=== PATIENT | male | born 1950 | race Caucasian/White ===

== ENCOUNTER 2017-11-20 08:35 | Emergency (ER) | payer BC, OTHER ==
--- NOTE | 2017-11-20 09:23 | EDPHYS ---
Physician Documentation [facility] Name: Bart Forrest Age: 67 yrs Sex: Male : 1950 Arrival Date: 11/20/2017 Time: 08:39 Bed 16 Private MD: ED Physician Nury Centeno HPI: 11/20 09:20 This 67 yrs old Male presents to ER via Ambulatory with complaints of ma2 Shoulder Pain. 09:20 The patient or guardian complains of pain, that is acute. left shoulder. Context: The ma2 problem was sustained. 09:20 Context: started yesterday after got pneumococcal injection at same site . Onset: The ma2 symptoms/episode began/occurred gradually, 2 day(s) ago. Associated signs and symptoms: Pertinent negatives: abdominal pain, diaphoresis, dyspnea, neck pain, tingling. Severity of symptoms: At their worst the symptoms were mild. Historical: - Allergies: 08:48 larium; hj - Home Meds: 08:48 pantoprazole 40 mg oral TbEC 1 tab once daily [Active]; metoprolol tartrate 25 mg Oral hj tab 1 tab once daily [Active]; balsalazide 750 mg oral cap 3 caps 3 times per day [Active]; fenofibrate 150 mg oral cap 1 cap once daily [Active]; montelukast 10 mg oral tab 1 tab once daily [Active]; fluticasone 50 mcg/actuation nasal spsn 2 sprays once daily [Active]; Proctozone-HC 2.5 % rectal crea 2 times per day [Active]; Xarelto 20 mg oral tab 1 tab once daily [Active]; - PMHx: 08:48 Hypertension; Hyperlipidemia; allergies; Atrial Fib; hj - PSHx: 08:48 foot surgery; hj - Immunization history:: Adult Immunizations up to date, Last tetanus immunization: up to date Pneumococcal vaccine is up to date, Flu vaccine is up to date. - Social history:: Smoking status: Patient/guardian denies using tobacco, never smoked, Patient uses alcohol, but reports only rare drinking. ROS: 09:20 Constitutional: Negative for fever, chills, and weight loss, ENT: Negative for injury, ma2 pain, and discharge, Neck: Negative for injury, pain, and swelling, Cardiovascular: Negative for chest pain, palpitations, and edema, Abdomen/GI: Negative for abdominal pain, nausea, diarrhea, and constipation, Back: Negative for injury and pain, : Negative for injury, bleeding, discharge, and swelling, Skin: Negative for injury, rash, and discoloration, Neuro: Negative for headache, weakness, numbness, tingling, and seizure, Allergy/Immunology: Negative for hives, rash, and allergies, Endocrine: Negative for neck swelling, polydipsia, polyuria, polyphagia, and marked weight changes, Hematologic/Lymphatic: Negative for swollen nodes, abnormal bleeding, and unusual bruising. Exam: 09:20 Constitutional: This is a well developed, well nourished patient who is awake, alert, ma2 and in no acute distress. Head/Face: Normocephalic, atraumatic. Neck: Trachea midline, no thyromegaly or masses palpated, and no cervical lymphadenopathy. Supple, full range of motion without nuchal rigidity, or vertebral point tenderness. No Meningismus. Chest/axilla: Normal chest wall appearance and motion. Nontender with no deformity. No lesions are appreciated. Cardiovascular: Regular rate and rhythm with a normal S1 and S2. No gallops, murmurs, or rubs. Normal PMI, no JVD. No pulse deficits. MS/ Extremity: Pulses equal, no cyanosis. Neurovascular intact. Full, normal range of motion. Neuro: Awake and alert, GCS 15, oriented to person, place, time, and situation. Cranial nerves II-XII grossly intact. Motor strength 5/5 in all extremities. Sensory grossly intact. Cerebellar exam normal. Normal gait. Vital Signs: 08:48 BP 132 / 81; Pulse 81; Resp 18; Temp 97.9(TE); Pulse Ox 97% on R/A; Weight 86.18 kg; hj Height 5 ft. 8 in. (172.72 cm); Pain 7/10; 09:15 BP 128 / 77; Pulse 74; Resp 16 S; Pulse Ox 98% on R/A; Pain 6/10; jtb 08:48 Body Mass Index 28.89 (86.18 kg, 172.72 cm) hj MDM: 08:58 Patient medically screened. ma2 09:20 Differential diagnosis: DJD, tendonitis, MSK pain. Data reviewed: vital signs, nurses ma2 notes. Counseling: I had a detailed discussion with the patient and/or guardian regarding: the historical points, exam findings, and any diagnostic results supporting the discharge/admit diagnosis, the need for outpatient follow up. Administered Medications: 09:20 Drug: TORadol 60 mg Route: IM; Site: right gluteus; jl7 09:43 Follow up: Response: No adverse reaction; Pain is decreased jl7 Disposition: 11/20/17 09:22 Discharged to Home. Impression: Pain in left shoulder. - Condition is Stable. - Discharge Instructions: Musculoskeletal Pain. - Prescriptions for Tylenol- Codeine #3 300-30 mg Oral Tablet - take 2 tablet by ORAL route every 6 hours As needed; 30 tablet. - Medication Reconciliation Form, Thank You Letter, Antibiotic Education, Prescription Opioid Use form. - Follow up: Private Physician; When: Tomorrow; Reason: Continuance of care. - Problem is new. - Symptoms are unchanged. Signatures: Aquiles Metzger RN RN hj Judy Billings RN RN jl7 Nury Centeno MD MD [facility] Que Pierre j
--- NOTE | 2017-11-20 09:23 | ER ---
Nurse's Notes [facility] Name: Bart Forrest Age: 67 yrs Sex: Male : 1950 Arrival Date: 11/20/2017 Time: 08:39 Bed 16 Private MD: Diagnosis: Pain in left shoulder Presentation: 11/20 08:40 Presenting complaint: Patient states: on Wednesday, i had pneumonia shot on the L hj shoulder at [facility] in [place], the pain on the area is getting worse after the shot until now, the pain is from the L shoulder and radiates to the elbow; denies fever and chills; denies numbness on tingling on the L arm;. Transition of care: patient was not received from another setting of care. Onset of symptoms was November 20, 2017. Care prior to arrival: None. 08:40 Method Of Arrival: Ambulatory 08:40 Acuity: ROBERTO 4 hj Triage Assessment: 08:48 General: Appears in no apparent distress. uncomfortable, Behavior is calm, cooperative, hj appropriate for age. Pain: Complains of pain in anterior aspect of left shoulder, left bicep and left antecubital area. Historical: - Allergies: 08:48 larium; hj - Home Meds: 08:48 pantoprazole 40 mg oral TbEC 1 tab once daily [Active]; metoprolol tartrate 25 mg Oral hj tab 1 tab once daily [Active]; balsalazide 750 mg oral cap 3 caps 3 times per day [Active]; fenofibrate 150 mg oral cap 1 cap once daily [Active]; montelukast 10 mg oral tab 1 tab once daily [Active]; fluticasone 50 mcg/actuation nasal spsn 2 sprays once daily [Active]; Proctozone-HC 2.5 % rectal crea 2 times per day [Active]; Xarelto 20 mg oral tab 1 tab once daily [Active]; - PMHx: 08:48 Hypertension; Hyperlipidemia; allergies; Atrial Fib; hj - PSHx: 08:48 foot surgery; hj - Immunization history:: Adult Immunizations up to date, Last tetanus immunization: up to date Pneumococcal vaccine is up to date, Flu vaccine is up to date. - Social history:: Smoking status: Patient/guardian denies using tobacco, never smoked, Patient uses alcohol, but reports only rare drinking. Screenin:00 Abuse screen: Denies threats or abuse. Denies injuries from another. Nutritional jtb screening: No deficits noted. Tuberculosis screening: No symptoms or risk factors identified. Fall Risk None identified. Assessment: 09:00 General: Appears in no apparent distress. uncomfortable, Behavior is calm, cooperative, jtb appropriate for age, Pt reports receiving a pneumonia vaccine in the left upper shoulder area Wednesday which started the pain.. Pain: Complains of pain in anterior aspect of left shoulder Pain radiates to left bicep, left elbow and left trapezius Pain currently is 7 out of 10 on a pain scale. at worst was 10 out of 10 on a pain scale. Quality of pain is described as stabbing, Pain began Wednesday Is continuous. Neuro: Level of Consciousness is awake, alert, obeys commands, Oriented to person, place, time, situation. Cardiovascular: Patient's skin is warm and dry. Respiratory: Airway is patent Respiratory effort is even, unlabored, Respiratory pattern is regular, symmetrical. GI: No signs and/or symptoms were reported involving the gastrointestinal system. : No signs and/or symptoms were reported regarding the genitourinary system. EENT: No signs and/or symptoms were reported regarding the EENT system. Derm: Skin is intact, Skin is pink, warm \T\ dry. Musculoskeletal: Range of motion: limited in left shoulder. Vital Signs: 08:48 BP 132 / 81; Pulse 81; Resp 18; Temp 97.9(TE); Pulse Ox 97% on R/A; Weight 86.18 kg; hj Height 5 ft. 8 in. (172.72 cm); Pain 7/10; 09:15 BP 128 / 77; Pulse 74; Resp 16 S; Pulse Ox 98% on R/A; Pain 6/10; jtb 08:48 Body Mass Index 28.89 (86.18 kg, 172.72 cm) ED Course: 08:39 Patient arrived in ED. rg4 08:43 Triage completed. hj 08:48 Arm band placed on right wrist. hj 08:51 Judy Billings RN is Primary Nurse. jl7 08:58 Nury Centeno MD is Attending Physician. ma2 09:00 Patient has correct armband on for positive identification. Placed in gown. Bed in low jtb position. Call light in reach. Side rails up X 1. Pulse ox on. NIBP on. 09:43 No provider procedures requiring assistance completed. Patient did not have IV access jtb during this emergency room visit. Administered Medications: 09:20 Drug: TORadol 60 mg Route: IM; Site: right gluteus; jl7 09:43 Follow up: Response: No adverse reaction; Pain is decreased jl7 Outcome: 09:22 Discharge ordered by . santy 09:43 Discharged to home ambulatory. jtb 09:43 Condition: stable 09:43 Discharge instructions given to patient, family, Instructed on discharge instructions, follow up and referral plans. medication usage, Demonstrated understanding of instructions, follow-up care, medications, Prescriptions given X 1. 09:45 Attestation : I agree with everything documented by Que Pierre, Student Nurse. jl7 09:46 Patient left the ED. jtb Signatures: Aquiles Metzger, RN RN Barb Ontiveros 4 Judy Billings RN RN jl7 Nury Centeno MD MD ma2 Bryson, James jraymundo Corrections: (The following items were deleted from the chart) 09:14 09:00 General: Appears in no apparent distress. uncomfortable, Behavior is calm, jtb cooperative, appropriate for age, jtb
[2017-11-20] MEDS ORDERED: KETOROLAC 30 MG/ML INJ ONE (09:32)
== END 2017-11-20 09:46 | disposition home or self-care (01) ==
LOC: ER 08:35
DX: M25.512 Pain in left shoulder (principal); I10 Essential (primary) hypertension; E78.5 Hyperlipidemia, unspecified; I48.91 Unspecified atrial fibrillation; Z88.8 Allergy status to other drugs, medicaments and biological substances
CPT/HCPCS: 96372; 99283

== ENCOUNTER 2018-04-13 07:31 | Emergency (ER) | payer OTHER ==
[2018-04-13] MEDS ORDERED: PHENYLEPHRINE 0.5% NOSE 15ML NAS ONE (07:48)
--- NOTE | 2018-04-13 09:56 | ER ---
Nurse's Notes [facility] Name: Bart Forrest Age: 68 yrs Sex: Male : 1950 Arrival Date: 04/13/2018 Time: 07:33 Bed 20 Private MD: Ming Townsend T Diagnosis: Epistaxis Presentation: 04/13 07:36 Presenting complaint: Patient states: Had sinus surgery 1 week ago, started bleeding at jl7 0130 this morning and hasn't stopped, takes Xarelto. Transition of care: patient was not received from another setting of care. Onset of symptoms was April 13, 2018. Risk Assessment: Do you want to hurt yourself or someone else? Patient reports no desire to harm self or others. Initial Sepsis Screen: Does the patient meet any 2 criteria? No. Patient's initial sepsis screen is negative. Does the patient have a suspected source of infection? No. Patient's initial sepsis screen is negative. Care prior to arrival: None. 07:36 Method Of Arrival: Ambulatory [facility] 07:36 Acuity: ROBERTO 3 jl7 Triage Assessment: 07:55 General: Appears in no apparent distress. uncomfortable, Behavior is calm, cooperative, jl7 appropriate for age. Pain: Denies pain. EENT: Nares with bleeding noted on left. Neuro: Level of Consciousness is awake, alert, obeys commands, Oriented to person, place, time, situation. Cardiovascular: Patient's skin is warm and dry. Respiratory: Airway is patent Respiratory effort is even, unlabored, Respiratory pattern is regular, symmetrical. GI: No signs and/or symptoms were reported involving the gastrointestinal system. : No signs and/or symptoms were reported regarding the genitourinary system. Derm: Skin is pink, warm \T\ dry. Musculoskeletal: No signs and/or symptoms reported regarding the musculoskeletal system. Historical: - Allergies: 07:55 larium; jl7 - Home Meds: 07:55 pantoprazole 40 mg Oral TbEC 1 tab once daily [Active]; fenofibrate 145 mg oral cap jl7 once daily [Active]; montelukast 10 mg Oral tab 1 tab once daily [Active]; balsalazide 750 mg Oral cap 3 caps [Active]; metoprolol tartrate 25 mg Oral tab 1 tab once daily [Active]; Xarelto 20 mg Oral tab 1 tab once daily [Active]; ferrous gluconate 324 mg (36 mg iron) Oral tab [Active]; fluticasone 50 mcg/actuation nasal spsn 2 sprays once daily [Active]; Proctozone-HC 2.5 % rectal crea 2 times per day [Active]; Vega 128 Opht [Active]; mupirocin topical topical [Active]; - PMHx: 07:55 allergies; Atrial Fib; Hyperlipidemia; Hypertension; jl7 - PSHx: 07:55 Nasal Surgery; Right foot surgery; jl7 - Immunization history:: Adult Immunizations up to date. - Social history:: Smoking status: Patient/guardian denies using tobacco. - Family history:: not pertinent. - Ebola Screening: : No symptoms or risks identified at this time. - Hospitalizations: : No recent hospitalization is reported. Screenin:58 Abuse screen: Denies threats or abuse. Denies injuries from another. Nutritional jl7 screening: No deficits noted. Tuberculosis screening: No symptoms or risk factors identified. Fall Risk None identified. Assessment: 07:45 Reassessment: Dr. Han administered nasal spray and placed nose clamp. jl7 07:58 General: See triage assessment. jl7 08:25 Reassessment: Dr. Han removed nose clamp and pt had a small amount of blood start to jl7 drip. Dr. Han placed a rapid rhino. Will continue to monitor. 09:30 Reassessment: Patient and/or family updated on plan of care and expected duration. Pain jl7 level reassessed. Patient is alert, oriented x 3, equal unlabored respirations, skin warm/dry/pink. 10:05 Reassessment: pt attempted to get out of bed and reported his nose started bleeding jl7 again, ERD notified. 10:30 Reassessment: Pt's bleeding appears to be clotted off, pt reported talking to his ENT jl7 doctor and has an appointment today at 1545. 10:56 Reassessment: Pt states his ENT doctor is requesting for blood work to be done prior to jl7 discharge so she will have the results for his appointment today. ERD notified. Pt will be discharged once results are back. 12:09 Reassessment: Rapid rhino remains in place, no active bleeding noted. Pt is discharged jl7 and will leave once his returns. Vital Signs: 07:55 BP 142 / 59; Pulse 72; Resp 16 S; Temp 98.2(TE); Pulse Ox 97% on R/A; Weight 86.18 kg jl7 (R); Height 5 ft. 8 in. (172.72 cm) (R); Pain 0/10; 08:35 BP 125 / 59; Pulse 57; Resp 16; Pulse Ox 97% on R/A; jl7 09:55 BP 118 / 69; Pulse 56; Resp 19 S; Pulse Ox 98% on R/A; jl7 10:56 BP 127 / 72; Pulse 61; Resp 16 S; Pulse Ox 98% on R/A; jl7 12:09 BP 128 / 71; Pulse 60; Resp 16; Pulse Ox 98% ; jl7 07:55 Body Mass Index 28.89 (86.18 kg, 172.72 cm) jl7 ED Course: 07:33 Patient arrived in ED. mr 07:33 Ming Townsend MD is Private Physician. mr 07:36 Linus Han MD is Attending Physician. rn 07:36 Judy Billings RN is Primary Nurse. jl7 07:48 Triage completed. jl7 07:55 Arm band placed on right wrist. jl7 07:58 Patient has correct armband on for positive identification. Bed in low position. Call jl7 light in reach. Side rails up X 1. Pulse ox on. NIBP on. 09:56 Ming Townsend MD is Referral Physician. rn 09:56 Referral Physician role handed off by Ming Townsend MD rn 11:08 Initial lab(s) drawn, by ks, sent to lab. Inserted saline lock: 20 gauge in left jl7 antecubital area, using aseptic technique. Blood collected. 12:09 No provider procedures requiring assistance completed. IV discontinued, intact, jl7 bleeding controlled, No redness/swelling at site. Pressure dressing applied. Administered Medications: 07:50 Drug: Merrill-Synephrine [place] 0.5 % 1 sprays Route: Intranasal; Site: both nares; jl7 08:01 CANCELLED (Other Intervention Used): Oxymetazoline Drops (0.05 %) 1 sprays Intranasal jl7 once Outcome: 09:56 Discharge ordered by . rn 12:09 Discharged to home ambulatory. jl7 12:09 Condition: stable 12:09 Discharge instructions given to patient, Instructed on discharge instructions, follow up and referral plans. medication usage, Demonstrated understanding of instructions, follow-up care, medications, Prescriptions given X 1. 12:24 Patient left the ED. jl7 Signatures: Starla Coates Roman, MD MD rn Leal, SON Kim RN vince Corrections: (The following items were deleted from the chart) 12:12 12:09 Discharged to home ambulatory, jl7 jl7 12:12 12:09 Discharge instructions given to patient, Instructed on discharge instructions, jl7 follow up and referral plans. Demonstrated understanding of instructions, follow-up care, jl7
--- NOTE | 2018-04-13 09:56 | EDPHYS ---
Physician Documentation [facility] Name: Bart Forrest Age: 68 yrs Sex: Male : 1950 Arrival Date: 04/13/2018 Time: 07:33 Bed 20 Private MD: Ming Townsend T ED Physician Linus Han HPI: 04/13 07:49 This 68 yrs old Male presents to ER via Ambulatory with complaints of Nose rn bleed. 07:49 The patient presents with a nose bleed, that is apparently anterior, occurred from an rn unknown cause, that is continuous small amount. Onset: The symptoms/episode began/occurred this morning. Associated signs and symptoms: Loss of consciousness: the patient experienced no loss of consciousness, Pertinent negatives: chest pain, lightheadedness, shortness of breath. Severity of symptoms: At their worst the symptoms were moderate in the emergency department the symptoms have improved. The patient has not experienced similar symptoms in the past. The patient has been recently seen by a physician:. Reports recent sinus surgery, has been doing fine this week, this AM woke up with nose bleed, slowly improving, tried nasal rinse, no sob/lightheadedness, on xarelto. Sleep with cpap.. Historical: - Allergies: 07:55 larium; jl7 - Home Meds: 07:55 pantoprazole 40 mg Oral TbEC 1 tab once daily [Active]; fenofibrate 145 mg oral cap jl7 once daily [Active]; montelukast 10 mg Oral tab 1 tab once daily [Active]; balsalazide 750 mg Oral cap 3 caps [Active]; metoprolol tartrate 25 mg Oral tab 1 tab once daily [Active]; Xarelto 20 mg Oral tab 1 tab once daily [Active]; ferrous gluconate 324 mg (36 mg iron) Oral tab [Active]; fluticasone 50 mcg/actuation nasal spsn 2 sprays once daily [Active]; Proctozone-HC 2.5 % rectal crea 2 times per day [Active]; Vega 128 Opht [Active]; mupirocin topical topical [Active]; - PMHx: 07:55 allergies; Atrial Fib; Hyperlipidemia; Hypertension; jl7 - PSHx: 07:55 Nasal Surgery; Right foot surgery; jl7 - Immunization history:: Adult Immunizations up to date. - Social history:: Smoking status: Patient/guardian denies using tobacco. - Family history:: not pertinent. - Ebola Screening: : No symptoms or risks identified at this time. - Hospitalizations: : No recent hospitalization is reported. 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 Exam: 07:49 Constitutional: This is a well developed, well nourished patient who is awake, alert, rn and in no acute distress. ENT: + anterior blood in left nare, slow bleeding with some clot visualized, unable to visualize exact bleeder. Vital Signs: 07:55 BP 142 / 59; Pulse 72; Resp 16 S; Temp 98.2(TE); Pulse Ox 97% on R/A; Weight 86.18 kg jl7 (R); Height 5 ft. 8 in. (172.72 cm) (R); Pain 0/10; 08:35 BP 125 / 59; Pulse 57; Resp 16; Pulse Ox 97% on R/A; jl7 09:55 BP 118 / 69; Pulse 56; Resp 19 S; Pulse Ox 98% on R/A; jl7 10:56 BP 127 / 72; Pulse 61; Resp 16 S; Pulse Ox 98% on R/A; jl7 12:09 BP 128 / 71; Pulse 60; Resp 16; Pulse Ox 98% ; jl7 07:55 Body Mass Index 28.89 (86.18 kg, 172.72 cm) jl7 Procedures: 08:37 Epistaxis treatment: A small amount of bleeding noted from Treated using Oxymetazoline rn sprays, nasal clamp, anterior packing, Bleeding stopped. MDM: 07:36 Patient medically screened. rn 09:55 Differential diagnosis: spontaneous epistaxis. Data reviewed: vital signs, nurses rn notes, and as a result, I will discharge patient. Counseling: I had a detailed discussion with the patient and/or guardian regarding: the historical points, exam findings, and any diagnostic results supporting the discharge/admit diagnosis, the need for outpatient follow up, to return to the emergency department if symptoms worsen or persist or if there are any questions or concerns that arise at home. Response to treatment: the patient's symptoms have markedly improved after treatment, and as a result, I will discharge patient. Special discussion: I discussed with the patient/guardian in detail that at this point there is no indication for admission to the hospital. It is understood, however, that if the symptoms persist or worsen the patient needs to return immediately for re-evaluation. Based on the history and exam findings, there is no indication for further emergent testing or inpatient evaluation. I discussed with the patient/guardian the need to see the ENT specialist for further evaluation of the symptoms. ED course: Pt is calling his ENT for f/u today, told to return if worsens. . 04/13 10:55 Order name: CBC with Diff; Complete Time: 11:33 rn 04/13 10:55 Order name: Protime (+inr); Complete Time: 11:33 rn 04/13 10:55 Order name: Ptt, Activated; Complete Time: 11:33 rn 04/13 10:55 Order name: Basic Metabolic Panel; Complete Time: 11:33 rn 04/13 10:55 Order name: IV Start; Complete Time: 11:08 rn Administered Medications: 07:50 Drug: Merrill-Synephrine [place] 0.5 % 1 sprays Route: Intranasal; Site: both nares; jl7 08:01 CANCELLED (Other Intervention Used): Oxymetazoline Drops (0.05 %) 1 sprays Intranasal jl7 once Disposition: 04/13/18 09:56 Discharged to Home. Impression: Epistaxis. - Condition is Stable. - Discharge Instructions: Nosebleed, Adult. - Prescriptions for Augmentin 875- 125 mg Oral Tablet - take 1 tablet by ORAL route every 12 hours for 10 days; 20 tablet. - Medication Reconciliation Form, Thank You Letter, Antibiotic Education, Prescription Opioid Use form. - Follow up: Ming Townsend MD; When: As needed; Reason: Recheck today's complaints, Re-evaluation by your physician. Follow up: Private Physician; When: Upon discharge from the Emergency Department; Reason: Recheck today's complaints, Re-evaluation by your physician. - Problem is new. - Symptoms have improved. Signatures: Dispatcher [employer] EDMS Linus Han MD MD rn Billings, Jahala, RN RN jl7 Corrections: (The following items were deleted from the chart) 08:01 07:49 Oxymetazoline Drops (0.05 %) 1 sprays Intranasal once ordered. orquidea jl7 12:24 09:56 04/13/2018 09:56 Discharged to Home. Impression: Epistaxis. Condition is Stable. jl7 Forms are Medication Reconciliation Form, Thank You Letter, Antibiotic Education, Prescription Opioid Use. Follow up: Private Physician; When: Upon discharge from the Emergency Department; Reason: Recheck today's complaints, Re-evaluation by your physician. Problem is new. Symptoms have improved. rn
[2018-04-13 11:22] LABS: Absolute Lymphocytes (CBC) 1.1 K/uL (0.7-4.9); Absolute Monocytes 0.5 K/uL (0.1-1.3); Absolute Neutrophil 4.2 K/uL (1.8-8.0); Basophils % 0.6 % (0-1.3); Eosinophils % 1.3 % (0-4.4); Hematocrit 38.2 % (39.6-49.0); Lymphocytes % 17.8 % (15.3-44.8); MCH 29.4 pg (27.0-35.0); MCV 86.9 fL (80-100); MPV 8.4 fL (7.6-11.3); Monocytes % 8.8 % (3.3-12.3); RBC Red Blood Cell Count 4.39 M/uL (4.33-5.43)
[2018-04-13 11:24] LABS: Protime INR 1.32
[2018-04-13 11:28] LABS: Potassium 4.4 mmol/L (3.5-5.1)
== END 2018-04-13 12:24 | disposition home or self-care (01) ==
LOC: ER 07:31
PROC: 2Y41X5Z Packing of Nasal Region using Packing Material (ICD-10-PCS; principal; 2018-04-13)
DX: R04.0 Epistaxis (principal); I10 Essential (primary) hypertension; I48.91 Unspecified atrial fibrillation; E78.5 Hyperlipidemia, unspecified; Z79.02 Long term (current) use of antithrombotics/antiplatelets; Z88.8 Allergy status to other drugs, medicaments and biological substances
CPT/HCPCS: 30901; 36415; 80048; 85025; 85610; 85730; 99284

== ENCOUNTER 2022-10-28 06:22 | Day surgery (SDC) | payer OTHER ==
[2022-10-28 07:04] LABS: Hematocrit 33.3 % (39.6-49.0); MCV 86.4 fL (80-100); MPV 7.5 fL (7.6-11.3); RBC Red Blood Cell Count 3.85 M/uL (4.33-5.43)
[2022-10-28 07:17] LABS: Potassium 3.8 mmol/L (3.5-5.1)
[2022-10-28] MEDS ORDERED: CEFAZOLIN SODIUM 1 GM/VIAL ONE (07:32)
[2022-10-28] MEDS ORDERED: Ringers Lactate 1,000 ML IV ONE (07:32)
--- NOTE | 2022-10-28 07:46 | RAD REPORT ---
EXAM DESCRIPTION: RAD - Chest Single View - 10/28/2022 6:54 am CLINICAL HISTORY: PREOP COMPARISON: No comparisons FINDINGS: Lines: None. Lungs: No evidence of edema or pneumonia. Pleural: No significant pleural effusions or pneumothorax. Cardiac: The heart size is within normal limits. Mediastinum: Within normal limits. Bones: No acute fractures. Other: None IMPRESSION: No acute cardiopulmonary disease.
[2022-10-28] MEDS ORDERED: CELECOXIB 100 MG CAPSULE ONE (09:12)
[2022-10-28] MEDS ORDERED: BUPIVACAINE 0.5% PF 10 ML VIAL ONE (09:12)
[2022-10-28] MEDS ORDERED: ACETAMINOPHEN 500 MG TAB ONE (09:12)
[2022-10-28] MEDS ORDERED: ROCURONIUM 50 MG/5 ML VIAL IV ONE (09:16)
[2022-10-28] MEDS ORDERED: propofoL 200 MG/20 ML VIAL IV ONE (09:16)
[2022-10-28] MEDS ORDERED: FENTANYL CITR 100 MCG/2 ML ONE (09:16)
[2022-10-28] MEDS ORDERED: LIDOCAINE 2% MPF 5 ML VIAL ONE (09:16)
[2022-10-28] MEDS ORDERED: ONDANSETRON 4 MG/2 ML VIAL ONE (09:16)
[2022-10-28] MEDS ORDERED: dexAMETHasone 10 MG/ML VIAL ONE (09:18)
[2022-10-28] MEDS ORDERED: KETOROLAC 30 MG/ML INJ ONE (09:19)
[2022-10-28] MEDS ORDERED: NS 0.9% VIAL 10 ML ONE (09:57)
[2022-10-28] MEDS ORDERED: GLYCOPYRROLATE 0.2 MG/ML SYR ONE ×2 (10:07→10:27)
[2022-10-28] MEDS ORDERED: EPHEDRINE SULF 50 MG/ML VIAL ONE (10:09)
[2022-10-28] MEDS ORDERED: NEOSTIGMINE 1 MG/ML -10 ML VIAL ONE (10:28)
--- NOTE | 2022-10-28 10:28 | P.OP ---
Date of Service: 10/28/22 Preop diagnosis: Umbilical hernia Postop diagnosis: Same Procedure performed: Laparoscopic assisted repair of umbilical hernia Surgeon: Ayo Hall MD Wafer Slicer: SUN Ibarra Estimated blood loss: Minimal Specimen: Hernia sac and contents Findings: As above Anesthesia: General Complications: None Drains: None Fluids and blood products: Nonapplicable Disposition: Recovery room Operative note: Patient brought to the OR and placed in supine position. General anesthesia begun. Patient prepped and draped in the usual sterile fashion. Marcaine 0.5% infiltrated locally. 15 blade used to make a 1 cm left upper quadrant incision. Subcutaneous tissue divided. Fascia identified and divided. #1 Vicryl stay suture placed. Peritoneal cavity entered with sharp and blunt dissection. 12 mm trocar placed into the peritoneal cavity under direct vision. Pneumoperitoneum established. And then 5 mm trocar placed in the left lower quadrant. Under direct vision. Laparoscopy revealed a small umbilical hernia approximately 2 cm in diameter. There was no incarceration present. A 3 cm incision was made right over the umbilicus. Subcutaneous tissue divided. Hernia sac and contents identified. Hernia sac excised sent to pathology as specimen. 2 cm defect remained. Ventralex mesh placed into the peritoneal cavity in the standard fashion. #1 PDS [id number] suture used to secure the mesh and closed the midline fascia. Subsequently pneumoperitoneum reestablished. And pro tacker used to tack the mesh to the peritoneal surface. Complete coverage of the defect accomplished with at least 3 cm margins on all end. Subsequently all trocars removed under direct vision. Stay sutures tied to reapproximate the fascial defect. Subcutaneous wounds irrigated and bleeding controlled with cautery. 0 chromic used to approximate subcutaneous tissue and close skin. Sterile dressing applied. Patient awakened and taken to recovery room in good general condition. CC: Dr. Townsend's office
[2022-10-28] MEDS ORDERED: HYDROCODONE/APAP 7.5/325 MG TAB PO PRN (10:30)
[2022-10-28] MEDS ORDERED: HYDROMORPHONE HCL 1 MG/ML INJ ONE (10:59)
[2022-10-28] MEDS ORDERED: HYDROCODONE/APAP 7.5/325 MG TAB ONE (11:38)
[2022-10-28 13:07] VITALS: BP 112/58; TEMP 96.9; O2SAT 95
--- NOTE | 2022-10-28 15:19 | EKG ---
Test Date: 2022-10-28 Test Time: 07:29:37 Child Care Lead Teacher: KRYSTEN MEASUREMENT RESULTS: Intervals: Rate: 51 IN: 148 QRSD: 102 QT: 438 QTc: 403 [place]: P: 60 IN: 148 QRS: 45 T: 20 INTERPRETIVE STATEMENTS: Sinus bradycardia Otherwise normal ECG Compared to ECG 09/11/2004 05:49:00 Sinus rhythm no longer present T-wave abnormality no longer present Electronically Signed On 10-28-22 15:19:07 EYELET CUTTER by Dewey Bond
== END 2022-10-28 12:40 | disposition home or self-care (01) ==
LOC: PRE 06:22 → OR 12:40
PROVIDERS: ATTEND Surgery
PROC: 0WUF4JZ Supplement Abdominal Wall with Synthetic Substitute, Percutaneous Endoscopic Approach (ICD-10-PCS; principal; 2022-10-28 08:45)
DX: K42.9 Umbilical hernia without obstruction or gangrene (principal)
CPT/HCPCS: 93005; 85025; 80048; 36415; 88302; 71045; 49591; J2704; J2710; J2001; J3010; J1100; A4216; J1170; J7120; J2405; J0690

== ENCOUNTER 2022-10-28 15:39 | Inpatient (IN) | payer OTHER ==
--- OUTSIDE RECORDS SUMMARY | 2022-10-28 15:44 | XMS REPORT | Continuity of Care Document ---
:1950 [facility] t Address Formerly [facility], [id number] [place] [address] Care Team Providers Name Role Phone KEEGAN STRATTON Primary Care Physician Unavailable [facility] Attending Clinician Unavailable ZABRINA GASTON Attending Clinician Unavailable Zabrina Gastno MD Attending Clinician Doctor Unassigned, [place] Attending Clinician Unavailable ROSLYN PERRY Attending Clinician Unavailable [facility] Admitting Clinician Unavailable ZABRINA GASTON Admitting Clinician Unavailable Payers Payer Name Policy Type Policy Number Effective Date Expiration Date S ourhugo [employer] PPO POS EPO [id number] 2013 CHOICE 00:00:00 [employer] MANAGED [id number] 2021 MEDICARE PPO-PEDRO 00:00:00 [employer] MEDICARE HMO [id number] 2019 POS 00:00:00 Problems Condition Condition Condition Status Onset Resolution Last Treating Co mments Source Name Details Category Date Date Treatment Clinician Date No known No known Disease Unive rs active active ity of problems problems [facility] Allergies, Adverse Reactions, Alerts Allergy Allergy Status Severity Reaction(s) Onset Inactive Treating Comm ents Source Name Type Date Date Clinician Co Propensi Active Other - See Lowers Uni vers [id number] ty to comments 5-23 blood ity of Oil-Omeg adverse 00:00: pressure [place] a 3-E reaction 00 Medical s Branch Mefloqui Propensi Active Other - See Migraine s Univers ne Hcl ty to comments 01-26 ity of adverse 00:00: [place] reaction 00 Medical s Branch Pitavast Propensi Active Other - See Muscle U nivers atin ty to comments 01-26 weakness ity of adverse 00:00: [place] reaction 00 Medical s Branch Lovastat Propensi Active Other - See Lowers U nivers in ty to comments 01-26 cholester ity o f adverse 00:00: ol [place] reaction 00 Medical s Branch Pravasta Propensi Active Other - See Lowers U nivers tin ty to comments 01-26 cholestro ity o f adverse 00:00: l [place] reaction 00 Medical s Branch Amoxicil Propensi Active Diarrhea Univ ers billie-Pot ty to 03-07 ity of Clavulan adverse 00:00: [place] ate reaction 00 Medical s Branch Simvasta Propensi Active Other - See Mild U nivers tin ty to comments 03-07 Muscle ity of adverse 00:00: Pains in [place] reaction 00 the legs Medica l s Branch Naproxen Drug Active Hives WHELPS [facility] S[facility] Allergy 02-07 (BLOOD [facility] 00:00: BLISTERS) Medical 00 Center Amoxicil Drug Active Diarrhea [facility] Allergy 02-07 [facility] 00:[facility]: Medical 00 Center Mefloqui Drug Active Other (See MIGRAINES [facility] Allergy Comments) 02-07 [facility] 00:[facility] Medical 00 Center Simvasta Drug Active Other (See MUSCLE [facility] tin Allergy Comments) 02-07 PAIN [facility] 00:[facility]: Medical 00 Center Metoprol Drug Active Itching [facility] Allergy 02-07 [facility] Succinat 00:[facility]: Medical e 00 Center Amoxicil Propensi Active Diarrhea Univ ers billie ty to 02-07 ity of adverse 00:00: [place] reaction 00 Medical s Branch Mefloqui Propensi Active Other - See MIGRAINE S Univers ne ty to comments 02-07 ity of adverse 00:00: [place] reaction 00 Medical s Branch Metoprol Propensi Active Itching Unive rs ol ty to 02-07 ity of Succinat adverse 00:00: [place] e reaction 00 Medical s Branch Naproxen Propensi Active Other - See WHELPS U nivers Sodium ty to comments 02-07 (BLOOD ity of adverse 00:00: BLISTERS) [place] reaction 00 Medical s Branch NAPROXEN Allergy Active High Hives [facility] SODIUM 6-04 [facility]: Medical 00 Center AMOXICIL Allergy Active Med Diarrhea [facility] 6[facility]04 [facility] 00:[facility] Medical 00 Center MEFLOQUI Allergy Active Low Other [facility] 6-04 [facility] 00:[facility]: Medical 00 Center SIMVASTA Allergy Active Low Other [facility] TIN 6-04 [facility] 00:[facility]: Medical 00 Center METOPROL Allergy Active Low Itching [facility] OL 6-04 [facility] SUCCINAT 00:00: Medical E 00 Center Social History Social Habit Start Date Stop Date Quantity Comments Source History SDOH [facility] Alcohol Frequency Medical Center History SDOH [facility] Alcohol Std Medical Cente r Drinks History SDOH [facility] Alcohol Binge Medical Betty ter Exposure to 2022-02-15 2022-02-25 Not sure [facility] SARS-CoV-2 00:00:00 13:51:00 [facility] (event) Branch Alcohol intake 2020-03-07 2020-03-07 [facility]er [facility] alcohol [facility] (finding) History SDOH 2014-02-07 2014-02-[address] [facility] Alcohol Comment 00:00:00 00:00:00 Medical C enter Tobacco use and 2014-02-07 2014-02-[address] [facility] exposure 00:00:00 00:00:00 Medical Center Sex Assigned At [address] [address] [facility] 00:00:00 00:00:00 Medical Center Smoking Status Start Date Stop Date Source Never smoker [facility] Medical Branch Medications Ordered Filled Start Stop Current Ordering Indication Dosage Frequency Signature Comments Components Source Medication Medication Date Date Medication? Clinician (SIG) Name Name montelukast Yes 10mg QD Take [address] (SINGULAIR) 03-07 by mouth Luke s 10 mg 12:15: nightly. Medical tablet 33 [place] balsalazide 2020-0 Yes 2250mg Q.5D Take 2,[address] (COLAZAL) 7-02 mg by [facility] 750 mg 12:15: mouth 2 Medical capsule 33 (two) Center times daily. desoximetas 2020-0 Yes Q.5D Apply [facility] one 7- topically [facility] (TOPICORT) 12:15: 2 (two) Medi hu 0.25 % 33 times Center cream daily. fexofenadin 2020-0 Yes 180mg QD Take [address] (KALEB) 7-02 mg by [facility] 180 MG 12:15: mouth Medical tablet 33 daily. [place] acetaminoph 2020-0 Yes 500mg Take [address] en 7-02 mg by [facility] (TYLENOL) 12:15: mouth Medical 500 MG 33 every 6 Center tablet (six) hours as needed for Pain. fenofibrate 2020-0 Yes 145mg QD Take [address] (TRICOR) 7-02 mg by [facility] 145 MG 12:15: mouth Medical tablet 33 daily. [place] fluticasone 2020-0 Yes 1{spray QD [address] propionate 7- } Nasal [facility] (FLONASE) 12:15: route Medical 50 33 daily. Center mcg/actuati on nasal spray Missing or 2020-[address] Non-Formula 7- [facility] ry 12:15: Medical Medication [address] [place] [address] folic acid 2019-0 Yes 1mg QD Take [address] (FOLVITE) 1 7-02 by mouth Luke s MG tablet 12:15: daily. Medica l 33 [place] ferrous 2020-0 Yes Take by [facility] gluconate 7-02 mouth. [facility] 324 mg 12:15: Medical (37.[address] [place] [address] iron) Tab zinc 2019-0 Yes 50mg QD Take [address] gluconate 7-02 by mouth [facility] 50 mg 12:15: daily. Medical tablet 33 [place] guaiFENesin 2020-0 Yes 1200mg Q.5D Take 1,[address] (MUCINEX) 7-02 mg by [facility] 600 mg 12 12:15: mouth 2 Medic al hr tablet 33 (two) Center times daily. 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 Medic al 20 MG 33 Center tablet metoprolol 2019-0 Yes 25mg QD Take [address] (TOPROL-XL) 7-02 by mouth Luke s 25 MG 24 hr 12:15: daily. Medi hu tablet 33 Center montelukast 2019-0 Yes 10mg QD Take [address] (SINGULAIR) -02 by mouth Luke s 10 mg 12:15: nightly. Medical tablet 33 Center balsalazide 2019-0 Yes 2250mg Q.5D Take 2,[address] (COLAZAL) 7-02 mg by [facility] 750 mg 12:15: mouth 2 Medical capsule 33 (two) Center times daily. desoximetas 2020-0 Yes Q.5D Apply [facility] t one 03-07 topically [facility] (TOPICORT) 12:15: 2 (two) Medi hu 0.25 % 33 times Center cream daily. fexofenadin 2019-0 Yes 180mg QD Take [address] [facility] (KALEB) 7-02 mg by [facility] 180 MG 12:15: mouth Medical tablet 33 daily. [place] acetaminoph 2019-0 Yes 500mg Take [address] en 7-02 mg by [facility] (TYLENOL) 12:15: mouth Medical 500 MG 33 every 6 Center tablet (six) hours as needed for Pain. fenofibrate 2019-0 Yes 145mg QD Take [address] (TRICOR) 7-02 mg by [facility] 145 MG 12:15: mouth Medical tablet 33 daily. [place] fluticasone 2019-0 Yes 1{spray QD [address] propionate 03-07 } Nasal [facility] (FLONASE) 12:15: route Medical 50 33 daily. Center mcg/actuati on nasal spray Missing or 2019-[address] Non-Formula 03-07 [facility] ry 12:15: Medical Medication 33 [place] folic acid 2019-0 Yes 1mg QD Take [address] (FOLVITE) 1 - by mouth Luke s MG tablet 12:15: daily. Medica l 33 Center ferrous 2020-0 Yes Take by [facility] gluconate - mouth. [facility] 324 mg 12:15: Medical (37.5 mg 33 Center iron) Tab zinc 2019-0 Yes 50mg QD Take [address] gluconate 7-02 by mouth [facility] 50 mg 12:15: daily. Medical tablet 33 [place] guaiFENesin 2020-0 Yes 1200mg Q.5D Take 1,[address] (MUCINEX) 7-02 mg by [facility] 600 mg 12 12:15: mouth 2 Medic al hr tablet 33 (two) Center times daily. 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 Medic al [address] [place] [address] tablet metoprolol 2019-0 Yes 25mg QD Take [address] (TOPROL-XL) 7-02 by mouth Luke s 25 MG 24 hr 12:15: daily. Medi hu tablet 33 [place] montelukast 2020-0 Yes 10mg QD Take [address] (SINGULAIR) 7-02 by mouth Luke s 10 mg 12:15: nightly. Medical tablet 33 [place] balsalazide 2019-0 Yes 2250mg Q.5D Take 2,[address] (COLAZAL) 7-02 mg by [facility]ukes 750 mg 12:15: mouth 2 Medical capsule 33 (two) Center times daily. desoximetas 2020-0 Yes Q.5D Apply [facility] t one 03-07 topically [facility] (TOPICORT) 12:15: 2 (two) Medi hu 0.25 % 33 times Center cream daily. fexofenadin 2020-0 Yes 180mg QD Take [address] (KALEB) 7-02 mg by [facility] 180 MG 12:15: mouth Medical tablet 33 daily. [place] acetaminoph 2020-0 Yes 500mg Take [address] en 7-02 mg by [facility]ukes (TYLENOL) 12:15: mouth Medical 500 MG 33 every 6 Center tablet (six) hours as needed for Pain. fenofibrate 2020-0 Yes 145mg QD Take [address] (TRICOR) 7-02 mg by [facility]ukes 145 MG 12:15: mouth Medical tablet 33 daily. [place] fluticasone 2020-0 Yes 1{spray QD [address] propionate 7- } Nasal [facility] (FLONASE) 12:15: route Medical 50 33 daily. Center mcg/actuati on nasal spray Missing or 2020-[address] Non-Formula 7- [facility]ukes ry 12:15: Medical Medication [address] [place] [address] folic acid 2019-0 Yes 1mg QD Take [address] (FOLVITE) 1 7-02 by mouth Luke s MG tablet 12:15: daily. Medica l [address] [place] [address] ferrous 2019-0 Yes Take by [facility] gluconate 7-02 mouth. [facility] 324 mg 12:15: Medical (37.[address] [place] [address] iron) Tab zinc 2019-0 Yes 50mg QD Take [address] gluconate 7-02 by mouth [facility]ukes 50 mg 12:15: daily. Medical tablet [address] [place] [address] guaiFENesin 0 Yes 1200mg Q.5D Take 1,[address] (MUCINEX) 7-02 mg by [facility]ukes 600 mg 12 12:15: mouth 2 Medic al hr tablet 33 (two) Center times daily. UNKNOWN [address] [facility] 7- bpf/ [facility]ukes 12:15: supplement Medical cholestero [place] l adoption coordinator . pantoprazol 0 Yes 20mg QD Take [address] e 7-02 by mouth [facility] (PROTONIX) 12:15: daily. Medic al [address] [place] [address] tablet metoprolol 2019-0 Yes 25mg QD Take [address] (TOPROL-XL) 7-02 by mouth Luke s 25 MG 24 hr 12:15: daily. Medi hu tablet [address] [place] [address] montelukast 2019-0 Yes 10mg QD Take [address] (SINGULAIR) 7-02 by mouth Luke s 10 mg 12:15: nightly. Medical tablet [address] [place] [address] pantoprazol 2019-0 Yes 20mg QD Take [address] e 7-02 by mouth [facility]ukes (PROTONIX) 12:15: daily. Medic al [address] [place] [address] tablet metoprolol 2019-0 Yes 25mg QD Take [address] (TOPROL-XL) 7-02 by mouth Luke s 25 MG 24 hr 12:15: daily. Medi hu tablet [address] [place] [address] montelukast 2019-0 Yes 10mg QD Take [address] (SINGULAIR) 7-02 by mouth Luke s 10 mg 12:15: nightly. Medical tablet [address] [place] [address] balsalazide 2020-0 Yes 2250mg Q.5D Take 2,[address] (COLAZAL) 7-02 mg by [facility]ukes 750 mg 12:15: mouth 2 Medical capsule 33 (two) Center times daily. desoximetas 2020-0 Yes Q.5D Apply [facility] t one 7- topically [facility] (TOPICORT) 12:15: 2 (two) Medi hu 0.25 % 33 times Center cream daily. fexofenadin 2020-0 Yes 180mg QD Take [address] (KALEB) 7-02 mg by [facility]ukes 180 MG 12:15: mouth Medical tablet 33 daily. [place] acetaminoph 2020-0 Yes 500mg Take [address] en 7-02 mg by [facility]ukes (TYLENOL) 12:15: mouth Medical 500 MG 33 every 6 Center tablet (six) hours as needed for Pain. fenofibrate 2020-0 Yes 145mg QD Take [address] (TRICOR) 7-02 mg by [facility]ukes 145 MG 12:15: mouth Medical tablet 33 daily. [place] fluticasone 2019-0 Yes 1{spray QD [address] propionate - } Nasal [facility]ukes (FLONASE) 12:15: route Medical 50 33 daily. [place] mcg/actuati on nasal spray Missing or 2020-[address] Non-Formula 7- [facility]ukes ry 12:15: Medical Medication 33 [place] folic acid 2019-0 Yes 1mg QD Take [address] (FOLVITE) 1 7-02 by mouth Luke s MG tablet 12:15: daily. Medica l 33 [place] ferrous 2019-0 Yes Take by [facility] gluconate 7-02 mouth. [facility] 324 mg 12:15: Medical (37.5 mg 33 [place] iron) Tab zinc 2019-0 Yes 50mg QD Take [address] gluconate 7-02 by mouth [facility]ukes 50 mg 12:15: daily. Medical tablet 33 [place] guaiFENesin 2019-0 Yes 1200mg Q.5D Take 1,[address] (MUCINEX) 7-02 mg by [facility] 600 mg 12 12:15: mouth 2 Medic al hr tablet 33 (two) Center times daily. 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 balsalazide 2019-0 Yes 2250mg Q.5D Take 2,[address] (COLAZAL) 7-02 mg by [facility] 750 mg 12:15: mouth 2 Medical capsule 33 (two) Center times daily. desoximetas 2020-0 Yes Q.5D Apply [facility] t one - topically [facility] (TOPICORT) 12:15: 2 (two) Medi hu 0.25 % 33 times Center cream daily. fexofenadin 2020-0 Yes 180mg QD Take [address] (KALEB) 7-02 mg by [facility]ukes 180 MG 12:15: mouth Medical tablet 33 daily. [place] acetaminoph 2020-0 Yes 500mg Take [address] en 7-02 mg by [facility]ukes (TYLENOL) 12:15: mouth Medical 500 MG 33 every 6 Center tablet (six) hours as needed for Pain. fenofibrate 2020-0 Yes 145mg QD Take [address] (TRICOR) 7-02 mg by [facility]ukes 145 MG 12:15: mouth Medical tablet 33 daily. [place] fluticasone 2019-0 Yes 1{spray QD [address] propionate 03-07 } Nasal [facility] (FLONASE) 12:15: route Medical 50 33 daily. Center mcg/actuati on nasal spray Missing or 2020-[address] Non-Formula - [facility]ukes ry 12:15: Medical Medication 33 [place] folic acid 2019-0 Yes 1mg QD Take [address] (FOLVITE) 1 7-02 by mouth Luke s MG tablet 12:15: daily. Medica l 33 [place] ferrous 2019-0 Yes Take by [facility] gluconate 7- mouth. [facility]ukes 324 mg 12:15: Medical (37.5 mg 33 [place] iron) Tab zinc 2020-0 Yes 50mg QD Take [address] gluconate 7-02 by mouth [facility]ukes 50 mg 12:15: daily. Medical tablet 33 [place] guaiFENesin 2020-0 Yes 1200mg Q.5D Take 1,[address] (MUCINEX) 7-02 mg by [facility] 600 mg 12 12:15: mouth 2 Medic al hr tablet 33 (two) Center times daily. 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 pantoprazol 2020-0 Yes 20mg QD Take [address] e 7-02 by mouth [facility]ukes (PROTONIX) 12:15: daily. Medic al 20 MG 33 Center tablet metoprolol 0 Yes 25mg QD Take [address] (TOPROL-XL) 02 by mouth Luke s 25 MG 24 hr 12:15: daily. Medi hu tablet 33 Center fenofibrate Yes 145mg Take 145 U nivers 145 mg 4-11 mg by ity of tablet 09:29: mouth. [address] SOD[address]UM Yes [address] in Univers CHLORIDE 4-11 each eye. ity of (KRIS 128 09:29: [place] OPHTHALMIC) [address] [place] [address] fenofibrate Yes 145mg Take 145 U nivers 145 mg 4-11 mg by ity of tablet 09:29: mouth. [address] SOD[address]UM Yes Place in Univers CHLORIDE 4-11 each eye. ity of (KRIS 128 09:29: [place] OPHTHALMIC) [address] [place] [address] pantoprazol Yes 20mg Take 20 mg Univers e 20 mg EC 4-11 by mouth. ity of tablet 09:23: [address] pantoprazol Yes 20mg Take 20 mg Univers e 20 mg EC 4-11 by mouth. ity of tablet 09:23: [place] [facility] XARELTO 20 Yes Univers mg tablet 4-03 ity of 00:00: [address] XARELTO 20 Yes Univers mg tablet 4-03 ity of 00:00: [address] pseudoephed Yes 1{tbl} Take 1 Un dagoberto rine-gua[place] 3-19 tablet by ity of nesin 15:46: mouth. [place] 60-600 mg 03 Medical per tablet Branch pseudoephed Yes 1{tbl} Take 1 Un dagoberto r[place] 3-19 tablet by ity of nesin 15:46: mouth. [place] 60-600 mg 03 Medical per tablet Branch fexofenadin Yes 180mg Take 180 U nivers e 180 mg 3-19 mg by ity of tablet 15:45: mouth. [address] fexofenadin Yes 180mg Take 180 U nivers e 180 mg 3-19 mg by ity of tablet 15:45: mouth. [address] methylPREDN Yes 84mg Take 21 Uni vers ISolone 3-19 tablets by ity of (MEDROL, 00:00: mouth [place] MEGAN,) 4 mg 00 SEE-INSTRU Med ical tablets CTIONS. Branch follow package directions methylPREDN Yes 84mg Take 21 Uni vers ISolone 3-19 tablets by ity of (MEDROL, 00:00: mouth [place] MEGAN,) 4 mg 00 SEE-INSTRU Med ical tablets CTIONS. Branch follow package directions metoprolol Yes Univers tartrate 25 3-16 ity of mg tablet 00:00: [place] 00 [facility] metoprolol 0 Yes Univers tartrate 25 3-16 ity of mg tablet 00:00: [place] [facility] PROCTO-MED Yes Univers HC 2.5 % 2-27 ity of rectal 00:00: [place] cream [facility] PROCTO-MED 0 Yes Univers HC 2.5 % 2-27 ity of rectal 00:00: [place] cream [facility] balsalazide 0 Yes Univer s 750 mg 2-15 ity of capsule 00:00: [place] [facility] balsalazide 0 Yes Univer s 750 mg 2-15 ity of capsule 00:00: [place] [facility] fluticasone 0 Yes Univer s 50 2-10 ity of mcg/actuati 00:00: [place] on nasal 00 [facility] spray Branch fluticasone 0 Yes Univer s 50 2-10 ity of mcg/actuati 00:00: [place] on nasal 00 [facility] spray [place] montelukast 0 Yes Univer s 10 mg 1-08 ity of tablet 00:00: [place] [facility] montelukast [address] Yes Univer s 10 mg 1-08 ity of tablet 00:00: [address] Immunizations Ordered Filled Immunization Date Status Comments [facility] e Immunization Name Name SARS-COV-2 COVID-19 2020-11-09 Completed Unive rsity of MODERNA VACCINE 00:00:00 [facility] SARS-COV-2 COVID-19 2020-11-09 Completed Unive rsity of MODERNA VACCINE 00:00:00 [facility] SARS-COV-2 COVID-19 2020-10-12 Completed Unive rsity of MODERNA VACCINE 00:00:00 [facility] SARS-COV-2 COVID-19 2020-10-12 Completed Unive rsity of MODERNA VACCINE 00:00:00 [facility] Vital Signs Vital Name Observation Time Observation Value Comments Source HEIGHT 2020-02-23 00:00:00 172.7 cm WEIGHT 2020-02-23 00:00:00 82.237 kg Body height 2022-02-25 18:59:00 172.7 cm [facility] Body weight 2022-02-25 18:59:00 83.915 kg [facility] BMI 2022-02-25 18:59:00 28.13 kg/m2 [facility] HEIGHT 2020-02-23 00:00:00 172.7 cm WEIGHT 2020-02-23 00:00:00 82.237 kg Procedures This patient has no known procedures. Plan of Care Planned Activity Planned Date Details Comments Source Future Scheduled 2030-03-07 Screening for malignant [facility] Test 00:00:00 neoplasm of colon Medical Ce nter (procedure) [code = 151975321] Future Scheduled 2030-03-07 Screening for malignant [facility] Test 00:00:00 neoplasm of colon Medical Ce nter (procedure) [code = 668263374] Future Scheduled 2030-03-07 Screening for malignant [facility] Test 00:00:00 neoplasm of colon Medical Ce nter (procedure) [code = 501897288] Future Scheduled 2030-03-07 Screening for malignant [facility] Test 00:00:00 neoplasm of colon Medical Ce nter (procedure) [code = 207342207] Future Scheduled 2030-03-07 Screening for malignant [facility] Test 00:00:00 neoplasm of colon Medical Ce nter (procedure) [code = 036256650] Future Scheduled 2030-03-07 Screening for malignant [facility] Test 00:00:00 neoplasm of colon Medical Ce nter (procedure) [code = 514537749] Future Scheduled 2030-03-07 Screening for malignant [facility] Test 00:00:00 neoplasm of colon Medical Ce nter (procedure) [code = 013510523] Future Scheduled 2030-03-07 Screening for malignant [facility] Test 00:00:00 neoplasm of colon Medical Ce nter (procedure) [code = 154032473] Future Scheduled 2030-03-07 Screening for malignant [facility] Test 00:00:00 neoplasm of colon Medical Ce nter (procedure) [code = 669096246] Future Scheduled 2030-03-07 Screening for malignant [facility] Test 00:00:00 neoplasm of colon Medical Ce nter (procedure) [code = 125914581] Future Scheduled 2022-09-[address] [facility] Test 00:00:00 (12+) [code = Medical Center DEPRESSION SCREENING (12+)] Future Scheduled 2022-09-06 FALLS RISK SCREENING [facility] Test 00:00:00 [code = FALLS RISK Medical C enter SCREENING] Future Scheduled 2022-09-[address] [facility] Test 00:00:00 (12+) [code = Medical Center DEPRESSION SCREENING (12+)] Future Scheduled 2022-09-06 FALLS RISK SCREENING [facility] Test 00:00:00 [code = FALLS RISK Medical C enter SCREENING] Future Scheduled 2022-09-[address] [facility] Test 00:00:00 (12+) [code = Medical Center DEPRESSION SCREENING (12+)] Future Scheduled 2022-09-06 FALLS RISK SCREENING [facility] 00:00:00 [code = FALLS RISK Medical C enter SCREENING] Future Scheduled 2022-05-07 INFLUENZA VACCINE (#1) [facility] 00:00:00 [code = INFLUENZA Medical Ce nter VACCINE (#1)] Future Scheduled 2022-05-07 INFLUENZA VACCINE (#1) [facility] 00:00:00 [code = INFLUENZA Medical Ce nter VACCINE (#1)] Future Scheduled 2022-05-07 INFLUENZA VACCINE (#1) [facility] 00:00:00 [code = INFLUENZA Medical Ce nter VACCINE (#1)] Future Scheduled 2022-05-07 INFLUENZA VACCINE (#1) [facility] 00:00:00 [code = INFLUENZA Medical Ce nter VACCINE (#1)] Future Scheduled 2022-05-07 INFLUENZA VACCINE (#1) [facility] 00:00:00 [code = INFLUENZA Medical Ce nter VACCINE (#1)] Future Scheduled 2021-09-[address] [facility] 00:00:00 (12+) [code = Medical Center DEPRESSION SCREENING (12+)] Future Scheduled 2021-09-06 FALLS RISK SCREENING [facility] 00:00:00 [code = FALLS RISK Medical C enter SCREENING] Future Scheduled 2021-09-[address] [facility] 00:00:00 (12+) [code = Medical Center DEPRESSION SCREENING (12+)] Future Scheduled 2021-09-06 FALLS RISK SCREENING [facility] 00:00:00 [code = FALLS RISK Medical C enter SCREENING] Future Scheduled 2021-03-[address] [facility] Test 00:00:00 Counseling and Medical Cente r Screening (12+) [code = Tobacco Cessation Counseling and Screening (12+)] Future Scheduled 2021-03-[address] [facility] 00:00:00 Counseling and Medical Cente r Screening (12+) [code = Tobacco Cessation Counseling and Screening (12+)] Future Scheduled 2021-03-[address] [facility] Test 00:00:00 Counseling and Medical Cente r Screening (12+) [code = Tobacco Cessation Counseling and Screening (12+)] Future Scheduled 2021-03-[address] [facility] Test 00:00:00 Counseling and Medical Cente r Screening (12+) [code = Tobacco Cessation Counseling and Screening (12+)] Future Scheduled 2021-03-[address] [facility] Test 00:00:00 Counseling and Medical Cente r Screening (12+) [code = Tobacco Cessation Counseling and Screening (12+)] Future Scheduled 2020-09-[address] [facility] [facility] 00:00:00 WELLNESS (YEAR 2 or Medical Center FIRST YEAR if no IPPE) [code = MEDICARE ANNUAL WELLNESS (YEAR 2 or FIRST YEAR if no IPPE)] Future Scheduled 2020-09-[address] [facility] [facility] 00:00:00 WELLNESS (YEAR 2 or Medical Center FIRST YEAR if no IPPE) [code = MEDICARE ANNUAL WELLNESS (YEAR 2 or FIRST YEAR if no IPPE)] Future Scheduled 2020-09-[address] [facility] 00:00:00 WELLNESS (YEAR 2 or Medical Center FIRST YEAR if no IPPE) [code = MEDICARE ANNUAL WELLNESS (YEAR 2 or FIRST YEAR if no IPPE)] Future Scheduled 2020-09-[address] [facility] 00:00:00 WELLNESS (YEAR 2 or Medical Center FIRST YEAR if no IPPE) [code = MEDICARE ANNUAL WELLNESS (YEAR 2 or FIRST YEAR if no IPPE)] Future Scheduled 2020-09-[address] [facility] 00:00:00 WELLNESS (YEAR 2 or [facility] if no IPPE) [code = MEDICARE ANNUAL WELLNESS (YEAR 2 or FIRST YEAR if no IPPE)] Future Scheduled 2015 PNEUMOCOCCAL 65+ YRS ([address] [facility] 00:00:00 - PCV) [code = Medical Cent[facility] r PNEUMOCOCCAL 65+ YRS (1 - PCV)] Future Scheduled 2015 PNEUMOCOCCAL 65+ YRS ([address] [facility] 00:00:00 - PCV) [code = Medical Cent[facility] PNEUMOCOCCAL 65+ YRS (1 - PCV)] Future Scheduled 2015 PNEUMOCOCCAL 65+ YRS ([address] [facility] 00:00:00 - PCV) [code = Medical Cente r PNEUMOCOCCAL 65+ YRS (1 - PCV)] Future Scheduled 2015 PNEUMOCOCCAL 65+ YRS ([address] [facility] 00:00:00 - PCV) [code = Medical Cent[facility] PNEUMOCOCCAL 65+ YRS (1 - PCV)] Future Scheduled 2015 PNEUMOCOCCAL 65+ YRS ([address] [facility] 00:00:00 - PCV) [code = Medical Cente r PNEUMOCOCCAL 65+ YRS (1 - PCV)] Future Scheduled 2000 SHINGLES VACCINES ([address] [facility] 00:00:00 2) [code = SHINGLES Medical Center VACCINES (1 of 2)] Future Scheduled 2000 SHINGLES VACCINES ([address] [facility] 00:00:00 2) [code = SHINGLES Medical Center VACCINES (1 of 2)] Future Scheduled 2000 SHINGLES VACCINES ([address] [facility] 00:00:00 2) [code = SHINGLES Medical Center VACCINES (1 of 2)] Future Scheduled 2000 SHINGLES VACCINES ([address] [facility] 00:00:00 2) [code = SHINGLES Medical Center VACCINES (1 of 2)] Future Scheduled 2000 SHINGLES VACCINES ([address] [facility] 00:00:00 2) [facility] Future Scheduled 1969 DTAP/TDAP/TD [facility]ACCINES [facility] 00:00:00 (1 - Tdap) [code = Medical C enter DTAP/TDAP/TD VACCINES (1 - Tdap)] Future Scheduled 1969 DTAP/TDAP/TD [facility]ACCINES [facility] 00:00:00 (1 - Tdap) [code = Medical C enter DTAP/TDAP/TD VACCINES (1 - Tdap)] Future Scheduled 1969 DTAP/TDAP/TD [facility]ACCINES [facility] 00:00:00 (1 - Tdap) [code = Medical C enter DTAP/TDAP/TD VACCINES (1 - Tdap)] Future Scheduled 1969 DTAP/TDAP/TD [facility]ACCINES [facility] 00:00:00 (1 - Tdap) [code = Medical C enter DTAP/TDAP/TD VACCINES (1 - Tdap)] Future Scheduled 1969 DTAP/TDAP/TD [facility]ACCINES [facility] 00:00:00 (1 - Tdap) [code = Medical C enter DTAP/TDAP/TD VACCINES (1 - Tdap)] Future Scheduled 1968 HEPATITIS C [facility]CREENING [facility] 00:00:00 [code = HEPATITIS C [facility] Center SCREENING] Future Scheduled 1968 HEPATITIS C [facility]ING [facility] 00:00:00 [code = HEPATITIS C Medical Center SCREENING] Future Scheduled 1968 HEPATITIS C [facility]ING [facility] 00:00:00 [code = HEPATITIS C Medical Center SCREENING] Future Scheduled 1968 HEPATITIS C [facility]ING [facility] 00:00:00 [code = HEPATITIS C Medical Center SCREENING] Future Scheduled 1968 HEPATITIS C [facility]ING [facility] 00:00:00 [code = HEPATITIS C Medical Center SCREENING] Future Scheduled 1950 COVID-19 VACCINE (#1[facility] 00:[facility] [code = COVID-[address] VACCINE (#1)] Future Scheduled 1950 COVID-19 VACCINE (#1[facility] 00:00:00 [code = COVID-[address] VACCINE (#1)] Future Scheduled 1950 COVID-19 VACCINE (#1[facility] 00:00:00 [code = COVID-[address] VACCINE (#1)] Future Scheduled 1950 COVID-19 VACCINE (#1) [facility] 00:00:00 [code = COVID-[address] VACCINE (#1)] Future Scheduled 1950 COVID-19 VACCINE (#1) [facility] 00:00:00 [code = COVID-[address] VACCINE (#1)] Future Scheduled 1950 CT Colonography (combo) [facility] 00:00:00 [code = CT Colonography [facility] (combo)] Future Scheduled 1950 Screening for malignant [facility] 00:00:00 neoplasm of colon Medical Ce nter (procedure) [code = [id number]] Future Scheduled 1950 Screening for malignant [facility] 00:00:00 neoplasm of colon Medical Ce [facility]ter (procedure) [code = 404994887] Future Scheduled 1950 Sigmoidoscopy [code = [facility] 00:[facility] Sigmoidoscopy] [facility] Cent[facility] Future Scheduled 1950 CT Colonography (combo) [facility] 00:00:00 [code = CT Colonography [facility] (combo)] Future Scheduled 1950 Screening for malignant [facility] 00:00:00 neoplasm of colon Medical Ce nter (procedure) [code = 608796663] Future Scheduled 1950 Screening for malignant [facility] 00:00:00 neoplasm of colon Medical Ce nter (procedure) [code = 461961244] Future Scheduled 1950 Sigmoidoscopy [code = [facility] 00:[facility] S[facility]oidoscopy] [facility] Cent[facility] Future Scheduled 1950 CT Colonography (combo) [facility] 00:00:00 [code = CT Colonography [facility] (combo)] Future Scheduled 1950 Screening for malignant [facility] 00:00:00 neoplasm of colon Medical Ce nter (procedure) [code = 290324999] Future Scheduled 1950 Screening for malignant [facility] 00:00:00 neoplasm of colon Medical Ce nter (procedure) [code = 107427853] Future Scheduled 1950 Sigmoidoscopy [code = [facility] 00:[facility] Sigmoidoscopy] [facility] Cent[facility] Future Scheduled 1950 CT Colonography (combo) [facility] 00:00:00 [code = CT Colonography [facility] (combo)] Future Scheduled 1950 Screening for malignant [facility] 00:00:00 neoplasm of colon Medical Ce nter (procedure) [code = 225470911] Future Scheduled 1950 Screening for malignant [facility] 00:00:00 neoplasm of colon Medical Ce nter (procedure) [code = 679440622] Future Scheduled 1950 Sigmoidoscopy [code = [facility] 00:[facility] Sigmoidoscopy] [facility] Cent[facility] Future Scheduled 1950 CT Colonography (combo) [facility] 00:00:00 [code = CT Colonography [facility] (combo)] Future Scheduled 1950 Screening for malignant [facility] 00:00:00 neoplasm of colon Medical Ce nter (procedure) [code = 817661733] Future Scheduled 1950 Screening for malignant [facility] 00:00:00 neoplasm of colon Medical Ce nter (procedure) [code = 526726242] Future Scheduled 1950 Sigmoidoscopy [code = [facility] 00:[facility] Sigmoidoscopy] Medical Cente r Encounters Start End Encounter Admission Attending Care Care Encounter Source Date/Time Date/Time Type Type Clinicians Facility Department ID 2021-06-10 Outpatient [facility] [id number] [facility] 21:09:00 CHUNG 2022-02-25 2022-02-25 Outpatient R [facility] [id number] Univers 15:45:00 16:15:32 ZABRINA [facility] 2022-02-25 2022-02-25 Office Maynor [facility]AY[facility] [id number] Univers 15:45:00 16:15:32 Visit Zabrina SIMPSON [id number] [facility] [id number] Yash as JONO?BLEA [id number] Tn brissa [address] MEDICAL OFFICE [facility] 2022-02-11 2022-02-11 [facility] [id number] Univers 08:52:53 23:59:[address] [facility] 2022-02-11 2022-02-11 [facility] [id number] Univers 08:52:53 23:59:00 Encounter Zabrina PRIDE [id number] ity of [place] [id number] [place] [facility] [id number] [facility] [address] 2022-02-11 2022-02-11 Orders Doctor SADAF [id number] Univers 00:00:00 00:00:00 Only Unassigned, DORIS [id number] [facility] [id number] Yash as [id number] [facility] [address] 2022-01-26 2022-01-26 [facility] [id number] Univers 14:35:00 23:59:[address] [facility] 2022-01-26 2022-01-26 Office [facility] [id number] Univers 15:30:00 15:30:00 Visit Zabrina SIMPSON [id number] it y [facility] [id number] Yash as JONO?BLEA [phone] Tn mariohugh AIDAN [address] [place] [address] OFFICE [facility] 2022-01-26 2022-01-26 [facility] [id number] Univers 15:30:00 14:54:29 [facility] 2022-[facility]-26 2022-01-26 Orders Doctor TALAVERA [id number] Univers 00:00:00 00:00:00 Only Unassigned, DORIS [id number] ity of [place] [facility] [id number] Yash as [id number] [address] 2020-11-09 2020-11-09 Outpatient R VICKY [facility] [id number] Univers 10:20:00 10:20:[address] [facility] 2020-10-12 2020-10-12 Outpatient [facility] [id number] Univers 10:20:00 10:20:00 [facility] 2020-03-05 2020-03-05 Outpatient [facility] [id number] SLE 00:00:00 00:00:00 Results Test Description Test Time Test Comments Results Result Comments Source TISSUE EXAM 2020-03-13 Surgical Pathology 10:39:00 Report Case: [id number] Authorizing Provider: Chung Chi MD Collected: 03/07/2020 11:07 AM Ordering Location: [facility] Endoscopy Received: 03/07/2020 02:40 PM Services Pathologist: Elisabeth Abel MD Specimen: Colon Biopsy, Random, BX R/O DYSPLASIA H/O CROHN'S COLON,RANDOM, ENDOSCOPIC BIOPSIES: - NO PATHOLOGIC ALTERATION - NO SIGNIFICANT ARCHITECTURAL DISTORTION SEEN - NO INCREASED CHRONIC INFLAMMATION OR ACTIVITY PRESENT - NO VIRAL INCLUSIONS, MICROSCOPIC COLITIS, DYSPLASIA OR MALIGNANCY PRESENT Signing Pathologist Direct Phone Line: [phone] mane signed by Elisabeth Abel MD on 03/13/2020 at 10:39 [id number] anemiaColon biopsy, randomReceived in formalin labeled with the same patient's information and "random colon biopsy, rule out dysplasia, history of Crohn's" is a 1.3 x 0.4 x 0.2 cm aggregate of brown-bernard irregular shaped fragment of soft tissue that is submitted in toto in cassette (A1). LENCHO/ewPERFORMED SARS-COV2/RT-PCR ([facility]) 2020-03-07 10:08:00 Test Item Value Reference Range Interpretation Comme nts SARS-COV2/RT-PCR (test code = 6409112) Not Detected Not Detected, N egative SARS-COV-2 PERFORMING LAB (test code = [facility] [id number]) Negative results do not preclude SARS-CoV-2 infection and should not be used as the sole basis for patient management decisions. Negative results must be combined with clinical observations, patient history, and epidemiological information. A false negative result may occur if a specimen is improperly collected, transported or handled.The limit of detection for this assay is 250 copies/mL.This SARS CoV-2 test is a rapid, real-time RT-PCR test intended for the qualitative detection of nucleic acid from SARS-CoV-2 in a nasopharyngeal swab specimen collected from individuals suspected of COVID-19 by their healthcare provider.This test has not been Food and Drug Administration (FDA) cleared or approved and has been authorized by FDA under an Emergency Use Authorization (EUA). This EUA will be effective until the declaration that circumstances exist justifying the authorization of the emergency use of in vitro diagnostic tests for detection and/or diagnosis of COVID-19 is terminated under Section 564(b)(2) of the Act or the EUA is revoked under Section 564(g) of the Act.Fact Sheet for Healthcare Pro viders:https://www.[employer]/Documents/Xpert%20Xpress%20SARS%20CoV-2/Fact%20Sh eets/3023802%39HIHH-GTI-7%20HEALTHCARE%20PROVIDERS%20FACT%20SHEET.pdfFact Sheet for Healthcare Patients:https://www.[employer]/Documents/Xpert%20Xpress%20SARS%20CoV-2/Fact%20Sheets/3023801%20SARS-COV -2%20PATIENT%20FACT%20SHEET.pdfPerforming Laboratory:[facility] [place] [address]
[2022-10-28] MEDS ORDERED: NA CHLORIDE 0.9% 1,000 ML ONE (15:59)
[2022-10-28 16:30] LABS: Absolute Lymphocytes (CBC) 0.3 K/uL (0.7-4.9); Hematocrit 32.8 % (39.6-49.0); Lymphocytes % 2.7 % (15.3-44.8); MCV 86.2 fL (80-100); MPV 8.2 fL (7.6-11.3)
[2022-10-28 16:32] LABS: Protime INR 1.14
[2022-10-28 16:49] LABS: Albumin 3.9 g/dL (3.4-5.0); Bilirubin Direct 0.2 mg/dL (0-0.2); Bilirubin Total 0.4 mg/dL (0.2-1.0); Magnesium 2.1 mg/dL (1.6-2.4); Potassium 3.4 mmol/L (3.5-5.1); Protein, Total 7.1 g/dL (6.4-8.2); Troponin High Sensitivity 7.8 pg/mL (<58.9)
--- NOTE | 2022-10-28 16:50 | ER ---
Nurse's Notes [facility] Name: Bart Forrest Age: 72 yrs Sex: Male : 1950 Arrival Date: 10/28/2022 Time: 15:46 Bed 6 Private MD: Diagnosis: Abdominal pain, unspecified;Anemia, unspecified;Postprocedural hemorrhage of skin and subcutaneous tissue following other procedure-umbilical repair Presentation: 10/28 15:46 Chief complaint: Patient states: he had umbilical hernia repair sx this morning with kc6 Dr. Hall. stated he was sitting in his recliner at home eating when he looked down and noticed bleeding at the sight and got light headed and dizzy. Coronavirus screen: Vaccine status: Patient reports receiving the 2nd dose of the covid vaccine. At this time, the client does not indicate any symptoms associated with coronavirus-19. Ebola Screen: No symptoms or risks identified at this time. Initial Sepsis Screen: Does the patient meet any 2 criteria? No. Patient's initial sepsis screen is negative. Does the patient have a suspected source of infection? No. Patient's initial sepsis screen is negative. Risk Assessment: Do you want to hurt yourself or someone else? Patient reports no desire to harm self or others. Onset of symptoms was October 28, 2022. 15:46 Method Of Arrival: EMS: [facility] kc6 15:46 Acuity: ROBERTO 3 kc6 Triage Assessment: 15:48 General: Appears in no apparent distress. comfortable, Behavior is calm, cooperative, kc6 appropriate for age. Pain: Complains of pain in umbilical area Pain does not radiate. Pain currently is 3 out of 10 on a pain scale. Is continuous, Also complains of no other associated symptoms. EENT: No signs and/or symptoms were reported regarding the EENT system. Neuro: Ochoa Agitation-Sedation Scale (RASS): 0 - Alert and Calm Level of Consciousness is awake, alert, obeys commands, Oriented to person, place, time, situation, Appropriate for age. Cardiovascular: Capillary refill < 3 seconds. Respiratory: Airway is patent Trachea midline Respiratory effort is even, unlabored, Respiratory pattern is regular, symmetrical. GI: No signs and/or symptoms were reported involving the gastrointestinal system. : No signs and/or symptoms were reported regarding the genitourinary system. Derm: No signs and/or symptoms reported regarding the dermatologic system. Skin post surgical incision located to the umbilical area. abdominal binder in place with blood noted to the site Skin is dry, Skin is pale, Skin temperature is warm. Musculoskeletal: No signs and/or symptoms reported regarding the musculoskeletal system. Circulation, motion, and sensation intact. Capillary refill < 3 seconds, Range of motion: intact in all extremities. Historical: - Allergies: 15:48 larium; kc6 15:48 Novfmnj-GLZ-JcV Reductase Inhibitors; kc6 - PMHx: 15:48 Atrial Fib; Hyperlipidemia; Hypertension; allergies; kc6 - Immunization history:: Client reports receiving the 2nd dose of the Covid vaccine, Flu vaccine is up to date. - Social history:: Smoking status: Patient denies any tobacco usage or history of. - Family history:: not pertinent. Screenin:52 [facility] ED Fall Risk Assessment (Adult) History of falling in the last 3 months, kc6 including since admission No falls in past 3 months (0 pts) Confusion or Disorientation No (0 pts) Intoxicated or Sedated No (0 pts) Impaired Gait No (0 pts) Mobility Assist Device Used No (0 pt) Altered Elimination No (0 pt) Score/Fall Risk Level 0 - 2 = Low Risk Oriented to surroundings, Maintained a safe environment, Educated pt \T\ family on fall prevention, incl call for assistance when getting out of bed, Assessed \T\ reinforced patient's understanding of fall precautions, Hourly rounding (assess needs \T\ fall precautionary measures) done. Abuse screen: Denies threats or abuse. Denies injuries from another. Nutritional screening: No deficits noted. Tuberculosis screening: No symptoms or risk factors identified. Assessment: 15:46 Reassessment: please see triage assessment. 6 16:04 Reassessment: pt transported to CT via stretcher with nurse. vg1 Vital Signs: 15:46 BP 110 / 58; Pulse 73; Resp 16 S; Pulse Ox 93% on R/A; Weight 83.01 kg (R); Height 5 kc6 ft. 9 in. (175.26 cm) (R); Pain 3/10; 15:46 Body Mass Index 27.02 (83.01 kg, 175.26 cm) kc6 ED Course: 15:46 Patient arrived in ED. 6 15:46 Michael Enriquez MD is Attending Physician. david 15:48 Triage completed. kc6 15:48 Arm band placed on. kc6 15:52 Kiersten Mai RN is Primary Nurse. kc6 15:52 Patient has correct armband on for positive identification. Bed in low position. Call kc6 light in reach. Side rails up X2. Adult w/ patient. 15:53 Maintain EMS IV. Dressing intact. Good blood return noted. Site clean \T\ dry. Gauge \T\ santino 6 site: 20G L Hand. 15:58 Troponin HS Sent. jl7 15:58 PT-INR Sent. jl7 15:58 NT PRO-BNP Sent. jl7 15:58 Magnesium Sent. jl7 15:58 LFT's Sent. jl7 15:58 CBC with Diff Sent. jl7 15:58 Basic Metabolic Panel Sent. jl7 15:58 Type And Screen Sent. jl7 16:02 Inserted saline lock: 20 gauge in left antecubital area, using aseptic technique. kc6 ,using aseptic technique. inserted by Deisy Arredondo RN Blood collected. 16:47 Ayo Hall MD is Hospitalizing Provider. david 17:05 SARS RAPID Sent. kc6 17:06 No provider procedures requiring assistance completed. Patient admitted, IV remains in kc6 place. Administered Medications: 15:55 Drug: NS 0.9% 1000 ml Route: IV; Rate: 1 bolus; Site: left antecubital; kc6 17:06 Follow up: Response: No adverse reaction; IV Status: Completed infusion; IV Intake: kc6 1000ml 17:05 Not Given (Physician Discretion): Ancef (cefazolin) 1 grams IVPB once kc6 17:05 Not Given (Physician Discretion): Pepcid (famotidine) 20 mg IVP once; dilute with 10 mL kc6 0.9% NaCl; give over 2 minutes Medication: 17:06 VIS not applicable for this client. kc6 Intake: 17:06 IV: 1000ml; Total: 1000ml. [facility] Outcome: 16:49 Decision to Hospitalize by Provider[facility] 17:06 Admitted to OR accompanied by nurse, via stretcher, with chart, Report called to [facility] SON [place] 17:06 Condition: stable 17:06 Instructed on the need for admit. 17:07 Patient left the ED. [facility] Signatures: Michael Enriquez MD MD cha Leal, Jahala, RN RN jl7 Randi Rosario, RN RN vg1 Kiersten Mai RN RN kc6
--- NOTE | 2022-10-28 16:50 | EDPHYS ---
Physician Documentation [facility] Name: Bart Forrest Age: 72 yrs Sex: Male : 1950 Arrival Date: 10/28/2022 Time: 15:46 Bed 6 Private MD: ED Physician Michael Enriquez HPI: 10/28 16:41 This 72 yrs old Male presents to ER via EMS with complaints of Post Surgical david Bleeding. 16:41 The patient presents with abdominal pain abdominal distention in the upper abdomen, in david the lower abdomen. Onset: The symptoms/episode began/occurred just prior to arrival. The patient was previously evaluated in the emergency department HAD UMBILICAL HERNIA SURGERY NOT TODAY. Present symptoms: abdominal pain, has improved, mildly. Associated signs and symptoms: Pertinent positives: WOUND BLEEDING. Modifying factors: The symptoms are alleviated by remaining still, the symptoms are aggravated by movement, pressure, walking. Historical: - Allergies: 15:48 larium; kc6 15:48 Fouwxix-IUC-QvM Reductase Inhibitors; kc6 - PMHx: 15:48 Atrial Fib; Hyperlipidemia; Hypertension; allergies; kc6 - Immunization history:: Client reports receiving the 2nd dose of the Covid vaccine, Flu vaccine is up to date. - Social history:: Smoking status: Patient denies any tobacco usage or history of. - Family history:: not pertinent. ROS: 16:41 Constitutional: Negative for fever, chills, and weight loss, Eyes: Negative for injury, david pain, redness, and discharge, ENT: Negative for injury, pain, and discharge, Neck: Negative for injury, pain, and swelling, Cardiovascular: Negative for chest pain, palpitations, and edema, Respiratory: Negative for shortness of breath, cough, wheezing, and pleuritic chest pain, Back: Negative for injury and pain, : Negative for injury, bleeding, discharge, and swelling, MS/Extremity: Negative for injury and deformity, Neuro: Negative for headache, weakness, numbness, tingling, and seizure, Psych: Negative for depression, anxiety, suicide ideation, homicidal ideation, and hallucinations, Allergy/Immunology: Negative for hives, rash, and allergies, Endocrine: Negative for neck swelling, polydipsia, polyuria, polyphagia, and marked weight changes, Hematologic/Lymphatic: Negative for swollen nodes, abnormal bleeding, and unusual bruising. 16:41 Abdomen/GI: Positive for abdominal pain, abdominal cramps, of the umbilical area. Exam: 16:41 Constitutional: This is a well developed, well nourished patient who is awake, alert, david and in no acute distress. Head/Face: Normocephalic, atraumatic. Eyes: Pupils equal round and reactive to light, extra-ocular motions intact. Lids and lashes normal. Conjunctiva and sclera are non-icteric and not injected. Cornea within normal limits. Periorbital areas with no swelling, redness, or edema. ENT: Nares patent. No nasal discharge, no septal abnormalities noted. Tympanic membranes are normal and external auditory canals are clear. Oropharynx with no redness, swelling, or masses, exudates, or evidence of obstruction, uvula midline. Mucous membranes moist. Neck: Trachea midline, no thyromegaly or masses palpated, and no cervical lymphadenopathy. Supple, full range of motion without nuchal rigidity, or vertebral point tenderness. No Meningismus. Chest/axilla: Normal chest wall appearance and motion. Nontender with no deformity. No lesions are appreciated. Cardiovascular: Regular rate and rhythm with a normal S1 and S2. No gallops, murmurs, or rubs. Normal PMI, no JVD. No pulse deficits. Respiratory: Lungs have equal breath sounds bilaterally, clear to auscultation and percussion. No rales, rhonchi or wheezes noted. No increased work of breathing, no retractions or nasal flaring. Back: No spinal tenderness. No costovertebral tenderness. Full range of motion. Male : Normal genitalia with no discharge or lesions. MS/ Extremity: Pulses equal, no cyanosis. Neurovascular intact. Full, normal range of motion. Neuro: Awake and alert, GCS 15, oriented to person, place, time, and situation. Cranial nerves II-XII grossly intact. Motor strength 5/5 in all extremities. Sensory grossly intact. Cerebellar exam normal. Normal gait. Psych: Awake, alert, with orientation to person, place and time. Behavior, mood, and affect are within normal limits. 16:41 ECG was reviewed by the Attending Physician. 16:41 Abdomen/GI: Inspection: abdomen appears normal, Bowel sounds: normal, Palpation: moderate abdominal tenderness, in the umbilical area, right lower quadrant and left lower quadrant, BLEEDING ON DRESSINGS. Vital Signs: 15:46 BP 110 / 58; Pulse 73; Resp 16 S; Pulse Ox 93% on R/A; Weight 83.01 kg (R); Height 5 kc6 ft. 9 in. (175.26 cm) (R); Pain 3/10; 15:46 Body Mass Index 27.02 (83.01 kg, 175.26 cm) kc6 MDM: 15:46 Patient medically screened. david 16:45 Differential diagnosis: bowel obstruction, diverticulitis, gastritis, non-specific abd david pain, Peritonitis, bowel obstruction, non-specific abd pain, pancreatitis. Data reviewed: vital signs, nurses notes, lab test result(s), EKG, radiologic studies, CT scan. Consideration of Admission/Observation Patient was admitted/placed on observation. Escalation of care including admission/observation considered. I considered the following discharge prescriptions or medication management in the emergency department Medications were administered in the Emergency Department. See MAR. Test considered but Not performed: Ultrasound NO fast. Historians other than the Patient: Spouse/Significant Other: . Care significantly affected by the following chronic conditions: Hypertension, a fib, hyperlipidemia. 10/28 15:52 Order name: Basic Metabolic Panel [facility] 10/28 15:52 Order name: CBC with Diff [facility] 10/28 15:52 Order name: LFT's david 10/28 15:52 Order name: Magnesium [facility] 10/28 15:52 Order name: NT PRO-BNP david 10/28 15:52 Order name: PT-INR [facility] 10/28 15:52 Order name: Troponin HS [facility] 10/28 15:52 Order name: Type And Screen [facility] 10/28 16:32 Order name: Protime (+INR); Complete Time: 16:39 [facility] 10/28 16:35 Order name: CBC with Automated Diff [facility] 10/28 16:49 Order name: Basic Metabolic Panel; Complete Time: 16:54 EDMS 10/28 16:49 Order name: Liver (Hepatic) Function; Complete Time: 16:54 [facility]OR 10/28 16:49 Order name: Troponin High Sensitivity; Complete Time: 16:54 [facility]OR 10/28 16:49 Order name: NT PRO-BNP; Complete Time: 16:54 [facility]OR 10/28 15:52 Order name: XRAY Chest (1 view) [facility] 10/28 15:52 Order name: EKG; Complete Time: 15:53 [facility] 10/28 15:52 Order name: Cardiac monitoring; Complete Time: 15:53 [facility] 10/28 15:52 Order name: EKG - Nurse/Tech; Complete Time: 16:24 [facility] 10/28 15:52 Order name: IV Saline Lock; Complete Time: 15:53 [facility] 10/28 15:52 Order name: Labs collected and sent; Complete Time: 15:58 [facility] 10/28 15:52 Order name: O2 Per Protocol; Complete Time: 15:53 [facility] 10/28 15:52 Order name: CT Abd/Pelvis - IV Contrast Only [facility] 10/28 16:49 Order name: Magnesium; Complete Time: 16:54 EDMS 10/28 16:52 Order name: SARS RAPID em1 10/28 16:59 Order name: CT EDMS 10/28 16:59 Order name: RAD EDMS 10/28 17:05 Order name: Type and Screen [facility] 10/28 15:52 Order name: O2 Sat Monitoring; Complete Time: 15:53 [facility] 10/28 15:52 Order name: NPO; Complete Time: 15:53 [facility] 10/28 15:52 Order name: Urine Dipstick-Ancillary (obtain specimen) [facility] EC:41 Rate is 62 beats/min. Rhythm is regular. QRS [place] is Normal. VT interval is normal. QRS david interval is normal. QT interval is normal. No Q waves. T waves are Normal. No ST changes noted. Clinical impression: NSR w/ Non-specific ST/T Changes and No evidence of ischemia. Interpreted by me. Reviewed by me. Administered Medications: 15:55 Drug: NS 0.9% 1000 ml Route: IV; Rate: 1 bolus; Site: left antecubital; kc6 17:06 Follow up: Response: No adverse reaction; IV Status: Completed infusion; IV Intake: kc6 1000ml 17:05 Not Given (Physician Discretion): Ancef (cefazolin) 1 grams IVPB once kc6 17:05 Not Given (Physician Discretion): Pepcid (famotidine) 20 mg IVP once; dilute with 10 mL kc6 0.9% NaCl; give over 2 minutes Disposition Summary: 10/28/22 16:49 Hospitalization Ordered Hospitalization Status: Observation david Provider: Ayo Hall cha Location: Operating Room david Condition: Stable david Problem: new david Symptoms: have improved david Bed/Room Type: Standard [facility] Room Assignment: david Diagnosis - Abdominal pain, unspecified david - Anemia, unspecified david - Postprocedural hemorrhage of skin and subcutaneous tissue following other procedure david - umbilical repair Discharge Instructions: - Discharge Summary Sheet em1 Forms: - Medication Reconciliation Form david - SBAR form em1 Signatures: Dispatcher [employer] Michael Bundy MD MD cha Campbell, Kaitlyn RN RN kc6
--- NOTE | 2022-10-28 16:57 | RAD REPORT ---
EXAM DESCRIPTION: CT - Abdomen Pelvis W Contrast - 10/28/2022 4:16 pm CLINICAL HISTORY: Status post umbilical hernia repair today. Leading COMPARISON: None. TECHNIQUE: Biphasic, helical CT imaging of the abdomen and pelvis was performed following intravenou s administration of 95 mL Isovue-300. Multiplanar reformats were generated and reviewed. All CT scans are performed using dose optimization technique as appropriate and may include automated exposure control or mA/KV adjustment according to patient size. FINDINGS: Subsegmental dependent right lung atelectasis. The liver, spleen, and pancreas show no suspicious findings. Incidentally noted hepatic segment 5 carrie ght fluid density 1.2 centimeter cyst. Gallbladder and biliary tree are also without suspicious findi ng. Symmetric renal function is seen with no hydronephrosis or suspicious renal mass. Postsurgical changes are noted along the anterior abdominal wall, with mesh tacks underlying the umbi lical region. Mild thickening and soft tissue gas locules along the left anterior abdominal wall musc ulature. Minimal fat stranding along the omentum in the left upper quadrant likely related to recent surgical intervention as well. No dilated bowel loops or bowel wall thickening. Mild colonic diverticulosis. Minimal amounts of free air anteriorly, likely related to recent surgery. Small volume free fluid along the right lower quad rant and the pelvis, as well as trace perihepatic fluid. The fluid shows density slightly above that of simple fluid, approximately 30 Hounsfield units. Small amount fluid tracks along a small left ingu inal hernia. A small right fat containing inguinal hernia is also present. No suspicious masses or ad enopathy. The urinary bladder is without significant finding. No suspicious bony findings. Mild lumbar spine degenerative changes. IMPRESSION: Recent postsurgical changes as above. Small volume free fluid along the right lower quadrant, pelvis, and right perihepatic region. The flu id is mildly complex, raising concern for a component of bleeding, although no definite source of ble eding can be identified. Incidental findings, as above.
--- NOTE | 2022-10-28 16:58 | RAD REPORT ---
EXAM DESCRIPTION: RADChest Single View10/28/2022 4:43 pm CLINICAL HISTORY: COUGH COMPARISON: Chest Single View dated 10/28/2022 TECHNIQUE: Portable AP view of the chest. FINDINGS: The lungs are clear.Mild bibasilar atelectatic changes. Decreased inspiratory effort limit s evaluation. No pneumothorax or effusion. The cardiomediastinal contours are unremarkable. IMPRESSION: No acute cardiopulmonary process.
--- NOTE | 2022-10-28 17:03 | P.HP ---
Date of Service: 10/28/22 Chief complaint: Bleeding from umbilical wound History of present Illness: Patient is a 72-year-old gentleman who had a laparoscopic assisted repair of umbilical hernia earlier today. Patient went home and was doing well. When he sat up to eat lunch he noticed blood inferiorly from his abdominal binder. He had to change the dressing twice. He called my office and was advised to come to the office immediately. Upon arrival to the office, the patient appeared pale. Initial blood pressure was 74 systolic and heart rate was in the 40s his respiratory rate was 20 and O2 sat was 94%. On exam, umbilical dressing was saturated with blood. The dressing was removed and the wound had venous blood oozing from the umbilicus. Pressure dressing was applied. Patient at this point felt dizzy and stated that he was going to pass out. 911 was called. Oxygen was supplemented to the patient. Patient remained awake and alert while EMS arrived. Patient was immediately taken to the emergency room awake, alert and oriented x3. His vitals were stable with systolic greater than 100 and diastolic in the low 60s with a heart rate in the low 60s. Upon evaluation in the ER, patient was awake and alert in no distress. His vitals remained stable. H&H was 11.1 and 32.8essentially the same as the preop value. Patient had a CT of the abdomen pelvis done. There was small amount of blood noted on the right side of the abdomen going towards the pelvis. At this point, my concern is that patient is having some venous bleeding or oozing intraperitoneally. Therefore, patient will be taken to the OR for diagnostic laparoscopy. Review of systems: Otherwise unremarkable Past medical history: Hypertension, A-fib, hypercholesterolemia Past surgical history: As per HPI Allergies: Lariam Social history: Patient does not smoke or drink Family history: Noncontributory Vital signs: Stable, afebrile Physical exam: Awake, alert oriented x3 HEENT: Pale sclera. No masses. No JVD. Throat clear. Neck supple. Chest: Clear Heart: S1-S2 Abdomen: Soft, nondistended, nontender, positive bowel sounds. No further bleeding at the umbilicus after pressure dressing was applied. Extremity: Neurovascular intact, nontender Neuro: Nonfocal Diagnostic data: As per HPI Assessment: Status post umbilical hernia repair with intraperitoneal bleeding and recent history of hypotension Plan/recommendation: Diagnostic laparoscopy, possible open. Patient understands risks, benefits and alternatives and agrees to procedure. CC:
[2022-10-28] MEDS ORDERED: propofoL 200 MG/20 ML VIAL IV ONE (17:10)
[2022-10-28] MEDS ORDERED: LIDOCAINE 2% MPF 5 ML VIAL ONE (17:10)
[2022-10-28] MEDS ORDERED: ROCURONIUM 50 MG/5 ML VIAL IV ONE (17:11)
[2022-10-28] MEDS ORDERED: Phenylephrine HCl 10 MG/ML 1 ML VIAL ONE (17:11)
[2022-10-28 17:12] LABS: Blood Morphology Comment NOT SEEN (NOT SEEN); Platelet Estimate ADEQ
[2022-10-28] MEDS ORDERED: Ringers Lactate 1,000 ML IV ONE ×3 (17:16→19:55)
[2022-10-28] MEDS ORDERED: SUCCINYLCHOLINE 20 MG/ML (10 ML) IV ONE (17:18)
[2022-10-28 17:20] LABS: SARS-CoV-2 Antigen Rapid Res Negative (Negative)
[2022-10-28] MEDS: CEFAZOLIN SODIUM 1 GM/VIAL ONE ×2 (17:30→17:56)
[2022-10-28] MEDS ORDERED: GLYCOPYRROLATE 0.2 MG/ML SYR ONE ×2 (17:40→18:01)
[2022-10-28] MEDS ORDERED: FENTANYL CITR 100 MCG/2 ML ONE (17:55)
[2022-10-28] MEDS ORDERED: ONDANSETRON 4 MG/2 ML VIAL ONE (17:59)
[2022-10-28] MEDS ORDERED: KETOROLAC 30 MG/ML INJ ONE (17:59)
[2022-10-28] MEDS: CEFAZOLIN 1 GM in NA CHLORIDE 0.9% 50 ML IVPB SCH (18:15)
[2022-10-28] MEDS ORDERED: SUGAMMADEX SODIUM 200 MG/2 ML VIAL IV ONE (18:18)
--- NOTE | 2022-10-28 18:24 | P.OP ---
Date of Service: 10/28/22 Preop diagnosis: Status post laparoscopic assisted umbilical hernia repair, abdominal bleeding Postop diagnosis: Same Procedure performed: Diagnostic laparoscopy, evacuation of intraperitoneal blood Surgeon: Ayo Hall MD Barn Hand: Amaris GARSIA Estimated blood loss: Minimal Specimen: None Findings: No active source of bleeding identified Anesthesia: General Complications: None Drains: MATT #10 flat Fluids and blood products: Nonapplicable Disposition: Recovery room Operative note: Patient brought to the OR and placed in supine position. General anesthesia begun. Patient prepped and draped in usual sterile fashion. Marcaine 0.5% right locally. 15 blade used to open up the left upper quadrant wound. Sutures removed. Peritoneal cavity entered with sharp and blunt dissection after #1 Vicryl stay sutures were placed. Collar trocar placed into the peritoneal cavity under direct vision. Two 5 mm trocars placed 1 in the left lower quadrant and 1 in the suprapubic region. Laparoscopy revealed old blood clot in the top of the omentum very minimal in nature and some old blood in the pelvis and the right side of the abdomen which were aspirated all trocar sites and hernia repair site were carefully examined there was no evidence of any active bleeding through examination thorough examination of all areas did not reveal any source of active bleeding at this point as patient was stable his H&H is essentially stable since preop we decided to place a drain in the right lower quadrant and pelvis. This was done and secured with 3-0 nylon. All trocars were removed under direct vision and there was no evidence of bleeding noted from the trocar site. Stay sutures were tied to each other in the left upper quadrant to reapproximate the fascial defect. Subcutaneous wound irrigated umbilical wound was opened and examined carefully there was no evidence of active bleeding noted. Subsequently all wounds were irrigated bleeding controlled cautery and then 3-0 chromic used to approximate subcutaneous tissue and close skin. Patient awakened and taken to recovery room in good general condition. CC: Dr. Townsend's office
[2022-10-28] MEDS ORDERED: ONDANSETRON 4 MG/2 ML VIAL IV PRN ×2 (18:26)
[2022-10-28] MEDS ORDERED: NEOSTIGMINE 1 MG/ML -10 ML VIAL ONE (18:37)
[2022-10-28] MEDS ORDERED: ACETAMINOPHEN 325 MG TABLET PO PRN (18:54)
[2022-10-28] MEDS ORDERED: Ringers Lactate 1,000 ML IV SCH (19:00)
[2022-10-28 19:54] LABS: Hematocrit 30.2 % (39.6-49.0)
[2022-10-28] MEDS: NS KCL 20MEQ 20 MEQ/1,000 ML BAG IV SCH (20:39)
[2022-10-28] MEDS: FAMOTIDINE 20 MG/2 ML VIAL IV SCH (20:40)
[2022-10-28] MEDS: HYDROMORPHONE HCL 1 MG/ML INJ IV PRN (20:40)
[2022-10-29] MEDS: CEFAZOLIN 1 GM in NA CHLORIDE 0.9% 50 ML IVPB SCH ×5 (00:37→23:05)
[2022-10-29 01:14] LABS: Hematocrit 28.4 % (39.6-49.0)
[2022-10-29 02:50] VITALS: BMI 27.1
[2022-10-29 04:20] LABS: Absolute Lymphocytes (CBC) 0.5 K/uL (0.7-4.9); Hematocrit 28.5 % (39.6-49.0); Lymphocytes % 5.6 % (15.3-44.8); MCV 86.6 fL (80-100); MPV 8.1 fL (7.6-11.3); RBC Red Blood Cell Count 3.29 M/uL (4.33-5.43)
[2022-10-29 04:32] LABS: Albumin 3.3 g/dL (3.4-5.0); Bilirubin Direct 0.2 mg/dL (0-0.2); Bilirubin Total 0.3 mg/dL (0.2-1.0); Potassium 4.1 mmol/L (3.5-5.1); Protein, Total 6.3 g/dL (6.4-8.2)
[2022-10-29] MEDS: HYDROMORPHONE HCL 1 MG/ML INJ IV PRN ×2 (04:39→11:36)
[2022-10-29] MEDS: NS KCL 20MEQ 20 MEQ/1,000 ML BAG IV SCH ×3 (04:39→17:22)
[2022-10-29] MEDS ORDERED: PNEUMOCOCCAL VACCINE 0.5 ML IMVAC ONE (08:00)
[2022-10-29] MEDS: FAMOTIDINE 20 MG/2 ML VIAL IV SCH (09:29)
[2022-10-29] MEDS: FE SULF/FA/VIT B COMP & C TAB PO SCH (10:00)
[2022-10-29] MEDS: FOLIC ACID 1 MG TABLET PO SCH (10:00)
[2022-10-29] MEDS: PANTOPRAZOLE 40MG TABLET PO SCH (10:00)
[2022-10-29] MEDS: METOPROLOL TAR 25 MG TAB PO SCH ×2 (10:00→20:40)
[2022-10-29] MEDS: FLUTICASONE 50MCG NASAL SPRAY NAS SCH (10:00)
[2022-10-29] MEDS: FEXOFENADINE 180 MG TAB PO SCH (10:00)
[2022-10-29] MEDS: FENOFIBRATE 160 MG TAB PO SCH (11:36)
[2022-10-29] MEDS: DOCUSATE NA 100 MG CAP PO SCH (11:36)
--- NOTE | 2022-10-29 12:11 | DS ---
Date of Discharge: 10/29/2022 Admitting Diagnosis: Abdominal bleeding. Discharge Diagnosis: Hemoperitoneum. Procedures Performed: Diagnostic laparoscopy. Hospital Course: The patient is a 72-year-old gentleman, who underwent an uneventful laparoscopic-as sisted umbilical hernia repair. After he went home, he noticed some bleeding from 1 of the wounds, c doris to the office, was hypotensive and bradycardic, and the patient was feeling very ill at that time when the dressing was being taken off. He remained hypertensive for a few minutes; however, he did feel better after a few minutes, but given his condition, we called on 911 and got an ambulance to [facility] office and transferred him to the emergency room where a workup was done, which showed a small amou nt of hemoperitoneum and the patient had a vasovagal response earlier, wanted to do a diagnostic lapa roscopy to make sure there was no active bleeding and there was approximately 100-200 cc of blood in the peritoneal cavity, mostly old clots and old blood. There was no evidence of any active bleeding noted. A drain was placed and the patient was admitted for overnight for observation. He did have d ifficulty urinating and a bladder scan revealed 600 cc of urine and Black was placed. The patient fe els much better and tolerating diet, ambulating, pain controlled on p.o. pain medications, afebrile, and H and H have been stable hovering between 9.1 and 9.5, therefore the patient will be discharged t o home. Disposition: Home. Condition: Stable. Discharge Instructions: Resume home medications and diet. Hold the blood thinners till I see him in the office and remove the drain and Hemocyte Plus, Keflex and Colace have been called in to the patient's pharmacy. /MODL Voice ID: [id number] Report ID: [id number]
--- NOTE | 2022-10-29 16:31 | EKG ---
Test Date: 2022-10-28 Test Time: 16:30:18 Skip Load Driver: [place] MEASUREMENT RESULTS: Intervals: Rate: 62 [place]: 148 QRSD: 98 QT: 442 QTc: 448 [place]: P: 54 [place]: 148 QRS: 55 T: 31 INTERPRETIVE STATEMENTS: Normal sinus rhythm Normal ECG Compared to ECG 10/28/2022 07:29:37 Sinus bradycardia no longer present Electronically Signed On 10-29-22 16:29:15 PSYCHIATRY INSTRUCTOR by Dewey Bond
[2022-10-29] MEDS: HYDROCODONE/APAP 7.5/325 MG TAB PO PRN ×2 (17:23→22:56)
[2022-10-29] MEDS ORDERED: DIGOXIN 0.25 MG/ML AMP IV ONE (22:19)
--- NOTE | 2022-10-29 23:37 | P.CNS ---
Date of Consult: 10/29/22 Reason for Consult: Afib RVR Requesting Physician: Ayo Hall Primary Care Provider: Cary History of Present Illness: Patient is a 72-year-old male with past medical history of hypertension, atrial fibrillation, and crohns disease who underwent laparoscopic assisted repair of umbilical hernia yesterday. After going home, he was bleeding inferiorly from his abdominal binder, became hypotensive, and was taken back to the OR for diagn ostic laparoscopy, evacuation of intraperitoneal blood. No active source of bleeding was identified. Hemoglobin has gone from 11.1 to 8.2 in 24 hours after both operations. This evening, I was contacted because patient went into afib RVR, rate in the 130s-140s. Patient asymptomatic. RN gave him home metoprolol dose, which did not help. He is prescribed xarelto, last taken Wednesday evening. I ordered patient 0.5 IV digoxin which did not convert him. Patient states he believes he goes into afib RVR at least once a week but typically converts quickly on his own. States that he has never had to have any medical intervention. Allergies Aakgyed-[id number] Reductase Inhibitor Allergy (Verified 10/28/22 19:36) SEVERE MUSCLE WEAKNESS larium Allergy (Uncoded 10/28/22 19:36) MIGRAINE, HEADACHE Home medications list reviewed: Yes Home Medications: Balsalazide Disodium 750 mg PO DAILY 10/28/22 Fenofibrate [Tricor*] 145 mg PO DAILY 10/28/22 Fexofenadine HCl [Christi Allergy] 180 mg PO DAILY 10/28/22 Fluticasone Propionate [Flonase Allergy Relief] 1 ml DAILY 10/28/22 Folic Acid 1 mg PO DAILY 10/28/22 Hydrocortisone [Procto-Med Hc] 1 refugio TOP DAILY 10/28/22 Metoprolol Tartrate 25 mg PO DAILY 10/28/22 Mupirocin Oint [Bactroban 2% Ointment*] 1 appl TOP DAILY 10/28/22 Pantoprazole [Protonix Tab*] 40 mg PO DAILY 10/28/22 Rivaroxaban [Xarelto] 20 mg PO DAILY 10/28/22 - Past Medical/Surgical History Diabetic: No -: afib -: htn -: crohns -: abdominal hernia -: right foot sx x2 -: cataract -: wisdom teeth -: sinus sx - Family History Father Medical History: Heart disease, Hypertension, Kidney disease Mother Medical History: Hypertension, Diabetes - Social History Smoking Status: Never smoker Alcohol use: No CD- Drugs: No Caffeine use: Yes Place of Residence: Home Review of Systems Unremarkable Physical Examination Temp Pulse Resp BP Pulse Ox 97.5 F 131 H 17 146/65 H 93 10/29/22 20:00 10/29/22 20:40 10/29/22 20:00 10/29/22 20:40 10/29/22 20:00 General: Alert, In no apparent distress HEENT: Atraumatic, Normocephalic Neck: Supple, 2+ carotid pulse no bruit Respiratory: Clear to auscultation bilaterally, Normal air movement Cardiovascular: Irregular heart rate/rhythm (afib RVR) Gastrointestinal: Normal bowel sounds, Soft and benign Musculoskeletal: No clubbing Integumentary: No rashes, No ulcers Neurological: Normal speech, Normal affect - Problems (1) Atrial fibrillation with rapid ventricular response Current Visit: Yes Status: Acute Conclusions/Impression: Patient did not convert after 0.5 digoxin. Will give patient 500 cc bolus and IV metoprolol to try and convert him, repeat as necessary then proceed from there. He has no complaints of chest pain, palpitations, or shortness of breath. In terms of anticoagulation, patient last took his xarelto on Wednesday evening. I will hold off on restarting it given the bleeding complications with his recent procedures. Cardiology has been consulted regarding patient's care. Physician Review: Patient Assessed, Agree with Above Assessment and Plan Critical Care: No Time Spent Managing Pts care (In Minutes): 30
[2022-10-29] MEDS ORDERED: NA CHLORIDE 0.9% 250 ML ONE ×2 (23:38→23:47)
[2022-10-29] MEDS ORDERED: NA CHLORIDE 0.9% 500 ML IV ONE (23:39)
[2022-10-29] MEDS ORDERED: METOPROLOL TARTRATE 5 MG/5 ML INJ IV STA (23:52)
[2022-10-30] MEDS ORDERED: ALBUMIN HUMAN 25% 100 ML IV ONE (00:55)
[2022-10-30] MEDS: HYDROMORPHONE HCL 1 MG/ML INJ IV PRN (02:26)
[2022-10-30] MEDS: NS KCL 20MEQ 20 MEQ/1,000 ML BAG IV SCH ×2 (02:31→10:26)
[2022-10-30] MEDS: CEFAZOLIN 1 GM in NA CHLORIDE 0.9% 50 ML IVPB SCH ×4 (06:02→23:24)
[2022-10-30] MEDS: FE SULF/FA/VIT B COMP & C TAB PO SCH (08:00)
[2022-10-30] MEDS: FLUTICASONE 50MCG NASAL SPRAY NAS SCH (09:00)
[2022-10-30] MEDS: METOPROLOL TAR 25 MG TAB PO SCH ×2 (09:00→18:31)
[2022-10-30 09:27] LABS: Hematocrit 27.3 % (39.6-49.0)
--- NOTE | 2022-10-30 10:25 | P.PN ---
Date of Service: 10/30/22 Subjective: Patient was supposed to be discharged yesterday afternoon. However, patient felt a little weak and wanted to spend another night in the hospital. His H&H and vitals were stable at that time. Later in the evening however patient went into A-fib with RVR and hypotension. The hospitalist service was consulted. Patient was given fluids and digoxin. Patient responded well and is in sinus rhythm now. Patient still has a Black in place. We are awaiting the cardiology consult at this time. Patient feels better. Objective: Vital signs, stable afebrile. H&H is 9.2 and 27 this morning. MATT put out 60 cc of serosanguineous fluid Abdomen: Soft, nondistended, nontender, positive bowel sounds. Dressing is clean dry and intact Assessment: Status post diagnostic laparoscopy Plan: Continue current management. Follow-up from the hospitalist service. Await cardiology consult. We will DC the Black at midnight. Hopefully, patient can be discharged in the morning. CC:
[2022-10-30] MEDS: HYDROCODONE/APAP 7.5/325 MG TAB PO PRN ×2 (11:00→23:25)
[2022-10-30] MEDS: FOLIC ACID 1 MG TABLET PO SCH (11:00)
[2022-10-30] MEDS: FENOFIBRATE 160 MG TAB PO SCH (11:00)
[2022-10-30] MEDS: DOCUSATE NA 100 MG CAP PO SCH (11:01)
[2022-10-30] MEDS: FEXOFENADINE 180 MG TAB PO SCH (11:01)
[2022-10-30] MEDS: PANTOPRAZOLE 40MG TABLET PO SCH (11:03)
[2022-10-30] MEDS: MORPHINE 2 MG/ML SYR IV PRN ×2 (13:08→18:32)
--- NOTE | 2022-10-30 13:21 | EKG ---
Test Date: 2022-10-30 Test Time: 02:37:06 Soap Tender: MERVIN MEASUREMENT RESULTS: Intervals: Rate: 78 NC: 134 QRSD: 98 QT: 344 QTc: 392 [place]: P: 67 NC: 134 QRS: 51 T: -16 INTERPRETIVE STATEMENTS: Normal sinus rhythm T wave abnormality, consider inferior ischemia Abnormal ECG Compared to ECG 10/29/2022 22:01:28 T-wave abnormality now present Atrial fibrillation no longer present ST (T wave) deviation no longer present Possible ischemia still present Electronically Signed On 10-30-22 13:18:46 MOOSE HUNTER by Dewey Bond
--- NOTE | 2022-10-30 13:21 | EKG ---
Test Date: 2022-10-29 Test Time: 22:01:28 Hostel Parent: MERVIN MEASUREMENT RESULTS: Intervals: Rate: 144 WI: QRSD: 90 QT: 294 QTc: 455 Bazine: P: WI: QRS: 54 T: -74 INTERPRETIVE STATEMENTS: Atrial fibrillation with rapid ventricular response ST & T wave abnormality, consider inferior ischemia or digitalis effect Abnormal ECG Compared to ECG 10/28/2022 16:30:18 ST (T wave) deviation now present Possible ischemia now present Sinus rhythm no longer present Electronically Signed On 10-30-22 13:18:43 CLINICAL ADMISSIONS MANAGER by Dewey Bond
[2022-10-30] MEDS ORDERED: NS KCL 20MEQ 20 MEQ/1,000 ML BAG IV SCH (14:00)
--- NOTE | 2022-10-30 16:23 | P.PN ---
Subjective Date of Service: 10/30/22 Primary Care Provider: Townsend Patient has no new complaint. He denies shortness of breath. He is currently in sinus rhythm. Physical Examination - Vital Signs Temperature: 98.2 F Blood Pressure: 139/68 Pulse: 71 Respirations: 18 Pulse Ox (%): 92 - Studies Laboratory Data (last 24 hrs) 10/30/22 09:07: Hgb 9.2 L D, Hct 27.3 L 10/29/22 20:08: Hgb 8.2 L D, Hct 24.0 L Assessment And Plan - Plan General: Alert, In no apparent distress Neck: Supple, no elevated JVD Respiratory: Clear to auscultation bilaterally, Normal air movement Cardiovascular: Normal rate, regular rhythm. Gastrointestinal: Normal bowel sounds, Soft and benign, MATT drain-serosanguineous output Integumentary: No rashes, No ulcers Neurological: Normal speech, Normal affect Urogenital: Black catheter in place. Plan: Patient is currently in sinus rhythm. Continue oral metoprolol. He was given IV digoxin last night. 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 Awaiting cardiology input. Monitor and optimize electrolytes. Xarelto is on hold due to recent bleeding from surgical site. He is tolerating diet.
--- NOTE | 2022-10-30 17:26 | CON ---
Date of Consultation: 10/30/2022 Reason For Consultation: Atrial fibrillation with rapid ventricular response. History Of Present Illness: A 72-year-old male with history of hypertension, atrial fibrillation, dy slipidemia, underwent laparoscopic repair of umbilical hernia. Apparently while in the hospital, he had a rapid ventricular response with atrial fibrillation and then he converted to sinus rhythm on hi s own and he does have paroxysmal atrial fibrillation. He follows periodically in our office for laura t matter. Denies having any chest pain, shortness of breath. Past Medical History: Hypertension, atrial fibrillation, dyslipidemia. Medications: Refer to reconciliation sheet for detailed list. Allergies: HE IS ALLERGIC TO STATINS. Family History: No premature coronary artery disease or cancer. Social History: Does not smoke or drink. Does not use any drugs. Review of Systems: All systems reviewed and they were negative except what mentioned in HPI. Physical Examination: Vital Signs: Reviewed. Head and Neck: Pupils are equal, reactive to light. Intact eye movements. No JVD. No cervical lym phadenopathy. Neck is supple. Thyroid is not enlarged. Lungs: Clear to auscultation bilaterally. No rhonchi, wheezing, or crackles. No accessory muscle u se. Heart: Regular rate and rhythm. No extra sounds. Abdomen: Soft, nontender. Bowel sounds positive. No organomegaly. No masses or hernia. No rigidi ty or rebound. Extremities: No edema, clubbing, or cyanosis. Intact pulses. Skin: No rash. Neurologic: Alert, awake, oriented x3. No acute focal deficits appreciated. Investigations: BUN 22, creatinine 1.22 down from 1.56, and hemoglobin is 9.2. Assessment And Recommendations: 1.Atrial fibrillation with rapid ventricular response, now back in sinus rhythm. Recommend metoprol ol 25 mg twice a day and once it is feasible to resume Eliquis. 2.Umbilical hernia, status post surgical repair. 3.Hypertension. Blood pressure is controlled. The patient is in sinus rhythm and clinically stable . Cardiology will sign off and I will see the patient on an outpatient basis. SR/MODL Voice ID: [id number] Report ID: [id number]
[2022-10-31 04:51] LABS: Absolute Lymphocytes (CBC) 0.9 K/uL (0.7-4.9); Hematocrit 23.8 % (39.6-49.0); Lymphocytes % 15.3 % (15.3-44.8); MCV 87.1 fL (80-100); RBC Red Blood Cell Count 2.74 M/uL (4.33-5.43)
[2022-10-31 05:09] LABS: Potassium 3.9 mmol/L (3.5-5.1)
[2022-10-31] MEDS: CEFAZOLIN 1 GM in NA CHLORIDE 0.9% 50 ML IVPB SCH ×3 (05:34→18:02)
[2022-10-31] MEDS: HYDROCODONE/APAP 7.5/325 MG TAB PO PRN ×2 (06:05→18:04)
[2022-10-31] MEDS: FE SULF/FA/VIT B COMP & C TAB PO SCH (08:00)
[2022-10-31] MEDS: METOPROLOL TAR 25 MG TAB PO SCH ×2 (09:00→09:22)
[2022-10-31] MEDS: FLUTICASONE 50MCG NASAL SPRAY NAS SCH ×2 (09:00→09:17)
[2022-10-31] MEDS: FEXOFENADINE 180 MG TAB PO SCH ×2 (09:00→09:17)
[2022-10-31] MEDS: DOCUSATE NA 100 MG CAP PO SCH (09:17)
[2022-10-31] MEDS: FENOFIBRATE 160 MG TAB PO SCH (09:22)
[2022-10-31] MEDS: FOLIC ACID 1 MG TABLET PO SCH (09:22)
[2022-10-31] MEDS: PANTOPRAZOLE 40MG TABLET PO SCH (09:23)
[2022-10-31] MEDS ORDERED: BISACODYL E.C. 5 MG TAB PO PRN (09:56)
[2022-10-31] MEDS ORDERED: BISACODYL E.C. 5 MG TAB PO ONE (09:56)
[2022-10-31 10:58] VITALS: O2SAT 93
[2022-10-31] MEDS ORDERED: NA CHLORIDE 0.9% 250 ML ONE (11:38)
--- NOTE | 2022-10-31 11:59 | PN ---
Subjective: The patient is awake and alert. No complaints. Vital stable. Afebrile. The patient d id state that when he stands up he feels a little weak. His H and H, was 9.2 last night, it is 7.9 t his morning. His abdomen is benign. Dressing is clean, dry, and intact. MATT output is less than 100 cc per 24 hours. It is serosanguineous in nature. Assessment: Status post hernia repair with intraperitoneal bleeding with a low hemoglobin probably s econdary to a combination of intraperitoneal bleeding as well as hemodilution from the boluses patien t was given when he went into hypertension and rapid ventricular response with atrial fibrillation. Recommendations: We will give the patient 1 unit of blood. We will check his H and H to makes sure it is stable, and he continued to progress. Probable discharge tomorrow morning. Plan of care discu ssed with Dr. Hicks. /MODL Voice ID: [id number] Report ID: [id number]
[2022-10-31] MEDS ORDERED: METOPROLOL TAR 25 MG TAB PO SCH (18:00)
[2022-10-31 18:42] LABS: Hematocrit 28.7 % (39.6-49.0)
--- NOTE | 2022-10-31 19:11 | P.PN ---
Subjective Date of Service: 10/31/22 Primary Care Provider: [place] Patient denies any new complain He remained in sinus rhythm. Hemoglobin dropped to 7.9 from yesterday Physical Examination - Vital Signs Temperature: 97.8 F Blood Pressure: 137/60 Pulse: 88 Respirations: 16 Pulse Ox (%): 95 Assessment And Plan - Current Problems (Diagnosis) (1) Acute blood loss anemia Current Visit: Yes Status: Acute (2) Hematoma Current Visit: Yes Status: Acute (3) Atrial fibrillation with rapid ventricular response Current Visit: Yes Status: Acute - Plan General: Alert, In no apparent distress Neck: Supple, no elevated JVD Respiratory: Clear to auscultation bilaterally, Normal air movement Cardiovascular: Normal rate, regular rhythm. Gastrointestinal: Normal bowel sounds, Soft and benign, MATT drain-serosanguineous output Integumentary: No rashes, No ulcers Neurological: Normal speech, Normal affect Urogenital: Black catheter in place. Plan: Patient is currently in sinus rhythm. Continue oral metoprolol. Continue to hold Xarelto. 1 unit PRBC transfusion ordered for target hemoglobin of 8 given cardiopulmonary disease. 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 Cardiology input appreciated. No further recommendation Monitor and optimize electrolytes. Possible discharge in a.m. if his hemoglobin remains stable.
[2022-10-31] MEDS ORDERED: HOME MED 1 EA UNK (Ascorbate Calcium [Vitamin C] 500 MG Tablet) PO SCH (19:15)
[2022-10-31] MEDS ORDERED: UBIDECARENONE 300 MG PO SCH (19:15)
[2022-10-31] MEDS ORDERED: IRON PO SCH (19:15)
[2022-10-31] MEDS ORDERED: [UNRECOGNIZED DRUG - OTHER] PO SCH (19:15)
[2022-10-31] MEDS ORDERED: FENOFIBRATE 145 MG TAB PO SCH (20:00)
[2022-10-31] MEDS ORDERED: FEXOFENADINE 180 MG TAB PO SCH (21:00)
[2022-11-01] MEDS: CEFAZOLIN 1 GM in NA CHLORIDE 0.9% 50 ML IVPB SCH ×2 (00:37→06:15)
[2022-11-01] MEDS: HYDROCODONE/APAP 7.5/325 MG TAB PO PRN ×2 (00:53→06:15)
[2022-11-01 04:05] LABS: Absolute Lymphocytes (CBC) 0.8 K/uL (0.7-4.9); Hematocrit 27.3 % (39.6-49.0); Lymphocytes % 18.2 % (15.3-44.8); MCV 85.3 fL (80-100); MPV 7.5 fL (7.6-11.3)
[2022-11-01 04:17] LABS: Potassium 3.9 mmol/L (3.5-5.1)
[2022-11-01] MEDS: FE SULF/FA/VIT B COMP & C TAB PO SCH (08:00)
[2022-11-01] MEDS: PANTOPRAZOLE 40MG TABLET PO SCH (08:09)
[2022-11-01] MEDS: DOCUSATE NA 100 MG CAP PO SCH (08:09)
[2022-11-01] MEDS: FOLIC ACID 1 MG TABLET PO SCH (08:09)
[2022-11-01] MEDS: FEXOFENADINE 180 MG TAB PO SCH (08:09)
[2022-11-01] MEDS: FENOFIBRATE 160 MG TAB PO SCH (08:09)
[2022-11-01] MEDS: FLUTICASONE 50MCG NASAL SPRAY NAS SCH (08:10)
[2022-11-01 08:31] VITALS: BP 167/71; TEMP 98
[2022-11-01] MEDS ORDERED: [UNRECOGNIZED DRUG - OTHER] PO SCH (09:00)
[2022-11-01] MEDS ORDERED: K2 PO SCH (09:00)
[2022-11-01] MEDS ORDERED: HOME MED 1 EA UNK (Fluticasone Propionate [Flonase Allergy Relief] 9.9 ML Spray.Susp) NS SCH (09:00)
[2022-11-01] MEDS ORDERED: PANTOPRAZOLE 40MG TABLET PO SCH (09:00)
[2022-11-01] MEDS ORDERED: FOLIC ACID 1 MG TABLET PO SCH (09:00)
[2022-11-01] MEDS ORDERED: VITAMIN D3 PO SCH (09:00)
[2022-11-01] MEDS ORDERED: ASCORBIC ACID 500 MG TABLET PO SCH (12:00)
--- NOTE | 2022-11-02 13:37 | DS ---
Date of Discharge: 11/01/2022 Admitting Diagnosis: Abdominal bleeding. Discharge Diagnosis: Abdominal bleeding with atrial fibrillation with rapid ventricular response dur ing his stay. Hospital Course: The patient is a 72-year-old gentleman, who was admitted after umbilical hernia jeromy eduar with bleeding from his abdominal wound and hypotension. The patient is on beta-blockers. He li s never really had any tachycardia; however, CAT scan shows a little bit of blood on the right side o f his abdomen and small amount in his pelvis, although we could have watched this site, did a diagnos tic laparoscopy to make sure there was no active bleeding and there was none. A drain was placed and postoperatively the patient was doing okay on afternoon. In the evening, he developed AFib with RVR. Hospitalist and Cardiology were consulted. No intervention was taken. No medication david nge was required as the patient went back into sinus rhythm spontaneously. The patient's H and H, ho wever, were close to borderline. Yesterday morning, it was 7.9 and the patient was transfused 1 unit of blood as he was somewhat symptomatic with feeling of weakness. Today, he is tolerating diet, amb ulating, pain controlled with p.o. pain medicine. He is afebrile and feels good and he is ready to g o home. Disposition: Home. Condition: Stable. Discharge Instructions: Resume home medications and diet. Activity as tolerated. Record MATT output q.12 hours, bring record to office. Hemocyte Plus Colace and Keflex as well as pain medications have been called into the patient's pharmacy. The patient to call my office for appointment. ROBERT/JEN Voice ID: [id number] Report ID: [id number]
== END 2022-11-01 08:45 | disposition home or self-care (01) | DRG 909 ==
LOC: ER 15:39 → DS 16:50 → 4TH 18:44 → OBSVTOIN 10-30 16:09
PROVIDERS: ADMIT Surgery; ATTEND Surgery
PROC: 0W3G4ZZ Control Bleeding in Peritoneal Cavity, Percutaneous Endoscopic Approach (ICD-10-PCS; 2022-10-28)
PROC: 0W9G40Z Drainage of Peritoneal Cavity with Drainage Device, Percutaneous Endoscopic Approach (ICD-10-PCS; principal; 2022-10-28 16:30)
DX: K91.840 Postprocedural hemorrhage of a digestive system organ or structure following a digestive system procedure (principal); E78.5 Hyperlipidemia, unspecified; I10 Essential (primary) hypertension; I48.0 Paroxysmal atrial fibrillation; I95.9 Hypotension, unspecified; D64.9 Anemia, unspecified; Z88.8 Allergy status to other drugs, medicaments and biological substances; Z79.01 Long term (current) use of anticoagulants; Z79.899 Other long term (current) drug therapy; Z20.822 Contact with and (suspected) exposure to COVID-19; Y83.8 Other surgical procedures as the cause of abnormal reaction of the patient, or of later complication, without mention of misadventure at the time of the procedure
CPT/HCPCS: 36415; 71045; 74177; 80048; 80076; 83690; 83735; 83880; 84132; 84484; 85014; 85018; 85025; 85610; 86850; 86900; 86901; 87811; 88302; 93005; 94010; 96360; 99285; A4216; G0378; J0330; J0690; J1100; J1160; J1170; J2001; J2270; J2370; J2405; J2704; J2710; J3010; J3480; J7030; J7050; J7120; P9016; P9047; Q9967

== ENCOUNTER 2023-01-26 11:13 | Day surgery (SDC) | payer OTHER ==
[2023-01-15 13:37] LABS: Absolute Lymphocytes (CBC) 1.2 K/uL (0.7-4.9); Hematocrit 36.2 % (39.6-49.0); Lymphocytes % 23.8 % (15.3-44.8); MCV 87.3 fL (80-100); MPV 8.3 fL (7.6-11.3); Potassium 3.9 mEq/L (3.5-5.1); RBC Red Blood Cell Count 4.15 M/uL (4.33-5.43)
[2023-01-15 13:40] LABS: Protime INR 0.97
[2023-01-26] MEDS ORDERED: CEFAZOLIN SODIUM 2 GM/VIAL ONE (11:38)
[2023-01-26] MEDS ORDERED: Ringers Lactate 1,000 ML IV ONE (11:39)
[2023-01-26] MEDS ORDERED: dexAMETHasone 10 MG/ML VIAL ONE (13:05)
[2023-01-26] MEDS ORDERED: propofoL 200 MG/20 ML VIAL IV ONE (13:05)
[2023-01-26] MEDS ORDERED: ONDANSETRON 4 MG/2 ML VIAL ONE (13:05)
[2023-01-26] MEDS ORDERED: MIDAZOLAM HCL 2 MG/2 ML INJ ONE (13:54)
[2023-01-26] MEDS ORDERED: FENTANYL CITR 100 MCG/2 ML ONE (13:54)
[2023-01-26] MEDS ORDERED: TRIAMCINOLONE ACETON 40 MG/ML VIAL ONE (14:04)
[2023-01-26] MEDS ORDERED: GLYCOPYRROLATE 0.2 MG/ML SYR ONE (14:35)
[2023-01-26] MEDS: TRIAMCINOLONE ACETON 40 MG/ML VIAL ONE ×2 (14:57→15:10)
[2023-01-26 16:24] VITALS: BP 130/63; TEMP 98; O2SAT 96
[2023-01-26] MEDS ORDERED: HYDROCODONE/APAP 10/325 TAB ONE (16:52)
--- NOTE | 2023-01-26 19:56 | OP ---
Surgeon: DRISS GONSALEZ Preoperative Diagnosis: Meatal stenosis. Postoperative Diagnosis: Meatal stenosis. Principal Procedures: 1.Urethral dilation using sounds. 2.Cystoscopy. 3.Meatoplasty. 4.Intralesional Kenalog 40 mg. Indication For Procedure: Mr. Forrest presented to the [facility] with obstructive urinary sympt oms and ballooning of the urethra to a point of obstruction in the distal urethra at the meatus disco nila to be secondary to meatal stricture/stenosis. He underwent initial dilation in the office and then performed urethral calibration using a 16-Emirati catheter, but noted that despite the calibratio n, the stenosis progressively began to worsen associated with worsening of his left lower urinary tra ct symptoms. As a result, he was counseled on the recommendation for operative management of the str icture disease and I had initially suggested the potential for a direct vision internal urethrotomy. Procedure In Detail: The patient was consented in the preoperative holding area before being transfe rred to operative suite where general anesthesia was induced. He was given Ancef 2 g IV antimicrobia l prophylaxis and pneumo boots were provided for DVT prophylaxis. He was placed in the lithotomy pos ition, padded and secured to the table appropriately. His genitalia were prepped with Hibiclens and he was draped in standard fashion. The case was begun requiring the use of sounds to dilate a very t ight fossa navicularis stricture from around 14 to 16-Emirati up to 30-Emirati. This was required in o rder to insert the 26-Emirati sheath and obturator for the direct vision internal urethrotome. Once i nserted, I then navigated the visualization of the scope to assess the point of stricture disease, bu t the stricture disease was so distal at the distal end of the fossa navicularis, that attempts to in cise it using the cold knife were unsuccessful. As a result, I instead performed cystoscopy as origi robbin intended and traverse the remainder of the urethra through the prostatic urethra and into the b ladder with ease. The bladder was decompressed of fluid and clear yellow urine. The ureteral orific es were orthotopic in location, and the remainder of the bladder was free of any mucosal lesions, for eign body, or stone. The prostatic urethra was potentially partially obstructive with an elevated me kristine bar without significant lateral lobar hypertrophy. As a result, I removed the cystoscope and th en repositioned the patient to prepare for a formal meatoplasty. I began by using a straight clamp t o crush ligate any bleeding vessels within the ventral portion of the meatal opening and then incised the devascularized tissue in between using tenotomy scissors. This was done twice in order to achie ve an approximately 0.5 cm increased opening in the size of the meatus. At this point, I was then ab michelle to visualize the scarred tissue within the fossa navicularis. As a result, using an 11 blade, I i ncised this tissue ventrally to further generate the opening. Small Rakes were used to hold the part of the meatus while this was performed. Once the scarred mucosa was incised, I then utilized 4-0 Mo nocryl to reapproximate the edge of the incised mucosa with the skin of the glans penis in an interru pted fashion. Once this was performed, I then injected 40 mg of Kenalog in 1 cc of total solution vo lume in and around the meatus in the area that was otherwise incised or opened. In the end, I was ab michelle to pass a 30-Emirati sound into the meatus with ease without any significant obstruction. I then p laced a 22-Emirati 2-way Black catheter via his urethra into his bladder with ease. The catheter was connected to gravity drainage with a leg bag after 10 cc of sterile water was placed in the balloon. He was then taken out of the lithotomy position, awakened from general anesthesia, transferred to a stretcher, and then transferred to the recovery room in good condition. Complications: None. Discharge Disposition: He should keep the urethral Black catheter in situ for the next 7-10 days. I will send him with a prescription for an antimicrobial to be taken for 3 days starting the day prior to the scheduled catheter removal. Care for the catheter and surgery site should be performed using hydrogen peroxide to cleanse the area and Neosporin/triple antibiotic ointment to keep it lubricated . Should the patient have obstructive urinary symptoms beyond the repair of the meatal stenosis, he did have significant elevation of his bladder neck that was observed cystoscopically, which could con tribute to some of his obstruction. Subsequent followup and discussion may be held regarding managem ent of this if necessary. Otherwise, followup should be established in about 2 months interval asses sment of the meatal stenosis and catheter calibration to ensure its patency. WR/MODL Voice ID: [id number] Report ID: [id number]
== END 2023-01-26 17:30 | disposition home or self-care (01) ==
LOC: OR 11:13
PROVIDERS: ATTEND Urology
PROC: 0T9B70Z Drainage of Bladder with Drainage Device, Via Natural or Artificial Opening (ICD-10-PCS; 2023-01-26)
PROC: 0T7D8ZZ Dilation of Urethra, Via Natural or Artificial Opening Endoscopic (ICD-10-PCS; principal; 2023-01-26 13:30)
DX: N35.919 Unspecified urethral stricture, male, unspecified site (principal)
CPT/HCPCS: 52281; 52283; 87088; 85025; 87086; 80048; 36415; 85610; 85730; 51702; J2704; J3301; J3010; J1100; J2405; J7120; J2250

== ENCOUNTER 2023-05-07 19:29 | Emergency (ER) | payer OTHER ==
--- OUTSIDE RECORDS SUMMARY | 2023-05-07 19:38 | XMS REPORT | Continuity of Care Document ---
:1950 Author Organization [facility] Address [address] [place] [address] [place] [id number] Care Team Providers Name Role Phone KEEGAN STRATTON Primary Care Physician Unavailable Keegan Stratton Attending Clinician Unavailable [facility] Attending Clinician Unavailable Zabrina Mcguire MD Attending Clinician ZABRINA MCGUIRE Attending Clinician Unavailable Doctor Unassigned, [place] Attending Clinician Unavailable ROSLYN PERRY Attending Clinician Unavailable [facility] Admitting Clinician Unavailable ZABRINA MCGUIRE Admitting Clinician Unavailable Payers Payer Name Policy Type Policy Number Effective Date Expiration Date S ource BCBS PPO POS EPO [id number] 2013 CHOICE 00:00:00 [employer] MEDICARE HMO [id number] 2019 POS 00:00:00 Problems Condition Condition Condition Status Onset Resolution Last Treating Co mments Source Name Details Category Date Date Treatment Clinician Date No known No known Disease Unive rs active active ity of problems problems [facility] Allergies, Adverse Reactions, Alerts Allergy Allergy Status Severity Reaction(s) Onset Inactive Treating Comm ents Source Name Type Date Date Clinician CO DRUG Active Other-Cmnt Univer s [id number] 5-23 ity of OIL-OMEG 00:00: [place] A 3-E [facility] MEFLOQUI DRUG Active Other-Cmnt Univ ers NE HCL INGREDI 01-26 ity of 00:00: [place] 00 [facility] Branch PITAVAST DRUG Active Other-Cmnt Univ ers ATIN INGREDI 01-26 ity of 00:00: [place] 00 [facility] Branch LOVASTAT DRUG Active Other-Cmnt Univ ers IN INGREDI 01-26 ity of 00:00: [place] 00 [facility] Branch PRAVASTA DRUG Active Other-Cmnt Univ ers TIN INGREDI 01-26 ity of 00:00: [place] 00 [facility] Co Propensi Active Other - See Lowers Uni vers [id number] ty to comments 01-26 blood ity of Oil-Omeg adverse 00:00: pressure [...] o f adverse 00:00: ol [place] reaction Medical s Branch Pravasta Propensi Active Other - See Lowers U nivers tin ty to comments 01-26 cholestro ity o f adverse 00:00: l [place] reaction 00 Medical s Branch Amoxicil Propensi Active Diarrhea Univ ers billie-Pot ty to 03-07 ity of Clavulan adverse 00:00: [place] ate reaction 00 Medical s Branch AMOXICIL DRUG Active Diarrhea Univer s BILLIE-POT 03-07 ity of CLAVULAN 00:00: [place] ATE 00 Medical Branch SIMVASTA DRUG Active Other-Cmnt Univ ers TIN INGREDI 03-07 ity of 00:00: [place] 00 [facility] Branch Simvasta Propensi Active Other - See Mild U nivers tin ty to comments 03-07 Muscle ity of adverse 00:00: [place] in [place] reaction 00 the legs Medica l s Branch NAPROXEN Allergy Active High Hives [facility] 6[facility]04 [facility] AMOXICIL Allergy Active Med Diarrhea [facility] BILLIE [facility]07 [facility] Center MEFLOQUI Allergy Active Low Other [facility] NE 02-07 [facility] 00:[facility]: Medical 00 Center SIMVASTA Allergy Active Low Other [facility] TIN 02-07 [facility] 00:[facility]: Medical 00 Center METOPROL Allergy Active Low Itching [facility] OL 02-07 [facility] SUCCINAT 00:00: Medical E 00 Center Naproxen Drug Active Hives WHELPS [facility] Sodium Allergy 02-07 (BLOOD [facility] 00:00: BLISTERS) Medical 00 Center Amoxicil Drug Active Diarrhea [facility] billie Allergy 02-07 [facility] 00:00: Medical 00 Center Mefloqui Drug Active Other (See [address] [facility] Allergy Comments) 02-07 [facility] 00:[facility]: Medical 00 Center Simvasta Drug Active Other (See 2013-[address] tin Allergy Comments) 02-07 [...] 00:00: [place] reaction 00 Medical s Branch AMOXICIL DRUG Active Diarrhea 0 Univer s BILLIE INGREDI 02-07 ity of 00:00: [place] 00 Medical Branch MEFLOQUI DRUG Active Other-Cmnt Univ ers NE INGREDI 02-07 ity of 00:00: [place] 00 Medical Branch METOPROL DRUG Active ITCHING Univers OL INGREDI 02-07 ity of SUCCINAT 00:00: [place] E 00 Medical Branch Metoprol Propensi Active Itching 2013-0 Unive rs ol ty to 02-07 ity of Succinat adverse 00:00: [place] e reaction 00 Medical s Branch NAPROXEN DRUG Active Other-Cmnt Univ ers SODIUM INGREDI 02-07 ity of 00:00: [place] 00 Medical Branch Naproxen Propensi Active Other - See WHELPS U nivers Sodium ty to comments 02-07 (BLOOD ity of adverse 00:00: BLISTERS) [place] reaction 00 Medical s Branch Social History Social Habit Start Date Stop Date Quantity Comments Source Gender identity [facility] Sexual orientation Univer sity [facility] History SDOH [facility] Alcohol Frequency Medical Center History SDOH [facility] Alcohol Std Drinks Medica l Center History SDOH [facility] Alcohol Binge Medical Betty ter History of Social 2023-04-01 2023-04-01 Univers ity of function 00:00:00 00:00:00 [facility] Exposure to 2022-02-15 2022-02-25 Not sure [facility] SARS-CoV-2 (event) 00:00:00 13:51:00 [facility] Alcohol intake 2020-03-07 2020-03-07 [facility] (finding) Tobacco use and 2014-02-07 2014-02-[address] [facility] [address] [facility] k[facility] exposure 00:00:00 00:00:00 [facility] Alcohol Comment 2014-02-07 2014-02-[address] [facility] 00:00:00 00:00:00 [facility] Sex Assigned At [address] [facility] 00:00:00 00:00:00 [facility] Smoking Status Start Date Stop Date Source Never smoked tobacco [facility] Medications Ordered Filled Start Stop Current Ordering Indication Dosage Frequency Signature Comments Components Source Medication Medication Date Date Medication? Clinician (SIG) Name Name ferrous Yes Take by [facility] gluconate 7-02 mouth. [facility] 324 mg 12:15: Medical (37.[address] [place] [address] iron) Tab zinc 2019- Yes 50mg QD Take [address] gluconate 7-02 by mouth [facility] 50 mg 12:15: daily. Medical tablet Center guaiFENesin 2019-0 Yes 1200mg Q.5D Take 1,[address] (MUCINEX) 7-02 mg by [facility]ukes 600 mg 12 12:15: mouth 2 Medic al hr tablet 33 (two) Center times daily. 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 Medic al 20 MG 33 Center tablet metoprolol 2019-0 Yes 25mg QD Take [address] (TOPROL-XL) 7-02 by mouth Luke s 25 MG 24 hr 12:15: daily. Medi hu tablet 33 [place] montelukast 2019-0 Yes 10mg QD Take 10 [...] MG 12:15: mouth Medical tablet 33 daily. [place] acetaminoph 2019-0 Yes 500mg Take [address] en 7-02 mg by [facility] (TYLENOL) 12:15: mouth Medical 500 MG 33 every 6 Center tablet (six) hours as needed for Pain. fenofibrate 2019-0 Yes 145mg QD Take [address] (TRICOR) 7-02 mg by [facility]ukes 145 MG 12:15: mouth Medical tablet 33 daily. [place] fluticasone 2019-0 Yes 1{spray QD [address] propionate 03-07 } Nasal [facility] (FLONASE) 12:15: route Medical 50 33 daily. Center mcg/actuati on nasal spray Missing or 2019-[address] [facility] Non-Formula 03-07 [facility]ukes ry 12:15: Medical Medication 33 [place] folic acid 2019-0 Yes 1mg QD Take [address] (FOLVITE) 1 - by mouth Luke s MG tablet 12:15: daily. Medica l 33 [place] ferrous 2019-0 Yes Take by [facility] gluconate - mouth. [facility] 324 mg 12:15: Medical (37.5 mg 33 Center iron) Tab zinc 2020-0 Yes 50mg QD Take [address] gluconate 7-02 by mouth [facility]ukes 50 mg 12:15: daily. Medical tablet 33 [place] guaiFENesin 2020-0 Yes 1200mg Q.5D Take 1,[address] (MUCINEX) 7-02 mg by [facility]ukes 600 mg 12 12:15: mouth 2 Medic al hr tablet 33 (two) Center times daily. 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 Medic al 20 MG 33 Center tablet metoprolol 2019-0 Yes 25mg QD Take [address] (TOPROL-XL) 7-02 by mouth Luke s 25 MG 24 hr 12:15: daily. Medi hu tablet 33 [place] montelukast 2019-0 Yes 10mg QD Take [address] (SINGULAIR) 7-02 by mouth Luke s 10 mg 12:15: nightly. Medical tablet 33 [place] balsalazide 2019-0 Yes 2250mg Q.5D Take 2,250 [...] MG 12:15: mouth Medical tablet 33 daily. [place] acetaminoph 2020-0 Yes 500mg Take [address] en 7-02 mg by Lukes (TYLENOL) 12:15: mouth Medical 500 MG 33 every 6 Center tablet (six) hours as needed for Pain. fenofibrate 2020-0 Yes 145mg QD Take [address] (TRICOR) 7-02 mg by [facility]ukes 145 MG 12:15: mouth Medical tablet 33 daily. [place] fluticasone 2020-0 Yes 1{spray QD [address] propionate 7- } Nasal [facility] (FLONASE) 12:15: route Medical 50 33 daily. Center mcg/actuati on nasal spray Missing or 2019-[address] [facility] Non-Formula 03-07 [facility]ukes ry 12:15: Medical Medication [address] [place] [address] folic acid 2019-0 Yes 1mg QD Take [address] (FOLVITE) 1 - by mouth Luke s MG tablet 12:15: daily. Medica l [address] [place] [address] ferrous 2020-0 Yes Take by [facility] gluconate - mouth. [facility]ukes 324 mg 12:15: Medical (37.[address] [place] [address] iron) Tab zinc 2019-0 Yes 50mg QD Take [address] gluconate - by mouth Lukes 50 mg 12:15: daily. Medical tablet [address] [place] [address] guaiFENesin 2019-0 Yes 1200mg Q.5D Take 1,[address] (MUCINEX) 7-02 mg by Lukes 600 mg 12 12:15: mouth 2 Medic al hr tablet 33 (two) Center times daily. 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 Medic al [address] [place] [address] tablet metoprolol 2019-0 Yes 25mg QD Take [address] (TOPROL-XL) 7-02 by mouth Luke s 25 MG 24 hr 12:15: daily. Medi hu tablet [address] [place] [address] montelukast 2019-0 Yes 10mg QD Take [address] (SINGULAIR) - by mouth Luke s 10 mg 12:15: nightly. Medical tablet [address] [place] [address] balsalazide 2019-0 Yes 2250mg Q.5D Take 2,250 [...] MG 12:15: mouth Medical tablet 33 daily. [place] acetaminoph 2020-0 Yes 500mg Take [address] en 7-02 mg by Lukes (TYLENOL) 12:15: mouth Medical 500 MG 33 every 6 Center tablet (six) hours as needed for Pain. fenofibrate 2020-0 Yes 145mg QD Take [address] (TRICOR) 7-02 mg by Lukes 145 MG 12:15: mouth Medical tablet 33 daily. [place] fluticasone 2020-0 Yes 1{spray QD [address] propionate 03-07 } Nasal [facility] (FLONASE) 12:15: route Medical 50 33 daily. [place] mcg/actuati on nasal spray Missing or 2020-[address] Non-Formula 03-07 Lukes ry 12:15: Medical Medication [address] [place] [address] folic acid 2019-0 Yes 1mg QD Take [address] (FOLVITE) 1 03-07 by mouth Luke s MG tablet 12:15: daily. Medica l [address] [place] [address] ferrous 2019-0 Yes Take by [facility] gluconate 7-02 mouth. [facility] 324 mg 12:15: Medical (37.[address] [place] [address] iron) Tab zinc 2019-0 Yes 50mg QD Take [address] gluconate - by mouth Lukes 50 mg 12:15: daily. Medical tablet [address] [place] [address] guaiFENesin 2019-0 Yes 1200mg Q.5D Take 1,[address] (MUCINEX) 7-02 mg by [facility]ukes 600 mg 12 12:15: mouth 2 Medic al hr tablet 33 (two) Center times daily. 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 Medic al [address] [place] [address] tablet metoprolol 2019-0 Yes 25mg QD Take [address] (TOPROL-XL) 7-02 by mouth Luke s 25 MG 24 hr 12:15: daily. Medi hu tablet [address] [place] [address] montelukast 2019-0 Yes 10mg QD Take [address] (SINGULAIR) 7-02 by mouth Luke s 10 mg 12:15: nightly. Medical tablet [address] [place] [address] pantoprazol 2020-0 Yes 20mg QD Take [address] e 7-02 by mouth [facility]ukes (PROTONIX) 12:15: daily. Medic al 20 MG 33 Center tablet metoprolol 2019-0 Yes 25mg QD Take [address] (TOPROL-XL) 7-02 by mouth Luke s 25 MG 24 hr 12:15: daily. Medi hu tablet 33 Center montelukast 2020-0 Yes 10mg QD Take [address] (SINGULAIR) 7-02 by mouth Luke s 10 mg 12:15: nightly. Medical tablet 33 Center balsalazide 2020-0 Yes 2250mg Q.5D Take 2,250 [...] MG 12:15: mouth Medical tablet 33 daily. [place] acetaminoph 2020-0 Yes 500mg Take [address] en 7-02 mg by Lukes (TYLENOL) 12:15: mouth Medical 500 MG 33 every 6 Center tablet (six) hours as needed for Pain. fenofibrate 2020-0 Yes 145mg QD Take [address] (TRICOR) 7-02 mg by Lukes 145 MG 12:15: mouth Medical tablet 33 daily. [place] fluticasone 2020-0 Yes 1{spray QD [address] propionate - } Nasal [facility]ukes (FLONASE) 12:15: route Medical 50 33 daily. Center mcg/actuati on nasal spray Missing or 2020-[address] Non-Formula - Lukes ry 12:15: Medical Medication 33 Center folic acid 2020-0 Yes 1mg QD Take [address] (FOLVITE) 1 -02 by mouth Luke s MG tablet 12:15: daily. Medica l 33 Center ferrous 2020-0 Yes Take by [facility] gluconate 7-02 mouth. [facility]ukes 324 mg 12:15: Medical (37.5 mg 33 Center iron) Tab zinc 2020-0 Yes 50mg QD Take [address] gluconate 7-02 by mouth Lukes 50 mg 12:15: daily. Medical tablet 33 Center guaiFENesin 2020-0 Yes 1200mg Q.5D Take 1,[address] (MUCINEX) 7-02 mg by Lukes 600 mg 12 12:15: mouth 2 Medic al hr tablet 33 (two) Center times daily. 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 balsalazide 2020-0 Yes 2250mg Q.5D Take 2,250 [...] MG 12:15: mouth Medical tablet 33 daily. [place] acetaminoph 2020-0 Yes 500mg Take [address] en 7-02 mg by Lukes (TYLENOL) 12:15: mouth Medical 500 MG 33 every 6 Center tablet (six) hours as needed for Pain. fenofibrate 2020-0 Yes 145mg QD Take [address] (TRICOR) 7-02 mg by Lukes 145 MG 12:15: mouth Medical tablet 33 daily. [place] fluticasone 2020-0 Yes 1{spray QD [address] propionate - } Nasal [facility]ukes (FLONASE) 12:15: route Medical 50 33 daily. Center mcg/actuati on nasal spray Missing or 2020-[address] Non-Formula 7- Lukes ry 12:15: Medical Medication 33 Center folic acid 2020-0 Yes 1mg QD Take [address] (FOLVITE) 1 7-02 by mouth Luke s MG tablet 12:15: daily. Medica l 33 Center ferrous 2020-0 Yes Take by [facility] gluconate 7-02 mouth. [facility] 324 mg 12:15: Medical (37.5 mg 33 Center iron) Tab zinc 2020-0 Yes 50mg QD Take [address] gluconate 7-02 by mouth [facility]ukes 50 mg 12:15: daily. Medical tablet 33 [place] guaiFENesin 2020-0 Yes 1200mg Q.5D Take 1,[address] (MUCINEX) 7-02 mg by Lukes 600 mg 12 12:15: mouth 2 Medic al hr tablet 33 (two) Center times daily. 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 pantoprazol 2020-0 Yes 20mg QD Take [address] e 7-02 by mouth [facility]ukes (PROTONIX) 12:15: daily. Medic al 20 MG 33 Center tablet metoprolol 2019-0 Yes 25mg QD Take [address] (TOPROL-XL) 7-02 by mouth Luke s 25 MG 24 hr 12:15: daily. Medi hu tablet 33 [place] montelukast 2020-0 Yes 10mg QD Take [address] (SINGULAIR) 7-02 by mouth Luke s 10 mg 12:15: nightly. Medical tablet 33 [place] balsalazide 2019-0 Yes 2250mg Q.5D Take 2,250 [...] MG 12:15: mouth Medical tablet 33 daily. [place] acetaminoph 2020-0 Yes 500mg Take [address] en 7-02 mg by Lukes (TYLENOL) 12:15: mouth Medical 500 MG 33 every 6 Center tablet (six) hours as needed for Pain. fenofibrate 2020-0 Yes 145mg QD Take [address] (TRICOR) 7-02 mg by [facility]ukes 145 MG 12:15: mouth Medical tablet 33 daily. [place] fluticasone 2020-0 Yes 1{spray QD [address] propionate - } Nasal [facility] (FLONASE) 12:15: route Medical 50 33 daily. [place] mcg/actuati on nasal spray Missing or Yes . [facility] Non-Formula 03-07 [facility]ukes ry 12:15: Medical Medication 33 [place] folic acid Yes 1mg QD Take [address] (FOLVITE) 1 03-07 by mouth Luke s MG tablet 12:15: daily. Medica l [address] [place] [address] fenofibrate Yes 145mg Take 145 U nivers 145 mg 4-11 mg by ity of tablet 09:29: mouth. [place] [address] Medical Branch [address] in Univers CHLORIDE 4-11 each eye. ity of (KRIS 128 09:29: [place] OPHTHALMIC) Medical Branch fenofibrate Yes 145mg Take 145 U nivers 145 mg 4-11 mg by ity of tablet 09:29: mouth. [place] [address] Medical Branch [address] in Univers CHLORIDE 4-11 each eye. ity of (KRIS 128 09:29: [place] OPHTHALMIC) Medical [place] fenofibrate Yes 145mg Take 145 U nivers 145 mg 4-11 mg by ity of tablet 09:29: mouth. [address] Branch SODIUM Yes Place in Univers CHLORIDE 4-11 each eye. ity of (KRIS 128 09:29: [place] OPHTHALMIC) [address] [place] [address] fenofibrate Yes 145mg Take 145 U nivers 145 mg 4-11 mg by ity of tablet 09:29: mouth. [place] [address] Medical Branch [address] in Univers CHLORIDE 4-11 each eye. ity of (KRIS 128 09:29: [place] OPHTHALMIC) [address] [place] [address] Branch fenofibrate Yes 145mg Take 145 U nivers 145 mg 4-11 mg by ity of tablet 09:29: mouth. [place] [address] Medical Branch [address] in Univers CHLORIDE 4-11 each eye. ity of (KRIS 128 09:29: [place] OPHTHALMIC) Medical [place] pantoprazol Yes 20mg Take 20 mg Univers e 20 mg EC 4-11 by mouth. ity of tablet 09:23: [address] pantoprazol Yes 20mg Take 20 mg Univers e 20 mg EC 4-11 by mouth. ity of tablet 09:23: [address] pantoprazol Yes 20mg Take 20 mg Univers e 20 mg EC 4-11 by mouth. ity of tablet 09:23: [place] [facility] Branch pantoprazol Yes 20mg Take 20 mg Univers e 20 mg EC 4-11 by mouth. ity of tablet 09:23: [place] [facility] pantoprazol Yes 20mg Take 20 mg Univers e 20 mg EC 4-11 by mouth. ity of tablet 09:23: [place] [facility] XARELTO 20 Yes Univers mg tablet 4- ity of 00:00: [place] [facility] XARELTO 20 Yes Univers mg tablet - ity of 00:00: [place] [facility] XARELTO 20 Yes Univers mg tablet - ity of 00:00: [place] [facility] XARELTO 20 Yes Univers mg tablet - ity of 00:00: [place] [facility] XARELTO 20 Yes Univers mg tablet - ity of 00:00: [place] [facility] Branch pseudoephed Yes 1{tbl} Take 1 Un dagoberto rine-guaife 3-19 tablet by ity of nesin 15:46: mouth. [place] 60-600 mg 03 Medical per tablet Branch pseudoephed Yes 1{tbl} Take 1 Un dagoberto rine-gua[place] 3-19 tablet by ity of nesin 15:46: mouth. [place] 60-600 mg 03 Medical per tablet Branch pseudoephed Yes 1{tbl} Take 1 Un dagoberto rine-gua[place] 3-19 tablet by ity of nesin 15:46: mouth. [place] 60-600 mg 03 Medical per tablet Branch pseudoephed Yes 1{tbl} Take 1 Un dagoberto rine-gua[place] 3-19 tablet by ity of nesin 15:46: mouth. [place] 60-600 mg 03 Medical per tablet Branch pseudoephed Yes 1{tbl} Take 1 Un dagoberto rine-gua[place] 3-19 tablet by ity of nesin 15:46: mouth. [place] 60-600 mg 03 Medical per tablet Branch fexofenadin Yes 180mg Take 180 U nivers e 180 mg 3-19 mg by ity of tablet 15:45: mouth. [place] [facility] fexofenadin 2018-0 Yes 180mg Take 180 U nivers e 180 mg 3-19 mg by ity of tablet 15:45: mouth. [address] fexofenadin 2018-0 Yes 180mg Take 180 U nivers e 180 mg 3-19 mg by ity of tablet 15:45: mouth. [address] fexofenadin 2018-0 Yes 180mg Take 180 U nivers e 180 mg 3-19 mg by ity of tablet 15:45: mouth. [address] fexofenadin 2018-0 Yes 180mg Take 180 U nivers e 180 mg 3-19 mg by ity of tablet 15:45: mouth. [address] methylPREDN 2018-0 Yes 84mg Take 21 Uni vers ISolone 3-19 tablets by ity of (MEDROL, 00:00: mouth [place] MEGAN,) 4 mg 00 SEE-INSTRU Med ical tablets CTIONS. Branch follow package directions methylPREDN 2018-0 Yes 84mg Take 21 Uni vers ISolone 3-19 tablets by ity of (MEDROL, 00:00: mouth [place] MEGAN,) 4 mg 00 SEE-INSTRU Med ical tablets CTIONS. Branch follow package directions methylPREDN 2018-0 Yes 84mg Take 21 Uni vers ISolone 3-19 tablets by ity of (MEDROL, 00:00: mouth [place] MEGAN,) 4 mg 00 SEE-INSTRU Med ical tablets CTIONS. Branch follow package directions methylPREDN 2018-0 Yes 84mg Take 21 Uni vers ISolone 3-19 tablets by ity of (MEDROL, 00:00: mouth [place] MEGAN,) 4 mg 00 SEE-INSTRU Med ical tablets CTIONS. Branch follow package directions methylPREDN 2018-0 Yes 84mg Take 21 Uni vers ISolone 3-19 tablets by ity of (MEDROL, 00:00: mouth [place] MEGAN,) 4 mg 00 SEE-INSTRU Med ical tablets CTIONS. Branch follow package directions metoprolol 2018-0 Yes Univers tartrate 25 3-16 ity of mg tablet 00:00: [address] metoprolol 2018-0 Yes Univers tartrate 25 3-16 ity of mg tablet 00:00: [address] metoprolol 2018-0 Yes Univers tartrate 25 3-16 ity of mg tablet 00:00: [address] metoprolol 2018-0 Yes Univers tartrate 25 3-16 ity of mg tablet 00:00: [place] [facility] metoprolol 2018-0 Yes Univers tartrate 25 3-16 ity of mg tablet 00:00: [place] [facility] PROCTO-MED 2018-0 Yes Univers HC 2.5 % 2-27 ity of rectal 00:00: [place] cream 00 Medical Branch PROCTO-MED 2017-0 Yes Univers HC 2.5 % 2-27 ity of rectal 00:00: [place] cream 00 Medical Branch PROCTO-MED 2017-0 Yes Univers HC 2.5 % 2-27 ity of rectal 00:00: [place] cream 00 Medical Branch PROCTO-MED 2017-0 Yes Univers HC 2.5 % 2-27 ity of rectal 00:00: [place] cream Medical Branch PROCTO-MED 2017-0 Yes Univers HC 2.5 % 2-27 ity of rectal 00:00: [place] cream Medical Branch balsalazide 0 Yes Univer s 750 mg 2-15 ity of capsule 00:00: [place] [facility] balsalazide 2017-0 Yes Univer s 750 mg 2-15 ity of capsule 00:00: [place] [facility] balsalazide 0 Yes Univer s 750 mg 2-15 ity of capsule 00:00: [place] [facility] balsalazide 2017-0 Yes Univer s 750 mg 2-15 ity of capsule 00:00: [place] [facility] balsalazide 2017-0 Yes Univer s 750 mg 2-15 ity of capsule 00:00: [place] [facility] fluticasone 2018-0 Yes Univer s 50 2-10 ity of mcg/actuati 00:00: [place] on nasal 00 Medical spray Branch fluticasone 2018-0 Yes Univer s 50 2-10 ity of mcg/actuati 00:00: [place] on nasal 00 Medical spray Branch fluticasone 2018-0 Yes Univer s 50 2-10 ity of mcg/actuati 00:00: [place] on nasal 00 Medical spray Branch fluticasone 2018-0 Yes Univer s 50 2-10 ity of mcg/actuati 00:00: [place] on nasal 00 Medical spray Branch fluticasone 2018-0 Yes Univer s 50 2-10 ity of mcg/actuati 00:00: [place] on nasal 00 Medical spray Branch montelukast 2018-0 Yes Univer s 10 mg 1-08 ity of tablet 00:00: [place] 00 Medical Branch montelukast 2018-0 Yes Univer s 10 mg 1-08 ity of tablet 00:00: [place] 00 Medical Branch montelukast 2018-0 Yes Univer s 10 mg 1-08 ity of tablet 00:00: [place] 00 Medical Branch montelukast 2018-0 Yes Univer s 10 mg 1-08 ity of tablet 00:00: [place] 00 Medical Branch montelukast 2018-0 Yes Univer s 10 mg 1-08 ity of tablet 00:00: [place] 00 Medical Branch Immunizations Ordered Filled Immunization Date Status Comments [facility] e Immunization Name Name SARS-COV-2 COVID-19 2020-11-09 Completed Unive rsity of MODERNA VACCINE 00:00:00 [facility] ical Branch SARS-COV-2 COVID-19 2020-11-09 Completed Unive rsity of MODERNA VACCINE 00:00:00 [facility] ical Branch SARS-COV-2 COVID-19 2020-11-09 Completed Unive rsity of MODERNA 12+ YRS 00:00:00 [facility] ical VACCINE Branch SARS-COV-2 COVID-19 2020-11-09 Completed Unive rsity of MODERNA 12+ YRS 00:00:00 [facility] ical VACCINE Branch SARS-COV-2 COVID-19 2020-11-09 Completed Unive rsity of MODERNA 12+ YRS 00:00:00 [facility] ical VACCINE Branch SARS-COV-2 COVID-19 2020-10-12 Completed Unive rsity of MODERNA VACCINE 00:00:00 [facility] ical Branch SARS-COV-2 COVID-19 2020-10-12 Completed Unive rsity of MODERNA VACCINE 00:00:00 [facility] ical Branch SARS-COV-2 COVID-19 2020-10-12 Completed Unive rsity of MODERNA 12+ YRS 00:00:00 [place] [facility] ical VACCINE Branch SARS-COV-2 COVID-19 2020-10-12 Completed Unive rsity of MODERNA 12+ YRS 00:00:00 [facility] ical VACCINE Branch SARS-COV-2 COVID-19 2020-10-12 Completed Unive rsity of MODERNA 12+ YRS 00:00:00 [facility] ical VACCINE Branch Vital Signs Vital Name Observation Time Observation Value Comments Source HEIGHT 2020-02-23 00:00:00 172.7 cm WEIGHT 2020-02-23 00:00:00 82.237 kg Body height 2023-04-01 14:49:00 175.3 cm [facility] Body weight 2023-04-01 14:49:00 83.915 kg Universi ty [facility] BMI 2023-04-01 14:49:00 27.32 kg/m2 Universi ty [facility] Body height 2022-02-25 18:59:00 172.7 cm [facility]i ty [facility] Body weight 2022-02-25 18:59:00 83.915 kg Universi ty [facility] BMI 2022-02-25 18:59:00 28.13 kg/m2 Universi ty [facility] HEIGHT 2020-02-23 00:00:00 172.7 cm WEIGHT 2020-02-23 00:00:00 82.237 kg Procedures This patient has no known procedures. Plan of Care Planned Activity Planned Date Details Comments Source Future Scheduled 2030-03-07 Screening for malignant [facility] Test 00:00:00 neoplasm of colon [facility] (procedure) [code = 706262962] Future Scheduled 2030-03-07 Screening for malignant [facility] Test 00:00:00 neoplasm of colon Medical Ce [facility] (procedure) [code = 020587704] Future Scheduled 2030-03-07 Screening for malignant [facility] Test 00:00:00 neoplasm of colon [facility] (procedure) [code = 235386757] Future Scheduled 2030-03-07 Screening for malignant [facility] Test 00:00:00 neoplasm of colon Medical Ce [facility] (procedure) [code = 653225773] Future Scheduled 2030-03-07 Screening for malignant [facility] Test 00:00:00 neoplasm of colon [facility] Ce [facility] (procedure) [code = 042260384] Future Scheduled 2030-03-07 Screening for malignant [facility] Test 00:00:00 neoplasm of colon Medical Ce [facility] (procedure) [code = 183475292] Future Scheduled 2030-03-07 Screening for malignant [facility] Test 00:00:00 neoplasm of colon [facility] (procedure) [code = 382859891] Future Scheduled 2030-03-07 Screening for malignant [facility] Test 00:00:00 neoplasm of colon [facility] Ce [facility] (procedure) [code = 875702701] Future Scheduled 2030-03-07 Screening for malignant [facility] Test 00:00:00 neoplasm of colon [facility] (procedure) [code = 232846860] Future Scheduled 2030-03-07 Screening for malignant [facility] Test 00:00:00 neoplasm of colon Medical Ce [facility]ter (procedure) [code = 209289153] Future Scheduled 2022-09-[address] [facility] [code = CT Colonography [facility] (combo)] Future Scheduled 1950 Screening for malignant [facility] Test 00:00:00 neoplasm of colon Medical Ce [facility]ter (procedure) [code = 166172667] Future Scheduled 1950 Screening for malignant [facility] Test 00:00:00 neoplasm of colon Medical Ce [facility] (procedure) [code = 863020224] Future Scheduled 1950 Sigmoidoscopy [facility]code [facility] Future Scheduled 1950 CT Colonography (combo) [facility] Test 00:00:00 [code = CT Colonography [facility] (combo)] Future Scheduled 1950 Screening for malignant [facility] Test 00:00:00 neoplasm of colon Medical Ce [facility]ter (procedure) [code = 260324632] Future Scheduled 1950 Screening for malignant [facility] Test 00:00:00 neoplasm of colon Medical Ce [facility] (procedure) [code = 472699187] Future Scheduled 1950 Sigmoidoscopy [facility]code [facility] Cent[facility] Future Scheduled 1950 CT Colonography (combo) [facility] 00:00:00 [code = [facility] Future Scheduled 1950 Screening for malignant [facility] Test 00:00:00 neoplasm of colon Medical Ce [facility] (procedure) [code = 797116593] Future Scheduled 1950 Screening for malignant [facility] Test 00:00:00 neoplasm of colon [facility] Ce [facility] (procedure) [code = 379055847] Future Scheduled 1950 Sigmoidoscopy [facility]code [facility]oscopy[facility] Medical Cent[facility] r Future Scheduled 1950 CT Colonography (combo) [facility] 00:00:00 [code = CT [facility] ([facility])] Future Scheduled 1950 Screening for malignant [facility] Test 00:00:00 neoplasm of colon Medical Ce [facility] (procedure) [code = 076967017] Future Scheduled 1950 Screening for malignant [facility] Test 00:00:00 neoplasm of colon Medical Ce [facility] (procedure) [code = 521512620] Future Scheduled 1950 Sigmoidoscopy [facility]code = [facility] S[facility]oidoscopy] Medical Cent[facility] r Future Scheduled 1950 CT Colonography (combo) [facility] 00:00:00 [code = CT Colonography [facility] ([facility]bo)] Future Scheduled 1950 Screening for malignant [facility] Test 00:00:00 neoplasm of colon Medical Ce [facility] (procedure) [code = 651962334] Future Scheduled 1950 Screening for malignant [facility] Test 00:00:00 neoplasm of colon [facility] Ce [facility] (procedure) [code = 070432373] Future Scheduled 1950 Sigmoidoscopy [facility]code [facility] S[facility]oscopy] Medical Cente r Encounters Start End Encounter Admission Attending Care Care Encounter Source Date/Time Date/Time Type Type Clinicians Facility Department ID 2023-01-15 Outpatient Keegan Stratton [facility] [id number] Common 10:42:02 [id number] [facility] [place] [facility] 2021-06-10 Outpatient [facility] [id number] SLE 21:09:00 CHUNG 2023-04-06 2023-04-06 [id number] Univers 00:00:00 00:00:00 Zabrina SIMPSON [id number] it y of [place] [id number] Yash as JONO?BLEA [id number] Tn brissa ARGUELLES 198 [facility] OFFICE [facility] 2023-04-01 2023-04-01 [facility] [id number] Univers 10:45:00 10:45:00 Visit Zabrina SIMPSON [id number] [facility] [id number] Yash as JONO?BLEA [id number] Tn brissa ARGUELLES [address] [place] [address] OFFICE [facility] 2023-04-01 2023-04-01 [facility] [id number] Univers 10:45:00 09:55:05 ZABRINAPADMINI jennings [facility] 2022-02-25 2022-02-25 [facility] [id number] Univers 15:45:00 16:15:32 ZABRINA jennings [facility] 2022-02-25 2022-02-25 Office [facility] [id number] Univers 15:45:00 16:15:32 Visit Zabrina SIMPSON [id number] it y [facility] [id number] Yash as JONO?BLEA [id number] Tn brissa ARGUELLES [address] [place] [address] OFFICE [facility] 2022-02-11 2022-02-11 [facility] [id number] Univers 08:52:53 23:59:00 ZABRINA jennings [facility] 2022-02-11 2022-02-11 [facility] [id number] Univers 08:52:53 23:59:00 Encounter Zabrina PRIDE [id number] it[facility] 4.2.7.2.[place] [id number] [facility] [address] [place] [address] 2022-02-11 2022-02-11 Orders Doctor SADAF [id number] Univers 00:00:00 00:00:00 Only Unassigned, DORIS 350.1.13.10 ity of [place] [facility] [id number] Yash as [id number] [address] 2022-01-26 2022-01-26 Outpatient [facility] [id number] Univers 14:35:00 23:59:00 [facility] 2022-01-26 2022-01-26 [facility] [id number] Univers 15:30:00 15:30:00 Visit [facility] [id number] it y of [place] [id number] Yash as JONO?BLEA [id number] [address] MEDICAL OFFICE [facility] 2022-01-26 2022-01-26 Outpatient [facility] [id number] Univers 15:30:00 14:54:29 [facility] 2022-01-26 2022-01-26 Orders Doctor SADAF [id number] Univers 00:00:00 00:00:00 Only Unassigned, DORIS 350.1.13.10 ity of [place] [facility] [id number] Yash as [id number] [address] 2020-11-09 2020-11-09 Outpatient Murphy PERRY [facility] [id number] Univers 10:20:00 10:20:00 [facility] 2020-10-12 2020-10-12 Outpatient [facility] [id number] Univers 10:20:00 10:20:00 [facility] 2020-03-05 2020-03-05 Outpatient [facility] [id number] [facility] 00:00:00 00:00:00 Results Test Description Test Time Test Comments Results Result Comments Source TISSUE EXAM 2020-03-13 Surgical Pathology 10:39:00 Report Case: [id number] Authorizing Provider: Chung Chi MD Collected: 03/07/2020 11:07 AM Ordering Location: [facility] Endoscopy Received: 03/07/2020 02:40 PM Services Pathologist: Elisabeth Abel MD Specimen: Colon Biopsy, Random, BX R/O DYSPLASIA H/O CROHN'S COLON,RANDOM, ENDOSCOPIC BIOPSIES: - NO PATHOLOGIC ALTERATION - NO SIGNIFICANT ARCHITECTURAL DISTORTION SEEN - NO INCREASED CHRONIC INFLAMMATION OR ACTIVITY PRESENT - NO VIRAL INCLUSIONS, MICROSCOPIC COLITIS, DYSPLASIA OR MALIGNANCY PRESENT Signing Pathologist Direct Phone Line: [phone] mane signed by Elisabeth Abel MD on 03/13/2020 at 10:39 [id number] deficiency anemiaColon biopsy, randomReceived in formalin labeled with the same patient's information and "random colon biopsy, rule out dysplasia, history of Crohn's" is a 1.3 x 0.4 x 0.2 cm aggregate of brown-bernard irregular shaped fragment of soft tissue that is submitted in toto in cassette (A1). LENCHO/ewPERFORMED SARS-COV2/RT-PCR ([facility]) 2020-03-07 10:08:00 Test Item Value Reference Range Interpretation Comme nts SARS-COV2/RT-PCR (test code = 6168901) Not Detected Not Detected, N egative SARS-COV-2 PERFORMING LAB (test code = [facility] 7885119) Negative results do not preclude SARS-CoV-2 infection [...] of the Act.Fact Sheet for Healthcare Pro viders:https://www.[employer] ([employer])/Documents/Xpert%20Xpress%20SARS%20CoV-2/Fact%20Sh eets/302-3802%13LWTE-NLP-0%20HEALTHCARE%20PROVIDERS%20FACT%20SHEET.pdfFact Sheet for Healthcare Patients:https://www.[employer] (formerly [employer])/Documents/Xpert%20Xpress%20SARS%20CoV-2/Fact%20Sheets/302-3801%20SARS-COV -2%20PATIENT%20FACT%20SHEET.pdfPerforming Laboratory:[facility] [place] [address] Notes Date/Time Note Provider Source 2023-04-06 [facility] 15:46:48-00:00 Pt order faxed Ngoc Amor MA 04/06/2023 3:46 PM 2023-04-06 Formatting of this note might be differe nt from the original. Lilo Minaya [facility] 15:39:57-00:00 Zahida with [facility] calling. She states that she is needing a PT order for pt. Please advise.
[2023-05-07 21:06] LABS: Absolute Lymphocytes (CBC) 0.6 K/uL (0.7-4.9); Hematocrit 33.2 % (39.6-49.0); Lymphocytes % 14.2 % (15.3-44.8); MCV 86.1 fL (80-100); MPV 7.3 fL (7.6-11.3); Platelets 174 thou/uL (152-406); RBC Red Blood Cell Count 3.86 M/uL (4.33-5.43)
[2023-05-07 21:07] LABS: Protime INR 1.11
[2023-05-07] MEDS ORDERED: NA CHLORIDE 0.9% 1,000 ML ONE (21:09)
[2023-05-07 21:26] LABS: Albumin 3.4 g/dL (3.4-5.0); Bilirubin Direct 0.2 mg/dL (0-0.2); Bilirubin Indirect, Calculated 0.4 mg/dL (0.2-0.8); Bilirubin Total 0.6 mg/dL (0.2-1.0); Magnesium 2.1 mg/dL (1.6-2.4); Potassium 3.9 mEq/L (3.5-5.1); Protein, Total 7.1 g/dL (6.4-8.2)
--- NOTE | 2023-05-07 21:52 | RAD REPORT ---
EXAM DESCRIPTION: RAD - Chest Single View - 05/07/2023 9:45 pm CLINICAL HISTORY: COUGH Chest pain. COMPARISON: Chest Single View dated 10/28/2022; Chest Single View dated 10/28/2022 FINDINGS: Portable technique limits examination quality. The lungs are grossly clear. The heart is normal in size. No displaced fractures. IMPRESSION: No acute intrathoracic process suspected.
--- NOTE | 2023-05-07 22:00 | RAD REPORT ---
EXAM DESCRIPTION: CTAbdomen Pelvis W Contrast - 05/07/2023 9:50 pm CLINICAL HISTORY: Abdominal pain. ABD PAIN COMPARISON: Abdomen Pelvis W Contrast dated 10/28/2022 TECHNIQUE: Biphasic CT imaging of the abdomen and pelvis was performed with 100 ml non-ionic IV cont rast. All CT scans are performed using dose optimization technique as appropriate and may include automated exposure control or mA/KV adjustment according to patient size. FINDINGS: The lung bases are clear. The liver contains numerous small hypodense lesions likely cysts. Spleen, pancreas, adrenal glands an d kidneys are within normal limits. Aortoiliac atherosclerosis. No bowel obstruction, free air, free fluid or abscess. Mild enhancement of the mucosa of the colon is seen likely representing colitis. The appendix is normal. No evidence of significant lymphadenopath y. Mild thickening of the urinary bladder is seen. Fat containing inguinal hernias bilaterally, large r on the left. No suspicious bony findings. IMPRESSION: Mild urinary bladder wall thickening is present which can be seen in cystitis. Correlate with urinalysis would be helpful. Mild mucosal thickening of the colon could indicate colitis.
[2023-05-07] MEDS ORDERED: ONDANSETRON 4 MG/2 ML VIAL ONE ×2 (22:15→23:17)
[2023-05-07] MEDS ORDERED: MORPHINE 2 MG/ML SYR ONE (22:15)
--- NOTE | 2023-05-07 22:29 | ER ---
Nurse's Notes [facility] Name: Bart Forrest Age: 73 yrs Sex: Male : 1950 Arrival Date: 05/07/2023 Time: 19:29 Bed 14 Private MD: Ming Townsend T Diagnosis: Left sided colitis;Diarrhea, unspecified Presentation: 05/07 19:51 Chief complaint: Patient states: I've had diarrhea for 10 days, I feel like I was vc1 running a fever and I am tired. 19:51 Coronavirus screen: Vaccine status: Patient reports receiving the 2nd dose of the covid vc1 vaccine. plus booster; Moderna diarrhea, fatigue, fever, Client presents with at least one sign or symptom that may indicate coronavirus-19. Ebola Screen: Patient negative for fever greater than or equal to 101.5 degrees Fahrenheit, and additional compatible Ebola Virus Disease symptoms Patient denies exposure to infectious person. Patient denies travel to an Ebola-affected area in the 21 days before illness onset. No symptoms or risks identified at this time. Initial Sepsis Screen: Does the patient meet any 2 criteria? No. Patient's initial sepsis screen is negative. Does the patient have a suspected source of infection? No. Patient's initial sepsis screen is negative. Risk Assessment: Do you want to hurt yourself or someone else? Patient reports no desire to harm self or others. Onset of symptoms is unknown. 19:51 Method Of Arrival: Ambulatory vc1 19:51 Acuity: ROBERTO 3 vc1 Triage Assessment: 20:29 General: Appears in no apparent distress. Behavior is calm, cooperative, appropriate vc1 for age. Pain: Complains of pain in anterior aspect of left shoulder Pain does not radiate. EENT: No deficits noted. No signs and/or symptoms were reported regarding the EENT system. Neuro: No deficits noted. Cardiovascular: No deficits noted. Respiratory: No deficits noted. GI: Abdomen is flat, non-distended, Reports diarrhea. : No deficits noted. No signs and/or symptoms were reported regarding the genitourinary system. Derm: No deficits noted. No signs and/or symptoms reported regarding the dermatologic system. Musculoskeletal: No deficits noted. No signs and/or symptoms reported regarding the musculoskeletal system. Historical: - Allergies: 19:51 larium; vc1 19:51 Shbqjif-Qfb-Uvc Reductase Inhibitors; vc1 - PMHx: 19:51 allergies; Atrial Fib; Hyperlipidemia; Hypertension; vc1 - PSHx: 19:51 Hernia repair; vc1 19:51 Exploratory laparotomy; for bleeding; vc1 - Immunization history:: Adult Immunizations up to date, Client reports receiving the 2nd dose of the Covid vaccine. - Social history:: Smoking status: Patient denies any tobacco usage or history of. - Family history:: not pertinent. Screenin:46 Abuse screen: Denies threats or abuse. Denies injuries from another. Nutritional ha1 screening: No deficits noted. Tuberculosis screening: No symptoms or risk factors identified. 22:47 [facility] ED Fall Risk Assessment (Adult) History of falling in the last 3 months, ha1 including since admission No falls in past 3 months (0 pts) Confusion or Disorientation No (0 pts) Intoxicated or Sedated No (0 pts) Impaired Gait No (0 pts) Mobility Assist Device Used No (0 pt) Altered Elimination No (0 pt) Score/Fall Risk Level 0 - 2 = Low Risk Oriented to surroundings, Maintained a safe environment, Educated pt \T\ family on fall prevention, incl call for assistance when getting out of bed. Assessment: 20:20 General: Appears comfortable, Behavior is calm, cooperative. Pain: Denies pain. Neuro: ha1 Level of Consciousness is awake, alert, obeys commands, Oriented to person, place, time, situation. Cardiovascular: Patient's skin is warm and dry. Respiratory: Airway is patent Respiratory effort is even, unlabored, Respiratory pattern is regular, symmetrical. GI: Abdomen is round non-distended, Bowel sounds present X 4 quads. Reports diarrhea. Derm: Skin is pink, warm \T\ dry. Musculoskeletal: Circulation, motion, and sensation intact. Range of motion: intact in all extremities. 21:20 Reassessment: Patient and/or family updated on plan of care and expected duration. Pain ha1 level reassessed. Patient is alert, oriented x 3, equal unlabored respirations, skin warm/dry/pink. 22:20 Reassessment: Patient and/or family updated on plan of care and expected duration. Pain ha1 level reassessed. Patient is alert, oriented x 3, equal unlabored respirations, skin warm/dry/pink. 22:43 Reassessment: discharge pending on antibiotic infusion. ha1 23:28 Reassessment: Patient and/or family updated on plan of care and expected duration. Pain ha1 level reassessed. Patient is alert, oriented x 3, equal unlabored respirations, skin warm/dry/pink. Vital Signs: 19:51 BP 132 / 74; Pulse 78; Resp 18; Temp 99.6(O); Pulse Ox 97% ; Weight 86.18 kg; Height 5 vc1 ft. 8 in. ; Pain 0/10; 20:20 BP 138 / 85; Pulse 82; Resp 16 S; Pulse Ox 99% on R/A; ha1 21:00 BP 124 / 69; Pulse 66; Resp 17 S; Pulse Ox 99% on R/A; ha1 22:00 BP 128 / 73; Pulse 73; Resp 16 S; Pulse Ox 100% on R/A; ha1 23:28 BP 143 / 72; Pulse 67; Resp 17 S; Pulse Ox 100% on R/A; ha1 19:51 Body Mass Index 28.89 (86.18 kg, 172.72 cm) vc1 19:51 Pain Scale: Adult vc1 ED Course: 19:32 Patient arrived in ED. mr 19:32 Ming Townsend MD is Private Physician. mr 20:11 Michael Enriquez MD is Attending Physician. david 20:20 Patient has correct armband on for positive identification. Placed in gown. Bed in low ha1 position. Call light in reach. Side rails up X 1. Adult w/ patient. 20:27 Triage completed. vc1 20:29 Arm band placed on right wrist. vc1 21:05 Melanie Martínez, SON is Primary Nurse. ha1 21:30 Inserted saline lock: 22 gauge in left antecubital area, using aseptic technique. Blood ha1 collected. 21:47 XRAY Chest (1 view) In Process Unspecified. EDMS 21:52 CT Abd/Pelvis - IV Contrast Only In Process Unspecified. EDMS 22:28 Ming Townsend MD is Referral Physician. david 22:47 No provider procedures requiring assistance completed. ha1 23:26 Provided Education on: follow up. ha1 23:26 IV discontinued, intact, bleeding controlled, No redness/swelling at site. Pressure ha1 dressing applied. Administered Medications: 21:05 Drug: NS 0.9% IV 1000 ml Route: IV; Rate: 1 bolus; Site: left antecubital; ha1 23:27 Follow up: Response: No adverse reaction; IV Status: Completed infusion; IV Intake: ha1 1000ml 22:21 Not Given (Patient Refused): morphine IVP or IV 2 mg IVP once over 4 mins ha1 22:21 Not Given (Patient Refused): Ondansetron IVP 4 mg IVP once; over 2 minutes ha1 22:41 Drug: Ciprofloxacin PO 250 mg Route: PO; ha1 23:27 Follow up: Response: No adverse reaction ha1 22:41 Drug: metroNIDAZOLE IVPB 500 mg Volume: 100 ml; Route: IVPB; Rate: 200 ml/hr; Infused ha1 Over: 30 mins; Site: left antecubital; 23:27 Follow up: Response: No adverse reaction; IV Status: Completed infusion; IV Intake: ha1 100ml 22:41 Drug: Ciprofloxacin PO 250 mg Route: PO; ha1 23:27 Follow up: Response: No adverse reaction ha1 23:16 Drug: Ondansetron IVP 4 mg Route: IVP; Site: left antecubital; ha1 23:26 Follow up: Response: No adverse reaction ha1 Medication: 22:47 VIS not applicable for this client. ha1 Intake: 23:27 IV: 100ml; Total: 100ml. ha1 23:27 IV: 1000ml; Total: 1100ml. ha1 Outcome: 22:29 Discharge ordered by . david 23:25 Discharged to home ambulatory, with family. ha1 23:25 Condition: stable 23:25 Discharge instructions given to patient, Instructed on discharge instructions, follow up and referral plans. medication usage, Demonstrated understanding of instructions, follow-up care, medications. 23:28 Patient left the ED. ha1 Signatures: Dispatcher [employer] Michael Bundy MD MD cha Rivera, Mary mr Lilo Titus RN RN vc1 Melanie Martínez RN RN ha1 Corrections: (The following items were deleted from the chart) 19:51 PSHx: Exploratory lab for bleeding; vc1 vc1
--- NOTE | 2023-05-07 22:29 | EDPHYS ---
Physician Documentation [facility] Name: Bart Forrest Age: 73 yrs Sex: Male : 1950 Arrival Date: 05/07/2023 Time: 19:29 Bed 14 Private MD: Ming Townsend T ED Physician Michael Enriquez HPI: 05/07 20:56 This 73 yrs old Male presents to ER via Ambulatory with complaints of david Diarrhea. 20:56 The patient presents to the emergency department with nausea, vomiting, that is david continuous. Onset: The symptoms/episode began/occurred 7 day(s) ago. Possible causes: unknown. The symptoms are aggravated by nothing. The symptoms are alleviated by nothing. Associated signs and symptoms: Pertinent positives: abdominal pain. Severity of symptoms: At their worst the symptoms were mild in the emergency department the symptoms are unchanged. The patient has not experienced similar symptoms in the past. Historical: - Allergies: 19:51 larium; vc1 19:51 Jpmfioe-Tee-Chk Reductase Inhibitors; vc1 - PMHx: 19:51 allergies; Atrial Fib; Hyperlipidemia; Hypertension; vc1 - PSHx: 19:51 Hernia repair; vc1 19:51 Exploratory laparotomy; for bleeding; vc1 - Immunization history:: Adult Immunizations up to date, Client reports receiving the 2nd dose of the Covid vaccine. - Social history:: Smoking status: Patient denies any tobacco usage or history of. - Family history:: not pertinent. ROS: 20:56 Constitutional: Negative for fever, chills, and weight loss, Eyes: Negative for injury, david pain, redness, and discharge, ENT: Negative for injury, pain, and discharge, Neck: Negative for injury, pain, and swelling, Cardiovascular: Negative for chest pain, palpitations, and edema, Respiratory: Negative for shortness of breath, cough, wheezing, and pleuritic chest pain, Back: Negative for injury and pain, : Negative for injury, bleeding, discharge, and swelling, MS/Extremity: Negative for injury and deformity, Skin: Negative for injury, rash, and discoloration, Neuro: Negative for headache, weakness, numbness, tingling, and seizure, Psych: Negative for depression, anxiety, suicide ideation, homicidal ideation, and hallucinations, Allergy/Immunology: Negative for hives, rash, and allergies, Endocrine: Negative for neck swelling, polydipsia, polyuria, polyphagia, and marked weight changes, Hematologic/Lymphatic: Negative for swollen nodes, abnormal bleeding, and unusual bruising. 20:56 Abdomen/GI: Positive for abdominal pain, of the right upper quadrant, left upper quadrant, right lower quadrant and left lower quadrant. Exam: 20:59 Constitutional: This is a well developed, well nourished patient who is awake, alert, david and in no acute distress. Head/Face: Normocephalic, atraumatic. Eyes: Pupils equal round and reactive to light, extra-ocular motions intact. Lids and lashes normal. Conjunctiva and sclera are non-icteric and not injected. Cornea within normal limits. Periorbital areas with no swelling, redness, or edema. ENT: Nares patent. No nasal discharge, no septal abnormalities noted. Tympanic membranes are normal and external auditory canals are clear. Oropharynx with no redness, swelling, or masses, exudates, or evidence of obstruction, uvula midline. Mucous membranes moist. Neck: Trachea midline, no thyromegaly or masses palpated, and no cervical lymphadenopathy. Supple, full range of motion without nuchal rigidity, or vertebral point tenderness. No Meningismus. Chest/axilla: Normal chest wall appearance and motion. Nontender with no deformity. No lesions are appreciated. Cardiovascular: Regular rate and rhythm with a normal S1 and S2. No gallops, murmurs, or rubs. Normal PMI, no JVD. No pulse deficits. Respiratory: Lungs have equal breath sounds bilaterally, clear to auscultation and percussion. No rales, rhonchi or wheezes noted. No increased work of breathing, no retractions or nasal flaring. Back: No spinal tenderness. No costovertebral tenderness. Full range of motion. Male : Normal genitalia with no discharge or lesions. Skin: Warm, dry with normal turgor. Normal color with no rashes, no lesions, and no evidence of cellulitis. MS/ Extremity: Pulses equal, no cyanosis. Neurovascular intact. Full, normal range of motion. Neuro: Awake and alert, GCS 15, oriented to person, place, time, and situation. Cranial nerves II-XII grossly intact. Motor strength 5/5 in all extremities. Sensory grossly intact. Cerebellar exam normal. Normal gait. Psych: Awake, alert, with orientation to person, place and time. Behavior, mood, and affect are within normal limits. 20:59 ECG was reviewed by the Attending Physician. 20:59 Abdomen/GI: Inspection: abdomen appears normal, Bowel sounds: active, all quadrants, Palpation: mild abdominal tenderness, in all quadrants, Liver: no appreciated palpable abnormalities, Hernia: not appreciated. Vital Signs: 19:51 BP 132 / 74; Pulse 78; Resp 18; Temp 99.6(O); Pulse Ox 97% ; Weight 86.18 kg; Height 5 vc1 ft. 8 in. ; Pain 0/10; 20:20 BP 138 / 85; Pulse 82; Resp 16 S; Pulse Ox 99% on R/A; ha1 21:00 BP 124 / 69; Pulse 66; Resp 17 S; Pulse Ox 99% on R/A; ha1 22:00 BP 128 / 73; Pulse 73; Resp 16 S; Pulse Ox 100% on R/A; ha1 23:28 BP 143 / 72; Pulse 67; Resp 17 S; Pulse Ox 100% on R/A; ha1 19:51 Body Mass Index 28.89 (86.18 kg, 172.72 cm) vc1 19:51 Pain Scale: Adult vc1 MDM: 20:11 Patient medically screened. [facility] 21:01 Differential diagnosis: Nonspecific abd pain, gastritis, cholecystitis, pancreatitis, david appendicitis, diverticulitis, viral gastroenteritis, gastroenteritis. Data reviewed: vital signs, nurses notes, lab test result(s), EKG, radiologic studies, CT scan. Consideration of Admission/Observation Escalation of care including admission/observation considered. I considered the following discharge prescriptions or medication management in the emergency department Medications were administered in the Emergency Department. See MAR. Test considered but Not performed: Ultrasound abd usg. Care significantly affected by the following chronic conditions: Hypertension, a fib, hyperlipidemia. Counseling: I had a detailed discussion with the patient and/or guardian regarding the historical points, exam findings, and any diagnostic results supporting the discharge/admit diagnosis, lab results, radiology results. 05/07 20:14 Order name: Basic Metabolic Panel; Complete Time: 21:35 [facility] 05/07 20:14 Order name: CBC with Diff; Complete Time: 21:35 [facility] 05/07 20:14 Order name: LFT's; Complete Time: 21:35 [facility] 05/07 20:14 Order name: Magnesium; Complete Time: 21:35 [facility] 05/07 20:14 Order name: NT PRO-BNP; Complete Time: 21:35 [facility] 05/07 20:14 Order name: PT-INR; Complete Time: 21:35 [facility] 05/07 20:14 Order name: Troponin HS; Complete Time: 21:35 [facility] 05/07 20:14 Order name: Stool Culture [facility] 05/07 20:14 Order name: Lipase; Complete Time: 21:35 [facility] 05/07 20:55 Order name: Fecal Leukocyte Stain [facility] 05/07 20:55 Order name: CDIFF [facility] 05/07 20:14 Order name: XRAY Chest (1 view); Complete Time: 22:20 [facility] 05/07 20:14 Order name: CT Abd/Pelvis - IV Contrast Only; Complete Time: 22:20 [facility] 05/07 20:14 Order name: EKG; Complete Time: 20:26 [facility] 05/07 20:14 Order name: Cardiac monitoring; Complete Time: 20:59 [facility] 05/07 20:14 Order name: EKG - Nurse/Tech; Complete Time: 20:59 [facility] 05/07 20:14 Order name: IV Saline Lock; Complete Time: 20:59 [facility] 05/07 20:14 Order name: Labs collected and sent; Complete Time: 20:59 [facility] 05/07 20:14 Order name: O2 Per Protocol; Complete Time: 20:59 [facility] 05/07 20:14 Order name: O2 Sat Monitoring; Complete Time: 20:59 [facility] EC:59 Rate is 69 beats/min. Rhythm is regular. QRS [place] is Normal. [place] interval is normal. QRS david interval is normal. QT interval is normal. No Q waves. T waves are Normal. No ST changes noted. Clinical impression: Normal ECG and No evidence of ischemia. Interpreted by me. Reviewed by me. Administered Medications: 21:05 Drug: NS 0.9% IV 1000 ml Route: IV; Rate: 1 bolus; Site: left antecubital; ha1 23:27 Follow up: Response: No adverse reaction; IV Status: Completed infusion; IV Intake: ha1 1000ml 22:21 Not Given (Patient Refused): morphine IVP or IV 2 mg IVP once over 4 mins ha1 22:21 Not Given (Patient Refused): Ondansetron IVP 4 mg IVP once; over 2 minutes ha1 22:41 Drug: Ciprofloxacin PO 250 mg Route: PO; ha1 23:27 Follow up: Response: No adverse reaction ha1 22:41 Drug: metroNIDAZOLE IVPB 500 mg Volume: 100 ml; Route: IVPB; Rate: 200 ml/hr; Infused ha1 Over: 30 mins; Site: left antecubital; 23:27 Follow up: Response: No adverse reaction; IV Status: Completed infusion; IV Intake: ha1 100ml 22:41 Drug: Ciprofloxacin PO 250 mg Route: PO; ha1 23:27 Follow up: Response: No adverse reaction ha1 23:16 Drug: Ondansetron IVP 4 mg Route: IVP; Site: left antecubital; ha1 23:26 Follow up: Response: No adverse reaction ha1 Disposition Summary: 05/07/23 22:29 Discharge Ordered Location: Home david Problem: new david Symptoms: have improved david Condition: Stable david Diagnosis - Left sided colitis david - Diarrhea, unspecified david Followup: david - With: Ming Townsend MD - When: 2 - 3 days - Reason: Recheck today's complaints, Continuance of care, Re-evaluation by your physician Followup: david - With: Private Physician - When: 2 - 3 days - Reason: Recheck today's complaints, Continuance of care, Re-evaluation by your physician Discharge Instructions: - Discharge Summary Sheet [facility] - Food Choices to Help Relieve Diarrhea, Adult david - Diarrhea, Adult david - Diarrhea, Adult, [id number] [facility] Forms: - Medication Reconciliation Form [facility] - Thank You Letter [facility] - Antibiotic Education [facility] - Prescription Opioid Use [facility] - Patient Portal Instructions [facility] - Leadership Thank You Letter [facility] Prescriptions: - Cipro 250 mg Oral Tablet - take 1 tablet by ORAL route every 12 hours; 10 tablet; Refills: 0, Product david Selection Permitted - Flagyl 500 mg Oral Tablet - take 1 tablet by ORAL route every 8 hours for 7 days; 21 tablet; Refills: 0, [facility] Product Selection Permitted - Pepcid 20 mg Oral Tablet - take 1 tablet by ORAL route every 12 hours for 10 days; 20 tablet; Refills: 0, [facility] Product Selection Permitted - dicyclomine 10 mg/5 mL Oral Solution - take 10 milliliters by ORAL route 4 times per day; 180 milliliter; Refills: 0, [facility] Product Selection Permitted Signatures: Dispatcher [employer] EDMichael Garcia MD MD david Calcote, Lilo, RN RN vc1 Melanie Martínez RN RN ha1 Rachel Stephens RN RN pf1 Corrections: (The following items were deleted from the chart) 20:29 19:51 PSHx: Exploratory lab for bleeding; vc1 vc1
[2023-05-07] MEDS ORDERED: METRONIDAZOLE 500mg IVPB 500 MG/100 ML BAG IV ONE (22:45)
[2023-05-07] MEDS ORDERED: CIPROFLOXACIN HCL 500 MG TAB ONE (22:45)
[2023-05-07 23:49] VITALS: TEMP 99.6
[2023-05-08 00:11] VITALS: O2SAT 100
[2023-05-08 00:14] VITALS: BP 143/72
[2023-05-08 07:05] LABS: C.diff Antigen/Toxin Ag neg : Tox neg (NEG : NEG)
--- NOTE | 2023-05-08 14:37 | EKG ---
Test Date: 2023-05-07 Test Time: 20:53:42 Tank Setter: AIDEN MEASUREMENT RESULTS: Intervals: Rate: 69 [place]: 144 QRSD: 106 QT: 374 QTc: 400 [place]: P: 67 [place]: 144 QRS: 48 T: 20 INTERPRETIVE STATEMENTS: Normal sinus rhythm Normal ECG Compared to ECG 10/30/2022 02:37:06 T-wave abnormality no longer present Possible ischemia no longer present Electronically Signed On 05-08-23 14:36:09 CDT by Dewey Bond
--- NOTE | 2023-05-11 16:59 | EKG ---
Test Date: 2023-05-07 Test Time: 20:50:16 Manager Agriculture: AIDEN MEASUREMENT RESULTS: Intervals: Rate: 68 [place]: 144 QRSD: 94 QT: 372 QTc: 395 [place]: P: 111 [place]: 144 QRS: 148 T: 178 INTERPRETIVE STATEMENTS: Suspect arm lead reversal, interpretation assumes no reversal Normal sinus rhythm Lateral infarct, age undetermined Inferior infarct, age undetermined Abnormal ECG Compared to ECG 10/30/2022 02:37:06 Myocardial infarct finding now present T-wave abnormality no longer present Possible ischemia no longer present Electronically Signed On 05-11-23 16:48:34 CDT by Dewey Bond
== END 2023-05-07 23:28 | disposition home or self-care (01) ==
LOC: ER 19:29
DX: K51.50 Left sided colitis without complications (principal); I10 Essential (primary) hypertension; Z88.8 Allergy status to other drugs, medicaments and biological substances
CPT/HCPCS: 96365; 96361; 93005 ×2; 87045; 85025; 80048; 36415; 83735; 89055; 85610; 80076; 87046; 87324; 84484; 83690; 83880; 74177; 71045; 96375; 99284; Q9967; J2405; J7030; J2270

== ENCOUNTER 2025-04-25 11:00 | Day surgery (SDC) | payer OTHER ==
[2025-04-24 08:58] LABS: Absolute Lymphocytes (CBC) 1.0 K/uL (0.7-4.9); Hematocrit 32.3 % (39.6-49.0); Hemoglobin 11.0 g/dL (13.6-17.9); MCH 29.0 pg (27.0-35.0); MCHC 34.0 g/dL (32.0-36.0); MCV 85.2 fL (80-100); MPV 7.9 fL (7.6-11.3); Nucleated RBC Absolute Count 0.0 (0-0); Nucleated Red Blood Cells % 0.0 % (0-0); RBC Red Blood Cell Count 3.79 M/uL (4.33-5.43); White Blood Count 4.00 thou/uL (4.3-10.9)
[2025-04-24 09:08] LABS: PT Prothrombin Time 13.0 SECONDS (10-13.0); PTT, Activated Partial Thromb 40.0 SECONDS (27.2-37.4); Protime INR 1.16
[2025-04-24 09:16] LABS: Anion Gap 6.8 mEq/L (5.0-15.0); BUN Blood Urea Nitrogen 20.0 mg/dL (7-18); Glucose Level 100.0 mg/dL (74-106); Potassium 3.8 mEq/L (3.5-5.1)
[2025-04-25] MEDS ORDERED: NA CHLORIDE 0.9% 500 ML ONE (11:30)
[2025-04-25] MEDS ORDERED: VERAPAMIL HCL 10 MG/4 ML VIAL IV ONE (11:35)
[2025-04-25] MEDS ORDERED: LIDOCAINE 1% 20 ML MDV ONE (11:35)
[2025-04-25] MEDS ORDERED: HEPA 1000U/500MLS 2,000 UNIT/1,000 ML BAG IV ONE (11:35)
[2025-04-25] MEDS ORDERED: HEPARIN 10,000 UNIT/10 ML VIAL IV ONE (11:35)
[2025-04-25] MEDS ORDERED: ATROPINE SULF 1 MG/10 ML SYR IV ONE (11:35)
[2025-04-25] MEDS ORDERED: CLOPIDOGREL 75 MG TABLET ONE (11:36)
[2025-04-25] MEDS ORDERED: TICAGRELOR 90 MG TABLET PO ONE (11:36)
[2025-04-25] MEDS ORDERED: HEPARIN 5000 UNIT/ML 1 ML VIAL ONE (11:36)
[2025-04-25] MEDS ORDERED: ASPIRIN 325 MG TAB ONE (11:36)
[2025-04-25] MEDS ORDERED: FENTANYL CITR 100 MCG/2 ML ONE (11:50)
[2025-04-25] MEDS ORDERED: MIDAZOLAM HCL 2 MG/2 ML INJ ONE (11:51)
--- NOTE | 2025-04-25 12:56 | OP ---
Date of Procedure: 04/25/2025 Surgeon: IDALIA TREADWELL Procedure Performed: Selective coronary angiogram. Indication: Unstable angina. Access: Right radial artery 6-Iraqi closed with TR band. Complications: None. Bleeding: Less than 50 mL. Total Sedation Time: 45 minutes, used fentanyl and Versed. Description Of Procedure: After risks, benefits, and alternatives were explained, the patient agreed to procedure and signed informed consent. The patient was brought into cardiac catheterization [facility], prepped and draped in usual sterile fashion. Then, I accessed right radial artery using pedi atric micropuncture kit, ultrasound guidance, and placed a 6-Iraqi slender sheath and took 5-Iraqi [place] 4.0 catheter into aortic root, engaged the RCA, took standard views, and in the left main, took standard views. Then I removed the catheter and the sheath, placed TR band with good hemostasis. Findings: 1. Left main; very large, about 10 mm vessel with distal 30% to 40% stenosis, still with very large l umen left behind. 2. LAD; very large vessel, normal. Normal diagonal branches. 3. large and dominant and normal. Normal OM branches. 4. RCA; small, nondominant, and normal. Conclusion: Moderate left main disease. Distal left main disease. Recommendation: Medical management and repeat stress test in 6 months. SR/MODL Voice ID: [id number] Report ID: [id number]
[2025-04-25 14:41] VITALS: BP 143/67; O2SAT 100
== END 2025-04-25 14:45 | disposition home or self-care (01) ==
LOC: CCL 11:00
PROVIDERS: ATTEND Internal Medicine
DX: I25.110 Atherosclerotic heart disease of native coronary artery with unstable angina pectoris (principal); I10 Essential (primary) hypertension; E78.5 Hyperlipidemia, unspecified; Z88.0 Allergy status to penicillin; Z88.8 Allergy status to other drugs, medicaments and biological substances; Z82.49 Family history of ischemic heart disease and other diseases of the circulatory system; E78.2 Mixed hyperlipidemia; I48.0 Paroxysmal atrial fibrillation
CPT/HCPCS: 93005; 85025; 80048; 36415; 85610; 85730; 93454; 76937; C1893; Q9966; J1644 ×2; J2003; J2250; J3010; J7040; 99152; 99153; J0461